=== PATIENT | male | born 1955 | race American Indian/Alaskan Native ===

== ENCOUNTER 2018-07-23 10:21 | Inpatient (IN) | payer MEDICARE, OTHER ==
[~2018-07-23 10:21] MED LIST: Sodium Bicarbonate (8.4%) 50 Meq Syringe ONE
--- NOTE | 2018-07-23 10:29 | C.PDOC ---
History Of Present Illness Patient BIBA from dialysis s/p cardiac arrest (completed 3 hrs). As per EMS, patient was eating a protein bar and then arrested (? choking episode). He was given epi x6 + CaCl in the field, and shocked once (ventricular fibrillation). Arrives to ED intubated, with CPR in progress. Time Seen by Provider: 07/23/18 10:21 Chief Complaint (Nursing): Cardiac Arrest History Per: EMS Reason For Code Blue: Full Arrest Circumstances: Brought To ED By EMS Arrest Witnessed By: Nurse Down-Time Before ACLS: Mins (60 minutes) Treatment Initiated Prior To MD Arrival: Yes: CPR, BVM Ventilations, Intubation, Defibrillation, IVF, ACLS Medication Initiation, IV Access - Initial Findings Mentation: Unresponsive Respirations: None (Assisted) Past Medical History Reviewed: Historical Data, Nursing Documentation, Vital Signs - Medical History PMH: No Chronic Diseases Family History: States: No Known Family Hx Review Of Systems Review Of Systems: ROS cannot be obtained secondary to pt's inabilty to answer questions. Physical Exam - Physical Exam Appears: Other (unresponsive ) Head: Atraumatic, Normacephalic Eye(s): bilateral: Other (fixed B/L ) Oral Mucosa: Moist Cardiovascular: Other (pulseless) Respiratory: Other (assisted ventilations, equal breath sounds B/L ) Gastrointestinal/Abdominal: Normal Exam, Bowel Sounds, Soft, No Tenderness, Other (obese) ED Course And Treatment - Laboratory Results Result Diagrams: 07/23/18 11:04 07/23/18 11:04 O2 Sat by Pulse Oximetry: 100 (ambu) Pulse Ox Interpretation: Normal Progress Note: Epi x1 given, patientregained pulse at next pulse check - atrial fibrillation on EKG. Approx ten minutes later, patient become bradycardic and then lost pulse again. Epi x1 given and patient regained pulse. IO right tibia inserted by me, (+) good flushing. Blood drawn from right brachial artery by me. Patient lost pulse again - epi x1 and CPR started. At next rhythm check (+) good pulse with organized rhythm. Spoke with plumbing and heating mechanic Dr. Carty, will come down and see patient. Patient's in ED, made aware of michael wayne's condition and multiple arrests. He wants everything done for patient. Central Line Placement - Central Line Placement Indication: Emergent IV Access Central Line Placement: Left: Femoral The Area Was Thoroughly Prepared With: Chlorhexidine Procedure: Triple Lumen, Placed Using Standard Seldinger Technique, Catheter Was Sewn Into Place, Sterile Dressing Placed Over Line, Procedure Tolerated Well Disposition - Disposition Forms: [employer] (Indonesian)
[2018-07-23 10:42] VITALS: BMI 30.4
[2018-07-23] MEDS ORDERED: DOPamine 400mg/250ml D5W 400 MG/250 ML BAG IV ONE (10:47)
[2018-07-23 11:15] LABS: BASO # 0.1 K/uL (0.0-0.2); BASO % 0.4 % (0.0-2.0); EOS # 0.4 K/uL (0.0-0.7); EOS % 1.5 % (0.0-4.0); HEMOGLOBIN 9.5 g/dL (12.0-18.0); LYMPH # 10.1 K/uL (1.0-4.3); LYMPH % 43.3 % (20.0-40.0); MEAN CELL VOLUME 93.8 fL (80.0-94.0); MEAN CORPUSCULAR HEMOGLOBIN 27.5 pg (27.0-31.0); MEAN CORPUSCULAR HGB CONC 29.4 g/dL (33.0-37.0); MEAN PLATELET VOLUME 8.3 fL (7.2-11.7); MONO # 1.1 K/uL (0.0-0.8); MONO % 4.9 % (0.0-10.0); NEUT # 11.6 K/uL (1.8-7.0); NEUT % 49.9 % (50.0-75.0); NRBC % 0.3 % (0.0-2.0); RBC 3.46 Mil/uL (4.40-5.90); RED CELL DISTRIBUTION WIDTH 16.7 % (11.5-14.5); WHITE BLOOD COUNT 23.3 K/uL (4.8-10.8)
[2018-07-23 11:22] LABS: INR 1.1; PROTHROMBIN TIME 12.5 SECONDS (9.7-12.2)
[2018-07-23 11:25] LABS: ALB/GLOB RATIO 1.6 (1.0-2.1); ALBUMIN 3.9 g/dL (3.5-5.0); CALCIUM 9.6 mg/dl (8.6-10.4)
--- NOTE | 2018-07-23 11:45 | CP.PCM.CON ---
History of Present Illness - History of Present Illness History of Present Illness: ICU Consult Note for Dr. Carty This is a 63 y o male with PMhx HIV (dx in 2005, currently on HAART tx), DM, HTN, HLD, CAD s/p 3 stents, and ESRD on HD MWF, who presented to the ED [facility] s/p cardiac arrest at dialysis (completed 3 hrs of tx). As per EMS pt was eating a protein bar and then arrested, possible choking episode. Pt was given Epi x6 and CaCl in the field, shock x1 given for V-fib. Pt arrived in the ED s/p intubation, with CPR in progress. Epi x1 additionally given in ED, pt achieved ROSC at next pulse check, A-fib was present on EKG in ED. 10 mins later, pt became bradycardic and then pulseness. Epi x1 was given again and pt regained pulse. S/p IO placement in R tibia x1. Pt then lost pulse again, epi x1 given, CPR re-initiated. At next rhythm check pt regained pulse and organized rhythm was present on loaf counter. Reason for ICU consult was for s/p cardiac arrest x3. Unable to obtain HPI and ROS from pt due to pt's current clinical status. Pt's at bedside provided most of hx leading up to presentation to ED. As per , pt presented with productive cough with white sputum since last Monday07/20/18, instructed pt to go to ED because symptoms were not improving, but pt stated at time that he did not feel that terrible and would go to his dialysis appt this am before reconsidering. Compliant with home medications and dialysis treatments as per pt's . PMhx: as noted above PSurgHx: cardiac stents x3, s/p AV fistula placement in 2017 Allergies: peanut butter (hives) Home meds: reviewed as per JUN Fam hx: unknown Soc hx: Former light cigarette smoker quit 30 y ago; denies EtOH or illicit drug use; lives at home with Primary survey statistician: Dr. Guthrie ([facility] [place] Primary ID: Dr. Saenz Past Patient History - Past Social History Smoking Status: Unknown If Ever Smoked - PSYCHIATRIC Hx Substance Use: No (UNKNOWN) - SURGICAL HISTORY Hx Surgeries: (UNKNOWN) - ANESTHESIA Hx Anesthesia: No (UNKNOWN) Meds Allergies/Adverse Reactions: Allergies Allergy/AdvReac Type Severity Reaction Status Date / Time No Known Allergies Allergy Verified 07/23/18 10:41 Results - Vital Signs Recent Vital Signs: Last Vital Signs Temp Pulse 93 H 07/23/18 11:33 Resp 16 07/23/18 11:33 BP 94/49 L 07/23/18 11:33 Pulse Ox 100 07/23/18 11:33 - Labs Result Diagrams: 07/23/18 14:44 07/23/18 14:44 Labs: Laboratory Results - last 24 hr 07/23/18 07/23/18 07/23/18 11:04 11:04 11:04 WBC 23.3 H RBC 3.46 L Hgb 9.5 L Hct 32.5 L MCV 93.8 MCH 27.5 MCHC 29.4 L RDW 16.7 H Plt Count 99 L MPV 8.3 Neut % (Auto) 49.9 L Lymph % (Auto) 43.[address] [place] [facility] % (Auto) 4.9 Eos % (Auto) 1.5 Baso % (Auto) 0.4 Neut # (Auto) 11.6 H Lymph # (Auto) 10.[address] [place] [facility] # (Auto) 1.1 H Eos # (Auto) 0.4 Baso # (Auto) 0.1 Differential Comment PT 12.5 H INR 1.1 APTT 45 H Sodium 141 Potassium 3.1 L Chloride 95 L Carbon Dioxide 16 L Anion Gap 32 H BUN 13 Creatinine 6.6 H Est GFR ( Amer) 10 Est GFR (Non-Af Amer) 9 Random Glucose 304 H Calcium 9.6 Total Bilirubin 0.4 ALT 335 H Alkaline Phosphatase 49 Total Creatine Kinase 277 H Total Protein 6.4 Albumin 3.9 Globulin 2.4 Albumin/Globulin Ratio 1.6 Assessment & Plan - Assessment and Plan (Free Text) Assessment: This is a 63 y o male with PMhx HIV (dx in 2004, currently on HAART tx), DM, HTN, HLD, CAD s/p 3 stents, and ESRD on HD MWF, who presented to the ED [facility] s/p cardiac arrest at dialysis (completed 3 hrs of tx). Reason for ICU consult was for s/p cardiac arrest x3. Plan: Neuro: -Intubated, unable to assess at this time -Cont to monitor -CT head on admission: Mild-moderate diffuse and conflient chronic periventricular white matter ischemic changes seen extending peripherally into the deep and subcortical white matter both cerebral hemispheres. Additionally, there also appears to be scattered chronic b/l basal nuclei lacunar type infarcts. Note possibility of a small hyperacute infarct cannot be excluded based on this exam. Mild to moderate generalized volume loss. Mucoperiosteal inflammatory changes seen within all the paranasal sinuses. Fusion anomaly anterior arch C1. Cardio: -S/p cardiac arrest x3 as noted above in detail -Hypothermic protocol -Tylenol, Meperidine prn for chills -Hx HTN, HLD, CAD s/p 3 stents -Trop elevated on admission, cont to trend q8h -BNP elevated on admission -Cardiology consulted, Dr. eLón, recs appreciated -Echo pending -ASA, Plavix -Lasix bid, monitor K -Zetia -Metoprolol, Procardia XL -Crestor -Pending A1c and lipid panel Pulm: -Currently on ventilator s/p intubation 2/2 cardiac arrest -Metabolic acidosis present on ABG on admission: 7.03/23/267/6.8 -Duoneb q4h -Cont to monitor -Maintain O2 sat > 92% GI: -NPO -Protonix -No acute issues at this time Renal: -Hx ESRD on HD MWF -Nephrology consulted (Dr. Queen), recs appreciated -BUN/Cr 13/6.6 -Cont to trend I's/O's ID: -Hx HIV on HAART rx, home meds restarted -ID consulted, Dr. Hamilton, recs appreciated -Leukocytosis -On hypothermic protocol s/p cardiac arrest -No anbx at this time Heme: -H/H demonstrates anemia, may be 2/2 HIV diagnosis -Pending iron studies, B12, folate, retic ct -Thrombocytopenia corrected on repeat CBC, cont to trend -L-shift present PPX: -Protonix, Heparin -Currently full code status Pt seen, examined with, and plan discussed with Dr. Carty, attending physician. Momo Hsu DO PGY-1, Benefit Director Pager #[phone]
[2018-07-23 11:49] LABS: CK-MB 5.15 ng/mL (0.0-3.38)
[2018-07-23 11:57] LABS: ARTERIAL BLOOD GAS HCO3 6.8 mmol/L (21-28); ARTERIAL BLOOD GAS O2 SAT 100.6 % (95-98); ARTERIAL BLOOD GAS PCO2 23 mm/Hg (35-45); ARTERIAL BLOOD GAS PH 7.03 (7.35-7.45); ARTERIAL BLOOD GAS PO2 267 mm/Hg (80-100); ARTERIAL BLOOD GAS TCO2 6.8 mmol/L (22-28)
[2018-07-23 12:13] LABS: TROPONIN I 0.224 ng/mL (0.00-0.120)
[2018-07-23] MEDS ORDERED: DOPamine 400mg/250ml D5W 400 MG/250 ML BAG IV STA (12:18)
--- NOTE | 2018-07-23 12:38 | RAD ---
Date of service: 07/23/2018 PROCEDURE: CHEST RADIOGRAPH, 1 VIEW HISTORY: chest pain COMPARISON: None available. FINDINGS: Endotracheal tube terminates 2.3 cm proximal to the belkis. The nasogastric tube terminates in the stomach. LUNGS: The lungs are well inflated. There is mild pulmonary venous congestion with redistribution PLEURA: No pneumothorax or pleural effusion. CARDIOVASCULAR: Severe cardiomegaly. There are aortic atherosclerotic calcifications present. OSSEOUS STRUCTURES: Within normal limits for the patient's age. VISUALIZED UPPER ABDOMEN: Normal. OTHER FINDINGS: None. IMPRESSION: Endotracheal tube terminates 2.3 cm proximal to the belkis. Nasogastric tube terminates in the stomach. Severe cardiomegaly and mild pulmonary venous congestion with redistribution.
[2018-07-23] MEDS ORDERED: Sodium Chloride 0.9% 500 ML IV ONE (14:27)
[2018-07-23] MEDS ORDERED: Sodium Bicarbonate (8.4%) 50 Meq Syringe IVP ONE (14:30)
--- NOTE | 2018-07-23 14:40 | CT ---
Date of service: 07/23/2018 PROCEDURE: CT HEAD WITHOUT CONTRAST. HISTORY: Rule out hemorrhage COMPARISON: No prior study available for comparison. TECHNIQUE: Axial computed tomography images were obtained through the head/brain without intravenous contrast. Radiation dose: Total exam DLP = 1418.95 mGy-cm. This CT exam was performed using one or more of the following dose reduction techniques: Automated exposure control, adjustment of the mA and/or kV according to patient size, and/or use of iterative reconstruction technique. FINDINGS: HEMORRHAGE: No intracranial hemorrhage. BRAIN: Mild-moderate diffuse and confluent chronic periventricular white matter ischemic changes seen extending peripherally into the deep and subcortical white matter both cerebral hemispheres. Additionally, there also appears to be scattered chronic bilateral basal nuclei lacunar type infarcts. Note possibility of a small hyperacute infarct cannot be excluded based on this exam. Mild to moderate generalized volume loss. Vascular calcifications both carotid siphons and vertebral arteries. VENTRICLES: No obstructive hydrocephalus. CALVARIUM: Calvarium intact Note made of what probably represents a fusion anomaly (incomplete fusion left parasagittal anterior arch of C1 vertebral body. PARANASAL SINUSES: Mild mucosal thickening seen within multiple ethmoid air cells with extension superiorly into the inferior aspect of the frontal sinus.. Mucosal thickening with questionable small fluid levels both maxillary antra. There is also minor mucosal thickening in the sphenoid sinus MASTOID AIR CELLS: Unremarkable as visualized. No inflammatory changes. OTHER FINDINGS: Changes of bilateral cataract surgery. IMPRESSION: Mild-moderate diffuse and confluent chronic periventricular white matter ischemic changes seen extending peripherally into the deep and subcortical white matter both cerebral hemispheres. Additionally, there also appears to be scattered chronic bilateral basal nuclei lacunar type infarcts. Note possibility of a small hyperacute infarct cannot be excluded based on this exam. Mild to moderate generalized volume loss. Mucoperiosteal inflammatory changes seen within all the paranasal sinuses. 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
[2018-07-23 14:50] LABS: BASO % 0.3 % (0.0-2.0); EOS % 0.2 % (0.0-4.0); HEMOGLOBIN 10.1 g/dL (12.0-18.0); LYMPH # 1.1 K/uL (1.0-4.3); LYMPH % 7.4 % (20.0-40.0); MEAN CORPUSCULAR HEMOGLOBIN 28.1 pg (27.0-31.0); MEAN CORPUSCULAR HGB CONC 31.5 g/dL (33.0-37.0); MEAN PLATELET VOLUME 8.8 fL (7.2-11.7); MONO # 1.2 K/uL (0.0-0.8); MONO % 7.7 % (0.0-10.0); NEUT # 12.9 K/uL (1.8-7.0); NEUT % 84.4 % (50.0-75.0); NRBC % 0.3 % (0.0-2.0); PLATELET COUNT 178 K/uL (130-400); RBC 3.59 Mil/uL (4.40-5.90); WHITE BLOOD COUNT 15.2 K/uL (4.8-10.8)
[2018-07-23 15:00] LABS: SQUAMOUS EPITHIAL < 1 /hpf (0-5); URINE BACTERIA RARE (<OCC); URINE BILIRUBIN NEGATIVE (NEGATIVE); URINE BLOOD NEGATIVE (NEGATIVE); URINE CLARITY Hazy (Clear); URINE COLOR Yellow (YELLOW); URINE GLUCOSE (UA) NORMAL (Normal); URINE LEUKOCYTE ESTERASE NEG Leu/uL (Negative); URINE PROTEIN 1+ mg/dL (NEGATIVE); URINE UROBILINOGEN NORMAL mg/dL (0.2-1.0)
[2018-07-23 15:06] LABS: MEAN CELL VOLUME 89.3 fL (80.0-94.0)
[2018-07-23 15:14] LABS: ALB/GLOB RATIO 1.5 (1.0-2.1); ALBUMIN 4.5 g/dL (3.5-5.0); CALCIUM 9.4 mg/dl (8.6-10.4)
[2018-07-23] MEDS: Albuterol-Ipratrop 3 mg / 0.5 (3 ml) UD INH SCH ×2 (15:40→19:10)
[2018-07-23 15:50] LABS: BANDS 2 % (0-2); LYMPHOCYTE 7 % (20-40); MONOCYTE 3 % (0-10); NEUTROPHIL 88 % (50-75); TOTAL CELLS COUNTED 100
[2018-07-23 15:51] LABS: ANISOCYTOSIS SLIGHT; HYPOCHROMIC SLIGHT; OVALOCYTES SLIGHT; PLATELET ESTIMATE NORMAL (NORMAL); POLYCHROMIC SLIGHT
[2018-07-23] MEDS ORDERED: Sodium Bicarbonate (8.4%) 50 mEq Vial IVP ONE (16:44)
[2018-07-23] MEDS ORDERED: Sodium Bicarbonate (8.4%) 50 mEq Vial ONE (16:48)
[2018-07-23] MEDS ORDERED: MethylPREDNISolone 40 mg Vial IVP STA (16:54)
[2018-07-23] MEDS ORDERED: Albumin Human 25% (12.5 gm/50 ml) IV ONE (16:54)
[2018-07-23] MEDS: DOPamine 400mg/250ml D5W 400 MG/250 ML BAG IV PRN ×2 (16:59→22:16)
[2018-07-23 17:49] LABS: TROPONIN I 61.5 ng/mL (0.00-0.120)
[2018-07-23 19:35] LABS: ABG ALLEN TEST POS; ARTERIAL BLOOD GAS HCO3 15.3 mmol/L (21-28); ARTERIAL BLOOD GAS O2 SAT 99.5 % (95-98); ARTERIAL BLOOD GAS PCO2 43 mm/Hg (35-45); ARTERIAL BLOOD GAS PH 7.17 (7.35-7.45); ARTERIAL BLOOD GAS PO2 285 mm/Hg (80-100)
--- NOTE | 2018-07-23 20:47 | CP.CCUPN ---
CCU Subjective - Physician Review Events Since Last Encounter (Free Text): 07/23/18 20:46 patient became bradycardic atropine given,then pulseless CPR performed,one dose epinephrine and bicarbonate given.Regained pulse 07/23/18 20:48 07/23/18 20:48 CCU Objective - Vital Signs / Intake & Output Vital Signs (Last 4 hours): Vital Signs Temp Pulse Resp BP Pulse Ox 07/23/18 20:14 84 18 87/62 L 07/23/18 20:00 48 L 20 99 07/23/18 19:34 71 20 119/82 54 L 07/23/18 19:17 67 07/23/18 19:03 69 14 100/64 100 07/23/18 19:00 91.8 F L 70 15 93/66 L 100 07/23/18 18:33 68 13 81/60 L 100 07/23/18 18:30 92.8 F L 68 24 07/23/18 18:21 94.6 F L 67 14 86/57 L 100 07/23/18 18:10 95/62 L 07/23/18 18:04 67 15 95/62 L 100 07/23/18 18:00 94.6 F L 68 24 95/62 L 07/23/18 17:34 73 15 106/70 88 L 07/23/18 17:30 94.6 F L 71 16 106/70 07/23/18 17:04 107 H 14 150/87 100 07/23/18 17:00 96.4 F L 108 H 13 150/87 07/23/18 16:59 47/32 L 07/23/18 16:56 142 H 17 107/74 95 07/23/18 16:53 69 20 52/28 L 100 Intake and Output (Last 8hrs): Intake & Output 07/23/18 07/23/18 07/23/18 06:59 14:59 22:59 Intake Total 235 1279.8 Output Total 106 Balance 235 1173.8 Weight 206 lb 11.2 oz Intake: IV 235 236 Intake, IV Amount 1043.8 Left Distal Port Femoral 50 Left Medial Port Femoral 191.3 Left Proximal Port 802.5 Femoral Output: Urine 106 Urethral (Herron) 51 Other: Voiding Method Indwelling Catheter - Physical Exam Physical Exam Limitations: Positive for: Other (orally intubated,unresponsive to pain) Head: Positive for: Atraumatic, Normocephalic Pupils: Positive for: Non-Reactive Mouth: Positive for: Moist Mucous Membranes Respiratory/Chest: Positive for: Clear to Auscultation Cardiovascular: Positive for: Regular Rate and Rhythm - Medications Active Medications: Active Medications Generic Name Dose Route Start Last Admin Trade Name Freq PRN Reason Stop Dose Admin Albuterol/Ipratropium 3 ml 07/23/18 16:00 07/23/18 19:10 Duoneb 3 Mg/0.5 Mg (3 Ml) Ud INH 3 ml RQ4 [facility] Administration Calcium Acetate 667 mg 07/24/18 10:00 Phoslo PO DAILY [facility] Clopidogrel Bisulfate 75 mg 07/24/18 10:00 Plavix PO DAILY [facility] Ezetimibe 10 mg 07/23/18 22:00 Zetia PO HS [facility] Famotidine 20 mg 07/24/18 10:00 Pepcid PO DAILY [facility] Gabapentin 100 mg 07/23/18 22:00 Neurontin PO HS [facility] Heparin Sodium (Porcine) 5,000 units 07/23/18 22:00 Heparin SC Q8 [facility] Home Med 1 tab 07/24/18 10:00 Patient's Own Medication PO DAILY [facility] Norepinephrine Bitartrate 4 mg 254 mls @ 15.24 mls/hr 07/23/18 16:42 07/23/18 20:28 / Sodium Chloride IV 20 mcg/min .[id number] PRN 76.2 mls/hr TITRATE PER MD ORDER Titration Protocol 4 MCG/MIN Dopamine HCl/Dextrose 400 mg in 250 mls @ 7.032 mls/hr 07/23/18 17:05 07/23/18 20:27 Dopamine 400mg/250ml D5w IV 20 mcg/kg/min .Q24H PRN 70.319 mls/hr TITRATE PER MD ORDER Titration Protocol 2 MCG/KG/MIN Meperidine HCl 25 mg 07/23/18 15:06 Demerol IVP Q30M PRN Rigors Potassium Chloride 20 meq 07/24/18 10:00 Potassium Chloride Oral Soln PO DAILY [facility] Raltegravir 400 mg 07/23/18 22:00 Isentress PO Q12H [facility] Protocol - Patient Studies Lab Studies: Lab Studies 03/25/19 03/25/19 03/25/19 Range/Units 19:30 16:40 14:44 WBC (4.8-10.8) K/uL RBC (4.40-5.90) Mil/uL Hgb (12.0-18.0) g/dL Hct (35.0-51.0) % MCV (80.0-94.0) fL MCH (27.0-31.0) pg MCHC (33.0-37.0) g/dL RDW (11.5-14.5) % Plt Count (130-400) K/uL MPV (7.2-11.7) fL Neut % (Auto) (50.0-75.0) % Lymph % (Auto) (20.0-40.0) % [place] % (Auto) (0.0-10.0) % Eos % (Auto) (0.0-4.0) % Baso % (Auto) (0.0-2.0) % Neut # (Auto) (1.8-7.0) K/uL Lymph # (Auto) (1.0-4.3) K/uL [place] # (Auto) (0.0-0.8) K/uL Eos # (Auto) (0.0-0.7) K/uL Baso # (Auto) (0.0-0.2) K/uL Neutrophils % (Manual) (50-75) % Band Neutrophils % (0-2) % Lymphocytes % (Manual) (20-40) % Monocytes % (Manual) (0-10) % Differential Comment Platelet Estimate (NORMAL) Polychromasia Hypochromasia (manual) Anisocytosis (manual) Ovalocytes PT (9.7-12.2) SECONDS INR APTT (21-34) SECONDS Puncture Site Rba pCO2 43 (35-45) mm/Hg pO2 285 H (80-100) mm/Hg HCO3 15.3 L (21-28) mmol/L ABG pH 7.17 L* (7.35-7.45) ABG Total CO2 17.0 L (22-28) mmol/L ABG O2 Saturation 99.5 H (95-98) % ABG Base Excess -12.4 L (-2.0-3.0) mmol/L Cruz Test Pos ABG Potassium 3.7 (3.6-5.2) mmol/L A-a O2 Difference 374.0 mm/Hg Respiratory Index 1.3 Glucose 247 H (75-110) mg/dl Lactate 15.6 H* (0.7-2.1) mmol/L Vent Mode Prvc Mechanical Rate 20 FiO2 100.0 % Tidal Volume 500 PEEP 5 Crit Value Called To Dr nuñez Crit Value Called By [facility] Crit Value Read Back Y Blood Gas Notified Time 1934 Sodium 142.0 (132-148) mmol/L Potassium (3.6-5.2) mmol/L Chloride 100.0 (98-107) mmol/L Carbon Dioxide (22-30) mmol/L Anion Gap (10-20) BUN (9-20) mg/dL Creatinine (0.8-1.5) mg/dL Est GFR ( Amer) Est GFR (Non-Af Amer) Random Glucose (75-110) mg/dL Calcium (8.6-10.4) mg/dl Phosphorus (2.5-4.5) mg/dL Magnesium (1.6-2.3) mg/dL Total Bilirubin (0.2-1.3) mg/dL AST (17-59) U/L ALT (21-72) U/L Alkaline Phosphatase (38-126) U/L Total Creatine Kinase 3962 H (55-170) U/L CK-MB (Mass) 103 H (0.0-3.38) ng/mL Troponin I 61.5000 H* (0.00-0.120) ng/mL NT-Pro-B Natriuret Pep (0-900) pg/mL Total Protein (6.3-8.3) g/dL Albumin (3.5-5.0) g/dL Globulin (2.2-3.9) gm/dL Albumin/Globulin Ratio (1.0-2.1) Arterial Blood Potassium 3.7 (3.6-5.2) mmol/L Urine Color Yellow (YELLOW) Urine Clarity Hazy (Clear) Urine pH 5.0 (5.0-8.0) Ur Specific [place] 1.023 (1.003-1.030) Urine Protein 1+ H (NEGATIVE) mg/dL Urine Glucose (UA) Normal (Normal) mg/dL Urine Ketones Negative (NEGATIVE) mg/dL Urine Blood Negative (NEGATIVE) Urine Nitrate Negative (NEGATIVE) Urine Bilirubin Negative (NEGATIVE) Urine Urobilinogen Normal (0.2-1.0) mg/dL Ur Leukocyte Esterase Neg (Negative) Michelle/uL Urine WBC (Auto) 2 (0-5) /hpf Urine RBC (Auto) 3 (0-3) /hpf Ur Squamous Epith Cells < 1 (0-5) /hpf Urine Bacteria Rare (<OCC) Blood Type Antibody Screen 07/23/18 07/23/18 07/23/18 Range/Units 14:44 14:44 11:50 WBC 15.2 H (4.8-10.8) K/uL RBC 3.59 L (4.40-5.90) Mil/uL Hgb 10.1 L (12.0-18.0) g/dL Hct 32.1 L (35.0-51.0) % MCV 89.3 D (80.0-94.0) fL MCH 28.1 (27.0-31.0) pg MCHC 31.5 L (33.0-37.0) g/dL RDW 17.0 H (11.5-14.5) % Plt Count 178 (130-400) K/uL MPV 8.8 (7.2-11.7) fL Neut % (Auto) 84.4 H (50.0-75.0) % Lymph % (Auto) 7.4 L (20.0-40.0) % [place] % (Auto) 7.7 (0.0-10.0) % Eos % (Auto) 0.2 (0.0-4.0) % Baso % (Auto) 0.3 (0.0-2.0) % Neut # (Auto) 12.9 H (1.8-7.0) K/uL Lymph # (Auto) 1.1 (1.0-4.3) K/uL [place] # (Auto) 1.2 H (0.0-0.8) K/uL Eos # (Auto) 0.0 (0.0-0.7) K/uL Baso # (Auto) 0.0 (0.0-0.2) K/uL Neutrophils % (Manual) 88 H (50-75) % Band Neutrophils % 2 (0-2) % Lymphocytes % (Manual) 7 L (20-40) % Monocytes % (Manual) 3 (0-10) % Differential Comment Platelet Estimate Normal (NORMAL) Polychromasia Slight Hypochromasia (manual) Slight Anisocytosis (manual) Slight Ovalocytes Slight PT (9.7-12.2) SECONDS INR APTT (21-34) SECONDS Puncture Site Rb pCO2 23 L (35-45) mm/Hg pO2 267 H (80-100) mm/Hg HCO3 6.8 L* (21-28) mmol/L ABG pH 7.03 L* (7.35-7.45) ABG Total CO2 6.8 L (22-28) mmol/L ABG O2 Saturation 100.6 H (95-98) % ABG Base Excess -23.3 L (-2.0-3.0) mmol/L Cruz Test Na ABG Potassium 1.2 L* (3.6-5.2) mmol/L A-a O2 Difference 417.0 mm/Hg Respiratory Index 1.6 Glucose 111 H (75-110) mg/dl Lactate 6.0 H* (0.7-2.1) mmol/L Vent Mode Prvc Mechanical Rate 16 FiO2 100.0 % Tidal Volume 500 PEEP 5 Crit Value Called To T deshawn do Crit Value Called By Lily ward treating engineer helper Crit Value Read Back Y Blood Gas Notified Time 1200 Sodium 138 158.0 H (132-148) mmol/L Potassium 3.5 L (3.6-5.2) mmol/L Chloride 92 L 131.0 H (98-107) mmol/L Carbon Dioxide 25 (22-30) mmol/L Anion Gap 24 H (10-20) BUN 18 (9-20) mg/dL Creatinine 7.9 H* (0.8-1.5) mg/dL Est GFR ( Amer) 8 Est GFR (Non-Af Amer) 7 Random Glucose 282 H (75-110) mg/dL Calcium 9.4 (8.6-10.4) mg/dl Phosphorus 4.0 (2.5-4.5) mg/dL Magnesium 2.4 H (1.6-2.3) mg/dL Total Bilirubin 0.7 (0.2-1.3) mg/dL AST 527 H D (17-59) U/L ALT 446 H D (21-72) U/L Alkaline Phosphatase 74 (38-126) U/L Total Creatine Kinase (55-170) U/L CK-MB (Mass) (0.0-3.38) ng/mL Troponin I (0.00-0.120) ng/mL NT-Pro-B Natriuret Pep (0-900) pg/mL Total Protein 7.5 (6.3-8.3) g/dL Albumin 4.5 (3.5-5.0) g/dL Globulin 3.0 (2.2-3.9) gm/dL Albumin/Globulin Ratio 1.5 (1.0-2.1) Arterial Blood Potassium 1.2 L* (3.6-5.2) mmol/L Urine Color (YELLOW) Urine Clarity (Clear) Urine pH (5.0-8.0) Ur Specific [place] (1.003-1.030) Urine Protein (NEGATIVE) mg/dL Urine Glucose (UA) (Normal) mg/dL Urine Ketones (NEGATIVE) mg/dL Urine Blood (NEGATIVE) Urine Nitrate (NEGATIVE) Urine Bilirubin (NEGATIVE) Urine Urobilinogen (0.2-1.0) mg/dL Ur Leukocyte Esterase (Negative) Michelle/uL Urine WBC (Auto) (0-5) /hpf Urine RBC (Auto) (0-3) /hpf Ur Squamous Epith Cells (0-5) /hpf Urine Bacteria (<OCC) Blood Type Antibody Screen 07/23/18 07/23/18 07/23/18 Range/Units 11:26 11:04 11:04 WBC (4.8-10.8) K/uL RBC (4.40-5.90) Mil/uL Hgb (12.0-18.0) g/dL Hct (35.0-51.0) % MCV (80.0-94.0) fL MCH (27.0-31.0) pg MCHC (33.0-37.0) g/dL RDW (11.5-14.5) % Plt Count (130-400) K/uL MPV (7.2-11.7) fL Neut % (Auto) (50.0-75.0) % Lymph % (Auto) (20.0-40.0) % [place] % (Auto) (0.0-10.0) % Eos % (Auto) (0.0-4.0) % Baso % (Auto) (0.0-2.0) % Neut # (Auto) (1.8-7.0) K/uL Lymph # (Auto) (1.0-4.3) K/uL [place] # (Auto) (0.0-0.8) K/uL Eos # (Auto) (0.0-0.7) K/uL Baso # (Auto) (0.0-0.2) K/uL Neutrophils % (Manual) (50-75) % Band Neutrophils % (0-2) % Lymphocytes % (Manual) (20-40) % Monocytes % (Manual) (0-10) % Differential Comment Platelet Estimate (NORMAL) Polychromasia Hypochromasia (manual) Anisocytosis (manual) Ovalocytes PT 12.5 H (9.7-12.2) SECONDS INR 1.1 APTT 45 H (21-34) SECONDS Puncture Site pCO2 (35-45) mm/Hg pO2 (80-100) mm/Hg HCO3 (21-28) mmol/L ABG pH (7.35-7.45) ABG Total CO2 (22-28) mmol/L ABG O2 Saturation (95-98) % ABG Base Excess (-2.0-3.0) mmol/L Cruz Test ABG Potassium (3.6-5.2) mmol/L A-a O2 Difference mm/Hg Respiratory Index Glucose (75-110) mg/dl Lactate (0.7-2.1) mmol/L Vent Mode Mechanical Rate FiO2 % Tidal Volume PEEP Crit Value Called To Crit Value Called By Crit Value Read Back Blood Gas Notified Time Sodium 141 (132-148) mmol/L Potassium 3.1 L (3.6-5.2) mmol/L Chloride 95 L (98-107) mmol/L Carbon Dioxide 16 L (22-30) mmol/L Anion Gap 32 H (10-20) BUN 13 (9-20) mg/dL Creatinine 6.6 H (0.8-1.5) mg/dL Est GFR ( Amer) 10 Est GFR (Non-Af Amer) 9 Random Glucose 304 H (75-110) mg/dL Calcium 9.6 (8.6-10.4) mg/dl Phosphorus (2.5-4.5) mg/dL Magnesium (1.6-2.3) mg/dL Total Bilirubin 0.4 (0.2-1.3) mg/dL AST 266 H (17-59) U/L ALT 335 H (21-72) U/L Alkaline Phosphatase 49 (38-126) U/L Total Creatine Kinase 277 H (55-170) U/L CK-MB (Mass) 5.15 H (0.0-3.38) ng/mL Troponin I 0.2240 H* (0.00-0.120) ng/mL NT-Pro-B Natriuret Pep 58457 H (0-900) pg/mL Total Protein 6.4 (6.3-8.3) g/dL Albumin 3.9 (3.5-5.0) g/dL Globulin 2.4 (2.2-3.9) gm/dL Albumin/Globulin Ratio 1.6 (1.0-2.1) Arterial Blood Potassium (3.6-5.2) mmol/L Urine Color (YELLOW) Urine Clarity (Clear) Urine pH (5.0-8.0) Ur Specific [place] (1.003-1.030) Urine Protein (NEGATIVE) mg/dL Urine Glucose (UA) (Normal) mg/dL Urine Ketones (NEGATIVE) mg/dL Urine Blood (NEGATIVE) Urine Nitrate (NEGATIVE) Urine Bilirubin (NEGATIVE) Urine Urobilinogen (0.2-1.0) mg/dL Ur Leukocyte Esterase (Negative) Michelle/uL Urine WBC (Auto) (0-5) /hpf Urine RBC (Auto) (0-3) /hpf Ur Squamous Epith Cells (0-5) /hpf Urine Bacteria (<OCC) Blood Type A POSITIVE Antibody Screen Negative 07/23/18 Range/Units 11:04 WBC 23.3 H (4.8-10.8) K/uL RBC 3.46 L (4.40-5.90) Mil/uL Hgb 9.5 L (12.0-18.0) g/dL Hct 32.5 L (35.0-51.0) % MCV 93.8 (80.0-94.0) fL MCH 27.5 (27.0-31.0) pg MCHC 29.4 L (33.0-37.0) g/dL RDW 16.7 H (11.5-14.5) % Plt Count 99 L (130-400) K/uL MPV 8.3 (7.2-11.7) fL Neut % (Auto) 49.9 L (50.0-75.0) % Lymph % (Auto) 43.3 H (20.0-40.0) % [place] % (Auto) 4.9 (0.0-10.0) % Eos % (Auto) 1.5 (0.0-4.0) % Baso % (Auto) 0.4 (0.0-2.0) % Neut # (Auto) 11.6 H (1.8-7.0) K/uL Lymph # (Auto) 10.1 H (1.0-4.3) K/uL [place] # (Auto) 1.1 H (0.0-0.8) K/uL Eos # (Auto) 0.4 (0.0-0.7) K/uL Baso # (Auto) 0.1 (0.0-0.2) K/uL Neutrophils % (Manual) (50-75) % Band Neutrophils % (0-2) % Lymphocytes % (Manual) (20-40) % Monocytes % (Manual) (0-10) % Differential Comment Platelet Estimate (NORMAL) Polychromasia Hypochromasia (manual) Anisocytosis (manual) Ovalocytes PT (9.7-12.2) SECONDS INR APTT (21-34) SECONDS Puncture Site pCO2 (35-45) mm/Hg pO2 (80-100) mm/Hg HCO3 (21-28) mmol/L ABG pH (7.35-7.45) ABG Total CO2 (22-28) mmol/L ABG O2 Saturation (95-98) % ABG Base Excess (-2.0-3.0) mmol/L Cruz Test ABG Potassium (3.6-5.2) mmol/L A-a O2 Difference mm/Hg Respiratory Index Glucose (75-110) mg/dl Lactate (0.7-2.1) mmol/L Vent Mode Mechanical Rate FiO2 % Tidal Volume PEEP Crit Value Called To Crit Value Called By Crit Value Read Back Blood Gas Notified Time Sodium (132-148) mmol/L Potassium (3.6-5.2) mmol/L Chloride (98-107) mmol/L Carbon Dioxide (22-30) mmol/L Anion Gap (10-20) BUN (9-20) mg/dL Creatinine (0.8-1.5) mg/dL Est GFR ( Amer) Est GFR (Non-Af Amer) Random Glucose (75-110) mg/dL Calcium (8.6-10.4) mg/dl Phosphorus (2.5-4.5) mg/dL Magnesium (1.6-2.3) mg/dL Total Bilirubin (0.2-1.3) mg/dL AST (17-59) U/L ALT (21-72) U/L Alkaline Phosphatase (38-126) U/L Total Creatine Kinase (55-170) U/L CK-MB (Mass) (0.0-3.38) ng/mL Troponin I (0.00-0.120) ng/mL NT-Pro-B Natriuret Pep (0-900) pg/mL Total Protein (6.3-8.3) g/dL Albumin (3.5-5.0) g/dL Globulin (2.2-3.9) gm/dL Albumin/Globulin Ratio (1.0-2.1) Arterial Blood Potassium (3.6-5.2) mmol/L Urine Color (YELLOW) Urine Clarity (Clear) Urine pH (5.0-8.0) Ur Specific [place] (1.003-1.030) Urine Protein (NEGATIVE) mg/dL Urine Glucose (UA) (Normal) mg/dL Urine Ketones (NEGATIVE) mg/dL Urine Blood (NEGATIVE) Urine Nitrate (NEGATIVE) Urine Bilirubin (NEGATIVE) Urine Urobilinogen (0.2-1.0) mg/dL Ur Leukocyte Esterase (Negative) Michelle/uL Urine WBC (Auto) (0-5) /hpf Urine RBC (Auto) (0-3) /hpf Ur Squamous Epith Cells (0-5) /hpf Urine Bacteria (<OCC) Blood Type Antibody Screen Laboratory Results - last 24 hr 07/23/18 07/23/18 07/23/18 11:04 11:04 11:04 WBC 23.3 H RBC 3.46 L Hgb 9.5 L Hct 32.5 L MCV 93.8 MCH 27.5 MCHC 29.4 L RDW 16.7 H Plt Count 99 L MPV 8.3 Neut % (Auto) 49.9 L Lymph % (Auto) 43.3 H [place] % (Auto) 4.9 Eos % (Auto) 1.5 Baso % (Auto) 0.4 Neut # (Auto) 11.6 H Lymph # (Auto) 10.1 H [place] # (Auto) 1.1 H Eos # (Auto) 0.4 Baso # (Auto) 0.1 Neutrophils % (Manual) Band Neutrophils % Lymphocytes % (Manual) Monocytes % (Manual) Differential Comment Platelet Estimate Polychromasia Hypochromasia (manual) Anisocytosis (manual) Ovalocytes PT 12.5 H INR 1.1 APTT 45 H Puncture Site pCO2 pO2 HCO3 ABG pH ABG Total CO2 ABG O2 Saturation ABG Base Excess Cruz Test ABG Potassium A-a O2 Difference Respiratory Index Glucose Lactate Vent Mode Mechanical Rate FiO2 Tidal Volume PEEP Crit Value Called To Crit Value Called By Crit Value Read Back Blood Gas Notified Time Sodium 141 Potassium 3.1 L Chloride 95 L Carbon Dioxide 16 L Anion Gap 32 H BUN 13 Creatinine 6.6 H Est GFR ( Amer) 10 Est GFR (Non-Af Amer) 9 Random Glucose 304 H Calcium 9.6 Phosphorus Magnesium Total Bilirubin 0.4 AST 266 H ALT 335 H Alkaline Phosphatase 49 Total Creatine Kinase 277 H CK-MB (Mass) 5.15 H Troponin I 0.2240 H* NT-Pro-B Natriuret Pep 61623 H Total Protein 6.4 Albumin 3.9 Globulin 2.4 Albumin/Globulin Ratio 1.6 Arterial Blood Potassium Urine Color Urine Clarity Urine pH Ur Specific [place] Urine Protein Urine Glucose (UA) Urine Ketones Urine Blood Urine Nitrate Urine Bilirubin Urine Urobilinogen Ur Leukocyte Esterase Urine WBC (Auto) Urine RBC (Auto) Ur Squamous Epith Cells Urine Bacteria Blood Type Antibody Screen 07/23/18 07/23/18 07/23/18 11:26 11:50 14:44 WBC 15.2 H RBC 3.59 L Hgb 10.1 L Hct 32.1 L MCV 89.3 D MCH 28.1 MCHC 31.5 L RDW 17.0 H Plt Count 178 MPV 8.8 Neut % (Auto) 84.4 H Lymph % (Auto) 7.4 L [place] % (Auto) 7.7 Eos % (Auto) 0.2 Baso % (Auto) 0.3 Neut # (Auto) 12.9 H Lymph # (Auto) 1.1 [place] # (Auto) 1.2 H Eos # (Auto) 0.0 Baso # (Auto) 0.0 Neutrophils % (Manual) 88 H Band Neutrophils % 2 Lymphocytes % (Manual) 7 L Monocytes % (Manual) 3 Differential Comment Platelet Estimate Normal Polychromasia Slight Hypochromasia (manual) Slight Anisocytosis (manual) Slight Ovalocytes Slight PT INR APTT Puncture Site Rb pCO2 23 L pO2 267 H HCO3 6.8 L* ABG pH 7.03 L* ABG Total CO2 6.8 L ABG O2 Saturation 100.6 H ABG Base Excess -23.3 L Cruz Test Na ABG Potassium 1.2 L* A-a O2 Difference 417.0 Respiratory Index 1.6 Glucose 111 H Lactate 6.0 H* Vent Mode Prvc Mechanical Rate 16 FiO2 100.0 Tidal Volume 500 PEEP 5 Crit Value Called To Yaima hess do Crit Value Called By Lily ward treating engineer helper Crit Value Read Back Y Blood Gas Notified Time 1200 Sodium 158.0 H Potassium Chloride 131.0 H Carbon Dioxide Anion Gap BUN Creatinine Est GFR ( Amer) Est GFR (Non-Af Amer) Random Glucose Calcium Phosphorus Magnesium Total Bilirubin AST ALT Alkaline Phosphatase Total Creatine Kinase CK-MB (Mass) Troponin I NT-Pro-B Natriuret Pep Total Protein Albumin Globulin Albumin/Globulin Ratio Arterial Blood Potassium 1.2 L* Urine Color Urine Clarity Urine pH Ur Specific [place] Urine Protein Urine Glucose (UA) Urine Ketones Urine Blood Urine Nitrate Urine Bilirubin Urine Urobilinogen Ur Leukocyte Esterase Urine WBC (Auto) Urine RBC (Auto) Ur Squamous Epith Cells Urine Bacteria Blood Type A POSITIVE Antibody Screen Negative 07/23/18 07/23/18 07/23/18 14:44 14:44 16:40 WBC RBC Hgb Hct MCV MCH MCHC RDW Plt Count MPV Neut % (Auto) Lymph % (Auto) [place] % (Auto) Eos % (Auto) Baso % (Auto) Neut # (Auto) Lymph # (Auto) [place] # (Auto) Eos # (Auto) Baso # (Auto) Neutrophils % (Manual) Band Neutrophils % Lymphocytes % (Manual) Monocytes % (Manual) Differential Comment Platelet Estimate Polychromasia Hypochromasia (manual) Anisocytosis (manual) Ovalocytes PT INR APTT Puncture Site pCO2 pO2 HCO3 ABG pH ABG Total CO2 ABG O2 Saturation ABG Base Excess Cruz Test ABG Potassium A-a O2 Difference Respiratory Index Glucose Lactate Vent Mode Mechanical Rate FiO2 Tidal Volume PEEP Crit Value Called To Crit Value Called By Crit Value Read Back Blood Gas Notified Time Sodium 138 Potassium 3.5 L Chloride 92 L Carbon Dioxide 25 Anion Gap 24 H BUN 18 Creatinine 7.9 H* Est GFR ( Amer) 8 Est GFR (Non-Af Amer) 7 Random Glucose 282 H Calcium 9.4 Phosphorus 4.0 Magnesium 2.4 H Total Bilirubin 0.7 AST 527 H D ALT 446 H D Alkaline Phosphatase 74 Total Creatine Kinase 3962 H CK-MB (Mass) 103 H Troponin I 61.5000 H* NT-Pro-B Natriuret Pep Total Protein 7.5 Albumin 4.5 Globulin 3.0 Albumin/Globulin Ratio 1.5 Arterial Blood Potassium Urine Color Yellow Urine Clarity Hazy Urine pH 5.0 Ur Specific [place] 1.023 Urine Protein 1+ H Urine Glucose (UA) Normal Urine Ketones Negative Urine Blood Negative Urine Nitrate Negative Urine Bilirubin Negative Urine Urobilinogen Normal Ur Leukocyte Esterase Neg Urine WBC (Auto) 2 Urine RBC (Auto) 3 Ur Squamous Epith Cells < 1 Urine Bacteria Rare Blood Type Antibody Screen 07/23/18 19:30 WBC RBC Hgb Hct MCV MCH MCHC RDW Plt Count MPV Neut % (Auto) Lymph % (Auto) [place] % (Auto) Eos % (Auto) Baso % (Auto) Neut # (Auto) Lymph # (Auto) [place] # (Auto) Eos # (Auto) Baso # (Auto) Neutrophils % (Manual) Band Neutrophils % Lymphocytes % (Manual) Monocytes % (Manual) Differential Comment Platelet Estimate Polychromasia Hypochromasia (manual) Anisocytosis (manual) Ovalocytes PT INR APTT Puncture Site Rba pCO2 43 pO2 285 H HCO3 15.3 L ABG pH 7.17 L* ABG Total CO2 17.0 L ABG O2 Saturation 99.5 H ABG Base Excess -12.4 L Cruz Test Pos ABG Potassium 3.7 A-a O2 Difference 374.0 Respiratory Index 1.3 Glucose 247 H Lactate 15.6 H* Vent Mode Prvc Mechanical Rate 20 FiO2 100.0 Tidal Volume 500 PEEP 5 Crit Value Called To Dr nuñez Crit Value Called By Martínez [facility] Crit Value Read Back Y Blood Gas Notified Time 1934 Sodium 142.0 Potassium Chloride 100.0 Carbon Dioxide Anion Gap BUN Creatinine Est GFR ( Amer) Est GFR (Non-Af Amer) Random Glucose Calcium Phosphorus Magnesium Total Bilirubin AST ALT Alkaline Phosphatase Total Creatine Kinase CK-MB (Mass) Troponin I NT-Pro-B Natriuret Pep Total Protein Albumin Globulin Albumin/Globulin Ratio Arterial Blood Potassium 3.7 Urine Color Urine Clarity Urine pH Ur Specific [place] Urine Protein Urine Glucose (UA) Urine Ketones Urine Blood Urine Nitrate Urine Bilirubin Urine Urobilinogen Ur Leukocyte Esterase Urine WBC (Auto) Urine RBC (Auto) Ur Squamous Epith Cells Urine Bacteria Blood Type Antibody Screen Radiology Impressions: Radiology Impressions Chest X-Ray 07/23/18 10:32 IMPRESSION: Endotracheal tube terminates 2.3 cm proximal to the belkis. Nasogastric tube terminates in the stomach. Severe cardiomegaly and mild pulmonary venous congestion with redistribution. Head CT 07/23/18 12:22 IMPRESSION: Mild-moderate diffuse and confluent chronic periventricular white matter ischemic changes seen extending peripherally into the deep and subcortical white matter both cerebral hemispheres. Additionally, there also appears to be scattered chronic bilateral basal nuclei lacunar type infarcts. Note possibility of a small hyperacute infarct cannot be excluded based on this exam. Mild to moderate generalized volume loss. Mucoperiosteal inflammatory changes seen within all the paranasal sinuses. 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 EKG/Cardiology Studies: Cardiology / EKG Studies 07/23/18 10:32 ELECTROCARDIOGRAM Stat Comment: Mode Of Transportation: BED Reason For Exam: chest pain Fingerstick Blood Sugar Results: 271 Critical Care Progress Note - Nutrition Nutrition: Nutrition Category Date Time Status NPO Diet [DIET] Diets 07/23/18 Dinner Active Assessment/Plan - Assessment and Plan (Free Text) Assessment: s/p CPR received 1 epi and bicarbonate regained pulse and BP continue code freeze family informed
--- NOTE | 2018-07-23 21:27 | CP.PCM.PN ---
Subjective - Date & Time of Evaluation Date of Evaluation: 07/23/18 Time of Evaluation: 20:10 - Subjective Subjective: House doctor Code Blue note Objective - Vital Signs/Intake and Output Vital Signs (last 24 hours): Temp Pulse Resp BP Pulse Ox 92 F L 85 14 134/88 100 07/23/18 21:00 07/23/18 21:04 07/23/18 21:04 07/23/18 21:22 07/23/18 21:04 Intake and Output: 07/23/18 07/24/18 18:59 06:59 Intake Total 1177.8 644 Output Total 106 Balance 1071.8 644 - Medications Medications: Current Medications Albuterol/Ipratropium (Duoneb 3 Mg/0.5 Mg (3 Ml) Ud) 3 ml INH RQ4 SANDI Last Admin: 07/23/18 19:10 Dose: 3 ml Calcium Acetate (Phoslo) 667 mg PO DAILY [facility] Clopidogrel Bisulfate (Plavix) 75 mg PO DAILY [facility] Ezetimibe (Zetia) 10 mg PO HS [facility] Famotidine (Pepcid) 20 mg PO DAILY [facility] Gabapentin (Neurontin) 100 mg PO HS [facility] Heparin Sodium (Porcine) (Heparin) 5,000 units SC Q8 [facility] Home Med (Patient's Own Medication) 1 tab PO DAILY [facility] Norepinephrine Bitartrate 4 mg (/ Sodium Chloride) 254 mls @ 15.24 mls/hr IV .[id number] PRN; Protocol PRN Reason: TITRATE PER MD ORDER Last Admin: 07/23/18 21:22 Dose: 15 mcg/min, 57.15 mls/hr Dopamine HCl/Dextrose (Dopamine 400mg/250ml D5w) 400 mg in 250 mls @ 7.032 mls/hr IV .Q24H PRN; Protocol PRN Reason: TITRATE PER MD ORDER Last Titration: 07/23/18 21:12 Dose: 15 mcg/kg/min, 52.739 mls/hr Meperidine HCl (Demerol) 25 mg IVP Q30M PRN PRN Reason: Rigors Potassium Chloride (Potassium Chloride Oral Soln) 20 meq PO DAILY [facility] Raltegravir (Isentress) 400 mg PO Q12H [facility]; Protocol - Labs Labs: 07/23/18 14:44 07/23/18 14:44 PT 12.5 SECONDS (9.7-12.2) H 07/23/18 11:04 INR 1.1 07/23/18 11:04 APTT 45 SECONDS (21-34) H 07/23/18 11:04
[2018-07-23] MEDS ORDERED: (Novolin R) Insulin Human Regular 100 units/ml vial SC SCH (22:15)
[2018-07-23] MEDS: (Novolin R) Insulin Human Regular 100 units/ml vial SC SCH ×2 (22:25→23:23)
[2018-07-23 22:35] LABS: BASO % 0.1 % (0.0-2.0); EOS % 0.1 % (0.0-4.0); HEMOGLOBIN 9.5 g/dL (12.0-18.0); LYMPH # 0.8 K/uL (1.0-4.3); LYMPH % 3.8 % (20.0-40.0); MEAN CELL VOLUME 92.4 fL (80.0-94.0); MEAN CORPUSCULAR HEMOGLOBIN 28.2 pg (27.0-31.0); MEAN CORPUSCULAR HGB CONC 30.6 g/dL (33.0-37.0); MEAN PLATELET VOLUME 9.2 fL (7.2-11.7); MONO % 4.8 % (0.0-10.0); NEUT # 18.9 K/uL (1.8-7.0); NEUT % 91.2 % (50.0-75.0); NRBC % 0.3 % (0.0-2.0); PLATELET COUNT 181 K/uL (130-400); RBC 3.36 Mil/uL (4.40-5.90); WHITE BLOOD COUNT 20.8 K/uL (4.8-10.8)
[2018-07-23 22:47] LABS: CALCIUM 9.1 mg/dl (8.6-10.4)
[2018-07-23 23:24] LABS: INR 1.3; PROTHROMBIN TIME 13.7 SECONDS (9.7-12.2)
[2018-07-24] MEDS: (Novolin R) Insulin Human Regular 100 units/ml vial SC SCH ×11 (00:09→12:14)
[2018-07-24] MEDS: Albuterol-Ipratrop 3 mg / 0.5 (3 ml) UD INH SCH ×4 (00:57→12:53)
[2018-07-24 01:42] LABS: BANDS 5 % (0-2); LYMPHOCYTE 2 % (20-40); MONOCYTE 5 % (0-10); NEUTROPHIL 88 % (50-75); PLATELET ESTIMATE NORMAL (NORMAL); TOTAL CELLS COUNTED 100
[2018-07-24] MEDS ORDERED: Acetaminophen IV 1,000 MG in Premixed IV 1 EA IV ONE (02:08)
[2018-07-24] MEDS: DOPamine 400mg/250ml D5W 400 MG/250 ML BAG IV PRN ×4 (03:53→16:42)
[2018-07-24 06:00] LABS: BASO % 0.1 % (0.0-2.0); HEMOGLOBIN 9.6 g/dL (12.0-18.0); LYMPH # 1.4 K/uL (1.0-4.3); LYMPH % 7.2 % (20.0-40.0); MEAN CELL VOLUME 89.9 fL (80.0-94.0); MEAN CORPUSCULAR HEMOGLOBIN 28.1 pg (27.0-31.0); MEAN CORPUSCULAR HGB CONC 31.2 g/dL (33.0-37.0); NEUT # 17.2 K/uL (1.8-7.0); NEUT % 87.7 % (50.0-75.0); NRBC % 0.3 % (0.0-2.0); PLATELET COUNT 183 K/uL (130-400); RBC 3.42 Mil/uL (4.40-5.90); WHITE BLOOD COUNT 19.6 K/uL (4.8-10.8)
[2018-07-24 06:18] LABS: ARTERIAL BLOOD GAS HCO3 14.8 mmol/L (21-28); ARTERIAL BLOOD GAS O2 SAT 99.7 % (95-98); ARTERIAL BLOOD GAS PCO2 36 mm/Hg (35-45); ARTERIAL BLOOD GAS PO2 290 mm/Hg (80-100); ARTERIAL BLOOD GAS TCO2 15.2 mmol/L (22-28)
[2018-07-24 06:26] LABS: IRON 46 ug/dL (49-181)
[2018-07-24 06:36] LABS: % IRON SATURATION 22 (20-55); ALB/GLOB RATIO 1.5 (1.0-2.1); ALBUMIN 4.4 g/dL (3.5-5.0); CALCIUM 8.8 mg/dl (8.6-10.4); TOTAL IRON BINDING CAPACITY 210 ug/dL (250-450)
[2018-07-24] MEDS ORDERED: Vasopressin 40 UNITS in Dextrose 5% In Water 40 ML IV SCH (07:00)
[2018-07-24] MEDS ORDERED: Sodium Bicarbonate (8.4%) 50 mEq Vial IVP ONE ×3 (07:05→10:30)
[2018-07-24] MEDS ORDERED: Sodium Bicarbonate 8.4% 150 MEQ in Dextrose 5% In Water 1,000 ML IV SCH (07:15)
[2018-07-24 07:34] LABS: FOLATE 6.3 ng/mL
[2018-07-24] MEDS: White Petrolatum/Mineral Oil Ophth Oint(3.5 gm) OU SCH ×2 (08:00→12:13)
--- NOTE | 2018-07-24 08:04 | CP.CCUPN ---
CCU Subjective - Physician Review Subjective (Free Text): ICU Progress Note for Dr. Pisano Pt seen and examined at bedside this am. Currently intubated, unable to obtain HPI or ROS due to current pt status. On pressor therapy, hypotensive and bradycardic overnight. S/p cardiac arrest with ROSC achieved overnight. Repeat cardiac arrest this am with ROSC achieved, please see later progress note for detailed hx. CCU Objective - Vital Signs / Intake & Output Vital Signs (Last 4 hours): Vital Signs Temp Pulse Resp BP Pulse Ox 07/24/18 07:09 86 16 178/97 H 100 07/24/18 07:00 94 F L 68 24 58/34 L 07/24/18 06:59 58 L 25 H 58/34 L 07/24/18 06:52 55 L 24 48/28 L 07/24/18 06:18 69 15 129/95 H 07/24/18 06:00 93.5 F L 75 17 129/95 H 07/24/18 05:04 77 16 132/81 100 07/24/18 05:00 93.2 F L 77 15 132/81 100 07/24/18 04:35 79 15 132/85 100 Intake and Output (Last 8hrs): Intake & Output 07/23/18 07/24/18 07/24/18 22:59 06:59 14:59 Intake Total 1880.6 1348.3 1289.4 Output Total 106 400 0 Balance 1774.6 948.3 1289.4 Weight 206 lb 12.8 oz Intake: IV 581 615 106 Intake, IV Amount 1299.6 733.3 1183.4 Left Distal Port Femoral 50 100 1000 Left Medial Port Femoral 314.1 355.7 70.4 Left Proximal Port 935.5 277.6 113 Femoral Output: Gastric Amount 400 Stomach 400 Urine 106 0 0 Urethral (Herron) 51 0 0 Other: # Bowel Movements 0 - Physical Exam Head: Positive for: Atraumatic, Normocephalic Pupils: Positive for: Non-Reactive Mouth: Positive for: Moist Mucous Membranes Respiratory/Chest: Positive for: Clear to Auscultation Cardiovascular: Positive for: Regular Rate and Rhythm. Negative for: Murmurs, Rub, Gallop Abdomen: Positive for: Normal Bowel Sounds. Negative for: Tenderness, Dis tention, Mass/Organomegaly Upper Extremity: Positive for: Normal Inspection, Normal ROM, NORMAL PULSES, Neurovascularly Intact, Capillary Refill < 2s Lower Extremity: Positive for: Normal Inspection, NORMAL PULSES, Neurovascularly Intact, Capillary Refill < 2 s Neurological: Positive for: Other (intubated) Skin: Positive for: Warm, Dry Psychiatric: Positive for: Other (intubated) - Medications Active Medications: Active Medications Generic Name Dose Route Start Last Admin Trade Name Freq PRN Reason Stop Dose Admin Albuterol/Ipratropium 3 ml 07/23/18 16:00 07/24/18 07:44 Duoneb 3 Mg/0.5 Mg (3 Ml) Ud INH 3 ml RQ4 SANDI Administration Artificial Tears 1 gm 07/24/18 07:30 Lacri-Lube OU Q4H SANDI Calcium Acetate 667 mg 07/24/18 10:00 Phoslo PO DAILY SANDI Ezetimibe 10 mg 07/23/18 22:00 07/23/18 21:44 Zetia PO Not Given HS SANDI Famotidine 20 mg 07/24/18 10:00 Pepcid PO DAILY SANDI Gabapentin 100 mg 07/23/18 22:00 07/23/18 21:44 Neurontin PO Not Given HS SANDI Heparin Sodium (Porcine) 5,000 units 07/23/18 22:00 07/24/18 05:48 Heparin SC 5,000 units Q8 SANDI Administration Home Med 1 tab 07/24/18 10:00 Patient's Own Medication PO DAILY SANDI Norepinephrine Bitartrate 4 mg 254 mls @ 15.24 mls/hr 07/23/18 16:42 07/24/18 07:30 / Sodium Chloride IV 20 mcg/min .[id number] PRN 76.2 mls/hr TITRATE PER MD ORDER Titration Protocol 4 MCG/MIN Dopamine HCl/Dextrose 400 mg in 250 mls @ 7.032 mls/hr 07/23/18 17:05 07/24/18 07:00 Dopamine 400mg/250ml D5w IV 20 mcg/kg/min .Q24H PRN 70.319 mls/hr TITRATE PER MD ORDER Titration Protocol 2 MCG/KG/MIN Vasopressin 40 units/ Dextrose 42 mls @ 0.63 mls/hr 07/24/18 07:00 IV .Q24H SANDI Protocol 0.01 UNITS/MIN Sodium Bicarbonate 150 meq/ 1,150 mls @ 60 mls/hr 07/24/18 07:15 Dextrose IV .[id number] [facility] Potassium Chloride 20 meq in 100 mls @ 50 mls/hr 07/24/18 08:03 Potassium Chloride 20 Meq/100 Ml IVPB 07/24/18 10:02 ONCE ONE Insulin Human Regular 0 unit 07/23/18 22:12 07/24/18 07:15 Novolin R SC Not Given Q1H [facility] Protocol Meperidine HCl 25 mg 07/23/18 15:06 Demerol IVP Q30M PRN Rigors Potassium Chloride 20 meq 07/24/18 10:00 Potassium Chloride Oral Soln PO DAILY [facility] Raltegravir 400 mg 07/23/18 22:00 Isentress PO Q12H [facility] Protocol - Patient Studies Lab Studies: Lab Studies 07/24/18 07/24/18 07/24/18 Range/Units 05:51 05:51 05:51 WBC 19.6 H (4.8-10.8) K/uL RBC 3.42 L (4.40-5.90) Mil/uL Hgb 9.6 L (12.0-18.0) g/dL Hct 30.7 L (35.0-51.0) % MCV 89.9 D (80.0-94.0) fL MCH 28.1 (27.0-31.0) pg MCHC 31.2 L (33.0-37.0) g/dL RDW 17.0 H (11.5-14.5) % Plt Count 183 (130-400) K/uL MPV 9.0 (7.2-11.7) fL Neut % (Auto) 87.7 H (50.0-75.0) % Lymph % (Auto) 7.2 L (20.0-40.0) % [place] % (Auto) 5.0 (0.0-10.0) % Eos % (Auto) 0.0 (0.0-4.0) % Baso % (Auto) 0.1 (0.0-2.0) % Neut # (Auto) 17.2 H (1.8-7.0) K/uL Lymph # (Auto) 1.4 (1.0-4.3) K/uL [place] # (Auto) 1.0 H (0.0-0.8) K/uL Eos # (Auto) 0.0 (0.0-0.7) K/uL Baso # (Auto) 0.0 (0.0-0.2) K/uL Neutrophils % (Manual) (50-75) % Band Neutrophils % (0-2) % Lymphocytes % (Manual) (20-40) % Monocytes % (Manual) (0-10) % Differential Comment Platelet Estimate (NORMAL) Polychromasia Hypochromasia (manual) Anisocytosis (manual) Ovalocytes Retic Count 1.8 H (0.5-1.5) % PT (9.7-12.2) SECONDS INR APTT 41 H (21-34) SECONDS Puncture Site pCO2 (35-45) mm/Hg pO2 (80-100) mm/Hg HCO3 (21-28) mmol/L ABG pH (7.35-7.45) ABG Total CO2 (22-28) mmol/L ABG O2 Saturation (95-98) % ABG Base Excess (-2.0-3.0) mmol/L Cruz Test ABG Potassium (3.6-5.2) mmol/L A-a O2 Difference mm/Hg Respiratory Index Glucose (75-110) mg/dl Lactate (0.7-2.1) mmol/L Vent Mode Mechanical Rate FiO2 % Tidal Volume PEEP Crit Value Called To Crit Value Called By Crit Value Read Back Blood Gas Notified Time Sodium (132-148) mmol/L Potassium (3.6-5.2) mmol/L Chloride (98-107) mmol/L Carbon Dioxide (22-30) mmol/L Anion Gap (10-20) BUN (9-20) mg/dL Creatinine (0.8-1.5) mg/dL Est GFR ( Amer) Est GFR (Non-Af Amer) POC Glucose (mg/dL) (65-110) mg/dL Random Glucose (75-110) mg/dL Calcium (8.6-10.4) mg/dl Phosphorus (2.5-4.5) mg/dL Magnesium (1.6-2.3) mg/dL Iron (49-181) ug/dL TIBC (250-450) ug/dL % Saturation (20-55) Transferrin (206-381) mg/dL Total Bilirubin (0.2-1.3) mg/dL AST (17-59) U/L ALT (21-72) U/L Alkaline Phosphatase (38-126) U/L Total Creatine Kinase (55-170) U/L CK-MB (Mass) (0.0-3.38) ng/mL Troponin I (0.00-0.120) ng/mL NT-Pro-B Natriuret Pep (0-900) pg/mL Total Protein (6.3-8.3) g/dL Albumin (3.5-5.0) g/dL Globulin (2.2-3.9) gm/dL Albumin/Globulin Ratio (1.0-2.1) Triglycerides (0-149) mg/dL Cholesterol (0-199) mg/dL LDL Cholesterol Direct (0-129) mg/dL HDL Cholesterol (30-70) mg/dL Vitamin B12 (239-931) pg/mL Folate ng/mL Arterial Blood Potassium (3.6-5.2) mmol/L Urine Color (YELLOW) Urine Clarity (Clear) Urine pH (5.0-8.0) Ur Specific [place] (1.003-1.030) Urine Protein (NEGATIVE) mg/dL Urine Glucose (UA) (Normal) mg/dL Urine Ketones (NEGATIVE) mg/dL Urine Blood (NEGATIVE) Urine Nitrate (NEGATIVE) Urine Bilirubin (NEGATIVE) Urine Urobilinogen (0.2-1.0) mg/dL Ur Leukocyte Esterase (Negative) Michelle/uL Urine WBC (Auto) (0-5) /hpf Urine RBC (Auto) (0-3) /hpf Ur Squamous Epith Cells (0-5) /hpf Urine Bacteria (<OCC) Blood Type Antibody Screen 07/24/18 07/24/18 07/24/18 Range/Units 05:50 05:50 05:50 WBC (4.8-10.8) K/uL RBC (4.40-5.90) Mil/uL Hgb (12.0-18.0) g/dL Hct (35.0-51.0) % MCV (80.0-94.0) fL MCH (27.0-31.0) pg MCHC (33.0-37.0) g/dL RDW (11.5-14.5) % Plt Count (130-400) K/uL MPV (7.2-11.7) fL Neut % (Auto) (50.0-75.0) % Lymph % (Auto) (20.0-40.0) % [place] % (Auto) (0.0-10.0) % Eos % (Auto) (0.0-4.0) % Baso % (Auto) (0.0-2.0) % Neut # (Auto) (1.8-7.0) K/uL Lymph # (Auto) (1.0-4.3) K/uL [place] # (Auto) (0.0-0.8) K/uL Eos # (Auto) (0.0-0.7) K/uL Baso # (Auto) (0.0-0.2) K/uL Neutrophils % (Manual) (50-75) % Band Neutrophils % (0-2) % Lymphocytes % (Manual) (20-40) % Monocytes % (Manual) (0-10) % Differential Comment Platelet Estimate (NORMAL) Polychromasia Hypochromasia (manual) Anisocytosis (manual) Ovalocytes Retic Count (0.5-1.5) % PT (9.7-12.2) SECONDS INR APTT (21-34) SECONDS Puncture Site pCO2 (35-45) mm/Hg pO2 (80-100) mm/Hg HCO3 (21-28) mmol/L ABG pH (7.35-7.45) ABG Total CO2 (22-28) mmol/L ABG O2 Saturation (95-98) % ABG Base Excess (-2.0-3.0) mmol/L Cruz Test ABG Potassium (3.6-5.2) mmol/L A-a O2 Difference mm/Hg Respiratory Index Glucose (75-110) mg/dl Lactate (0.7-2.1) mmol/L Vent Mode Mechanical Rate FiO2 % Tidal Volume PEEP Crit Value Called To Crit Value Called By Crit Value Read Back Blood Gas Notified Time Sodium 140 (132-148) mmol/L Potassium 3.5 L (3.6-5.2) mmol/L Chloride 91 L (98-107) mmol/L Carbon Dioxide 27 (22-30) mmol/L Anion Gap 25 H (10-20) BUN 26 H (9-20) mg/dL Creatinine 8.9 H* (0.8-1.5) mg/dL Est GFR ( Amer) 7 Est GFR (Non-Af Amer) 6 POC Glucose (mg/dL) (65-110) mg/dL Random Glucose 134 H D (75-110) mg/dL Calcium 8.8 (8.6-10.4) mg/dl Phosphorus 5.7 H (2.5-4.5) mg/dL Magnesium 2.4 H (1.6-2.3) mg/dL Iron 46 L (49-181) ug/dL TIBC 210 L (250-450) ug/dL % Saturation 22 (20-55) Transferrin 150.39 L (206-381) mg/dL Total Bilirubin 0.5 (0.2-1.3) mg/dL AST 590 H (17-59) U/L ALT 377 H (21-72) U/L Alkaline Phosphatase 64 (38-126) U/L Total Creatine Kinase (55-170) U/L CK-MB (Mass) (0.0-3.38) ng/mL Troponin I (0.00-0.120) ng/mL NT-Pro-B Natriuret Pep (0-900) pg/mL Total Protein 7.3 (6.3-8.3) g/dL Albumin 4.4 (3.5-5.0) g/dL Globulin 2.9 (2.2-3.9) gm/dL Albumin/Globulin Ratio 1.5 (1.0-2.1) Triglycerides 274 H (0-149) mg/dL Cholesterol 142 (0-199) mg/dL LDL Cholesterol Direct 63 (0-129) mg/dL HDL Cholesterol 23 L (30-70) mg/dL Vitamin B12 781 (239-931) pg/mL Folate 6.3 ng/mL Arterial Blood Potassium (3.6-5.2) mmol/L Urine Color (YELLOW) Urine Clarity (Clear) Urine pH (5.0-8.0) Ur Specific [place] (1.003-1.030) Urine Protein (NEGATIVE) mg/dL Urine Glucose (UA) (Normal) mg/dL Urine Ketones (NEGATIVE) mg/dL Urine Blood (NEGATIVE) Urine Nitrate (NEGATIVE) Urine Bilirubin (NEGATIVE) Urine Urobilinogen (0.2-1.0) mg/dL Ur Leukocyte Esterase (Negative) Michelle/uL Urine WBC (Auto) (0-5) /hpf Urine RBC (Auto) (0-3) /hpf Ur Squamous Epith Cells (0-5) /hpf Urine Bacteria (<OCC) Blood Type Antibody Screen 07/24/18 07/24/18 07/24/18 Range/Units 05:13 04:40 03:47 WBC (4.8-10.8) K/uL RBC (4.40-5.90) Mil/uL Hgb (12.0-18.0) g/dL Hct (35.0-51.0) % MCV (80.0-94.0) fL MCH (27.0-31.0) pg MCHC (33.0-37.0) g/dL RDW (11.5-14.5) % Plt Count (130-400) K/uL MPV (7.2-11.7) fL Neut % (Auto) (50.0-75.0) % Lymph % (Auto) (20.0-40.0) % [place] % (Auto) (0.0-10.0) % Eos % (Auto) (0.0-4.0) % Baso % (Auto) (0.0-2.0) % Neut # (Auto) (1.8-7.0) K/uL Lymph # (Auto) (1.0-4.3) K/uL [place] # (Auto) (0.0-0.8) K/uL Eos # (Auto) (0.0-0.7) K/uL Baso # (Auto) (0.0-0.2) K/uL Neutrophils % (Manual) (50-75) % Band Neutrophils % (0-2) % Lymphocytes % (Manual) (20-40) % Monocytes % (Manual) (0-10) % Differential Comment Platelet Estimate (NORMAL) Polychromasia Hypochromasia (manual) Anisocytosis (manual) Ovalocytes Retic Count (0.5-1.5) % PT (9.7-12.2) SECONDS INR APTT (21-34) SECONDS Puncture Site R brac pCO2 36 (35-45) mm/Hg pO2 290 H (80-100) mm/Hg HCO3 14.8 L (21-28) mmol/L ABG pH 7.20 L (7.35-7.45) ABG Total CO2 15.2 L (22-28) mmol/L ABG O2 Saturation 99.7 H (95-98) % ABG Base Excess -13.1 L (-2.0-3.0) mmol/L Cruz Test Na ABG Potassium 4.1 (3.6-5.2) mmol/L A-a O2 Difference 164.0 mm/Hg Respiratory Index 0.6 Glucose 131 H (75-110) mg/dl Lactate 17.6 H* (0.7-2.1) mmol/L Vent Mode Prvc Mechanical Rate 24 FiO2 70.0 % Tidal Volume 500 PEEP 5 Crit Value Called To Polly registered nurse cardiovascular icu Crit Value Called By Grazyna hernandez rt Crit Value Read Back Y Blood Gas Notified Time 615 Sodium 141.0 (132-148) mmol/L Potassium (3.6-5.2) mmol/L Chloride 99.0 (98-107) mmol/L Carbon Dioxide (22-30) mmol/L Anion Gap (10-20) BUN (9-20) mg/dL Creatinine (0.8-1.5) mg/dL Est GFR ( Amer) Est GFR (Non-Af Amer) POC Glucose (mg/dL) 151 H 199 H (65-110) mg/dL Random Glucose (75-110) mg/dL Calcium (8.6-10.4) mg/dl Phosphorus (2.5-4.5) mg/dL Magnesium (1.6-2.3) mg/dL Iron (49-181) ug/dL TIBC (250-450) ug/dL % Saturation (20-55) Transferrin (206-381) mg/dL Total Bilirubin (0.2-1.3) mg/dL AST (17-59) U/L ALT (21-72) U/L Alkaline Phosphatase (38-126) U/L Total Creatine Kinase (55-170) U/L CK-MB (Mass) (0.0-3.38) ng/mL Troponin I (0.00-0.120) ng/mL NT-Pro-B Natriuret Pep (0-900) pg/mL Total Protein (6.3-8.3) g/dL Albumin (3.5-5.0) g/dL Globulin (2.2-3.9) gm/dL Albumin/Globulin Ratio (1.0-2.1) Triglycerides (0-149) mg/dL Cholesterol (0-199) mg/dL LDL Cholesterol Direct (0-129) mg/dL HDL Cholesterol (30-70) mg/dL Vitamin B12 (239-931) pg/mL Folate ng/mL Arterial Blood Potassium 4.1 (3.6-5.2) mmol/L Urine Color (YELLOW) Urine Clarity (Clear) Urine pH (5.0-8.0) Ur Specific [place] (1.003-1.030) Urine Protein (NEGATIVE) mg/dL Urine Glucose (UA) (Normal) mg/dL Urine Ketones (NEGATIVE) mg/dL Urine Blood (NEGATIVE) Urine Nitrate (NEGATIVE) Urine Bilirubin (NEGATIVE) Urine Urobilinogen (0.2-1.0) mg/dL Ur Leukocyte Esterase (Negative) Michelle/uL Urine WBC (Auto) (0-5) /hpf Urine RBC (Auto) (0-3) /hpf Ur Squamous Epith Cells (0-5) /hpf Urine Bacteria (<OCC) Blood Type Antibody Screen 07/24/18 07/24/18 07/24/18 Range/Units 02:20 01:13 00:04 WBC (4.8-10.8) K/uL RBC (4.40-5.90) Mil/uL Hgb (12.0-18.0) g/dL Hct (35.0-51.0) % MCV (80.0-94.0) fL MCH (27.0-31.0) pg MCHC (33.0-37.0) g/dL RDW (11.5-14.5) % Plt Count (130-400) K/uL MPV (7.2-11.7) fL Neut % (Auto) (50.0-75.0) % Lymph % (Auto) (20.0-40.0) % [place] % (Auto) (0.0-10.0) % Eos % (Auto) (0.0-4.0) % Baso % (Auto) (0.0-2.0) % Neut # (Auto) (1.8-7.0) K/uL Lymph # (Auto) (1.0-4.3) K/uL [place] # (Auto) (0.0-0.8) K/uL Eos # (Auto) (0.0-0.7) K/uL Baso # (Auto) (0.0-0.2) K/uL Neutrophils % (Manual) (50-75) % Band Neutrophils % (0-2) % Lymphocytes % (Manual) (20-40) % Monocytes % (Manual) (0-10) % Differential Comment Platelet Estimate (NORMAL) Polychromasia Hypochromasia (manual) Anisocytosis (manual) Ovalocytes Retic Count (0.5-1.5) % PT (9.7-12.2) SECONDS INR APTT (21-34) SECONDS Puncture Site pCO2 (35-45) mm/Hg pO2 (80-100) mm/Hg HCO3 (21-28) mmol/L ABG pH (7.35-7.45) ABG Total CO2 (22-28) mmol/L ABG O2 Saturation (95-98) % ABG Base Excess (-2.0-3.0) mmol/L Cruz Test ABG Potassium (3.6-5.2) mmol/L A-a O2 Difference mm/Hg Respiratory Index Glucose (75-110) mg/dl Lactate (0.7-2.1) mmol/L Vent Mode Mechanical Rate FiO2 % Tidal Volume PEEP Crit Value Called To Crit Value Called By Crit Value Read Back Blood Gas Notified Time Sodium (132-148) mmol/L Potassium (3.6-5.2) mmol/L Chloride (98-107) mmol/L Carbon Dioxide (22-30) mmol/L Anion Gap (10-20) BUN (9-20) mg/dL Creatinine (0.8-1.5) mg/dL Est GFR ( Amer) Est GFR (Non-Af Amer) POC Glucose (mg/dL) 231 H 253 H 260 H (65-110) mg/dL Random Glucose (75-110) mg/dL Calcium (8.6-10.4) mg/dl Phosphorus (2.5-4.5) mg/dL Magnesium (1.6-2.3) mg/dL Iron (49-181) ug/dL TIBC (250-450) ug/dL % Saturation (20-55) Transferrin (206-381) mg/dL Total Bilirubin (0.2-1.3) mg/dL AST (17-59) U/L ALT (21-72) U/L Alkaline Phosphatase (38-126) U/L Total Creatine Kinase (55-170) U/L CK-MB (Mass) (0.0-3.38) ng/mL Troponin I (0.00-0.120) ng/mL NT-Pro-B Natriuret Pep (0-900) pg/mL Total Protein (6.3-8.3) g/dL Albumin (3.5-5.0) g/dL Globulin (2.2-3.9) gm/dL Albumin/Globulin Ratio (1.0-2.1) Triglycerides (0-149) mg/dL Cholesterol (0-199) mg/dL LDL Cholesterol Direct (0-129) mg/dL HDL Cholesterol (30-70) mg/dL Vitamin B12 (239-931) pg/mL Folate ng/mL Arterial Blood Potassium (3.6-5.2) mmol/L Urine Color (YELLOW) Urine Clarity (Clear) Urine pH (5.0-8.0) Ur Specific [place] (1.003-1.030) Urine Protein (NEGATIVE) mg/dL Urine Glucose (UA) (Normal) mg/dL Urine Ketones (NEGATIVE) mg/dL Urine Blood (NEGATIVE) Urine Nitrate (NEGATIVE) Urine Bilirubin (NEGATIVE) Urine Urobilinogen (0.2-1.0) mg/dL Ur Leukocyte Esterase (Negative) Michelle/uL Urine WBC (Auto) (0-5) /hpf Urine RBC (Auto) (0-3) /hpf Ur Squamous Epith Cells (0-5) /hpf Urine Bacteria (<OCC) Blood Type Antibody Screen 07/23/18 07/23/18 07/23/18 Range/Units 22:15 22:15 22:15 WBC (4.8-10.8) K/uL RBC (4.40-5.90) Mil/uL Hgb (12.0-18.0) g/dL Hct (35.0-51.0) % MCV (80.0-94.0) fL MCH (27.0-31.0) pg MCHC (33.0-37.0) g/dL RDW (11.5-14.5) % Plt Count (130-400) K/uL MPV (7.2-11.7) fL Neut % (Auto) (50.0-75.0) % Lymph % (Auto) (20.0-40.0) % [place] % (Auto) (0.0-10.0) % Eos % (Auto) (0.0-4.0) % Baso % (Auto) (0.0-2.0) % Neut # (Auto) (1.8-7.0) K/uL Lymph # (Auto) (1.0-4.3) K/uL [place] # (Auto) (0.0-0.8) K/uL Eos # (Auto) (0.0-0.7) K/uL Baso # (Auto) (0.0-0.2) K/uL Neutrophils % (Manual) (50-75) % Band Neutrophils % (0-2) % Lymphocytes % (Manual) (20-40) % Monocytes % (Manual) (0-10) % Differential Comment Platelet Estimate (NORMAL) Polychromasia Hypochromasia (manual) Anisocytosis (manual) Ovalocytes Retic Count (0.5-1.5) % PT 13.7 H (9.7-12.2) SECONDS INR 1.3 APTT 40 H D (21-34) SECONDS Puncture Site pCO2 (35-45) mm/Hg pO2 (80-100) mm/Hg HCO3 (21-28) mmol/L ABG pH (7.35-7.45) ABG Total CO2 (22-28) mmol/L ABG O2 Saturation (95-98) % ABG Base Excess (-2.0-3.0) mmol/L Cruz Test ABG Potassium (3.6-5.2) mmol/L A-a O2 Difference mm/Hg Respiratory Index Glucose (75-110) mg/dl Lactate (0.7-2.1) mmol/L Vent Mode Mechanical Rate FiO2 % Tidal Volume PEEP Crit Value Called To Crit Value Called By Crit Value Read Back Blood Gas Notified Time Sodium 140 (132-148) mmol/L Potassium 3.4 L (3.6-5.2) mmol/L Chloride 93 L (98-107) mmol/L Carbon Dioxide 19 L (22-30) mmol/L Anion Gap 30 H (10-20) BUN 21 H (9-20) mg/dL Creatinine 8.7 H* (0.8-1.5) mg/dL Est GFR ( Amer) 8 Est GFR (Non-Af Amer) 6 POC Glucose (mg/dL) (65-110) mg/dL Random Glucose 240 H (75-110) mg/dL Calcium 9.1 (8.6-10.4) mg/dl Phosphorus 6.9 H (2.5-4.5) mg/dL Magnesium 2.6 H (1.6-2.3) mg/dL Iron (49-181) ug/dL TIBC (250-450) ug/dL % Saturation (20-55) Transferrin (206-381) mg/dL Total Bilirubin (0.2-1.3) mg/dL AST (17-59) U/L ALT (21-72) U/L Alkaline Phosphatase (38-126) U/L Total Creatine Kinase 5933 H (55-170) U/L CK-MB (Mass) 168 H (0.0-3.38) ng/mL Troponin I 107.0000 H* (0.00-0.120) ng/mL NT-Pro-B Natriuret Pep (0-900) pg/mL Total Protein (6.3-8.3) g/dL Albumin (3.5-5.0) g/dL Globulin (2.2-3.9) gm/dL Albumin/Globulin Ratio (1.0-2.1) Triglycerides (0-149) mg/dL Cholesterol (0-199) mg/dL LDL Cholesterol Direct (0-129) mg/dL HDL Cholesterol (30-70) mg/dL Vitamin B12 (239-931) pg/mL Folate ng/mL Arterial Blood Potassium (3.6-5.2) mmol/L Urine Color (YELLOW) Urine Clarity (Clear) Urine pH (5.0-8.0) Ur Specific [place] (1.003-1.030) Urine Protein (NEGATIVE) mg/dL Urine Glucose (UA) (Normal) mg/dL Urine Ketones (NEGATIVE) mg/dL Urine Blood (NEGATIVE) Urine Nitrate (NEGATIVE) Urine Bilirubin (NEGATIVE) Urine Urobilinogen (0.2-1.0) mg/dL Ur Leukocyte Esterase (Negative) Michelle/uL Urine WBC (Auto) (0-5) /hpf Urine RBC (Auto) (0-3) /hpf Ur Squamous Epith Cells (0-5) /hpf Urine Bacteria (<OCC) Blood Type Antibody Screen 07/23/18 07/23/18 07/23/18 Range/Units 22:15 19:30 16:40 WBC 20.8 H (4.8-10.8) K/uL RBC 3.36 L (4.40-5.90) Mil/uL Hgb 9.5 L (12.0-18.0) g/dL Hct 31.0 L (35.0-51.0) % MCV 92.4 D (80.0-94.0) fL MCH 28.2 (27.0-31.0) pg MCHC 30.6 L (33.0-37.0) g/dL RDW 17.0 H (11.5-14.5) % Plt Count 181 (130-400) K/uL MPV 9.2 (7.2-11.7) fL Neut % (Auto) 91.2 H (50.0-75.0) % Lymph % (Auto) 3.8 L (20.0-40.0) % [place] % (Auto) 4.8 (0.0-10.0) % Eos % (Auto) 0.1 (0.0-4.0) % Baso % (Auto) 0.1 (0.0-2.0) % Neut # (Auto) 18.9 H (1.8-7.0) K/uL Lymph # (Auto) 0.8 L (1.0-4.3) K/uL [place] # (Auto) 1.0 H (0.0-0.8) K/uL Eos # (Auto) 0.0 (0.0-0.7) K/uL Baso # (Auto) 0.0 (0.0-0.2) K/uL Neutrophils % (Manual) 88 H (50-75) % Band Neutrophils % 5 H (0-2) % Lymphocytes % (Manual) 2 L (20-40) % Monocytes % (Manual) 5 (0-10) % Differential Comment Platelet Estimate Normal (NORMAL) Polychromasia Hypochromasia (manual) Anisocytosis (manual) Ovalocytes Retic Count (0.5-1.5) % PT (9.7-12.2) SECONDS INR APTT (21-34) SECONDS Puncture Site Rba pCO2 43 (35-45) mm/Hg pO2 285 H (80-100) mm/Hg HCO3 15.3 L (21-28) mmol/L ABG pH 7.17 L* (7.35-7.45) ABG Total CO2 17.0 L (22-28) mmol/L ABG O2 Saturation 99.5 H (95-98) % ABG Base Excess -12.4 L (-2.0-3.0) mmol/L Cruz Test Pos ABG Potassium 3.7 (3.6-5.2) mmol/L A-a O2 Difference 374.0 mm/Hg Respiratory Index 1.3 Glucose 247 H (75-110) mg/dl Lactate 15.6 H* (0.7-2.1) mmol/L Vent Mode Prvc Mechanical Rate 20 FiO2 100.0 % Tidal Volume 500 PEEP 5 Crit Value Called To Dr nuñez Crit Value Called By [facility] Crit Value Read Back Y Blood Gas Notified Time 1934 Sodium 142.0 (132-148) mmol/L Potassium (3.6-5.2) mmol/L Chloride 100.0 (98-107) mmol/L Carbon Dioxide (22-30) mmol/L Anion Gap (10-20) BUN (9-20) mg/dL Creatinine (0.8-1.5) mg/dL Est GFR ( Amer) Est GFR (Non-Af Amer) POC Glucose (mg/dL) (65-110) mg/dL Random Glucose (75-110) mg/dL Calcium (8.6-10.4) mg/dl Phosphorus (2.5-4.5) mg/dL Magnesium (1.6-2.3) mg/dL Iron (49-181) ug/dL TIBC (250-450) ug/dL % Saturation (20-55) Transferrin (206-381) mg/dL Total Bilirubin (0.2-1.3) mg/dL AST (17-59) U/L ALT (21-72) U/L Alkaline Phosphatase (38-126) U/L Total Creatine Kinase 3962 H (55-170) U/L CK-MB (Mass) 103 H (0.0-3.38) ng/mL Troponin I 61.5000 H* (0.00-0.120) ng/mL NT-Pro-B Natriuret Pep (0-900) pg/mL Total Protein (6.3-8.3) g/dL Albumin (3.5-5.0) g/dL Globulin (2.2-3.9) gm/dL Albumin/Globulin Ratio (1.0-2.1) Triglycerides (0-149) mg/dL Cholesterol (0-199) mg/dL LDL Cholesterol Direct (0-129) mg/dL HDL Cholesterol (30-70) mg/dL Vitamin B12 (239-931) pg/mL Folate ng/mL Arterial Blood Potassium 3.7 (3.6-5.2) mmol/L Urine Color (YELLOW) Urine Clarity (Clear) Urine pH (5.0-8.0) Ur Specific [place] (1.003-1.030) Urine Protein (NEGATIVE) mg/dL Urine Glucose (UA) (Normal) mg/dL Urine Ketones (NEGATIVE) mg/dL Urine Blood (NEGATIVE) Urine Nitrate (NEGATIVE) Urine Bilirubin (NEGATIVE) Urine Urobilinogen (0.2-1.0) mg/dL Ur Leukocyte Esterase (Negative) Michelle/uL Urine WBC (Auto) (0-5) /hpf Urine RBC (Auto) (0-3) /hpf Ur Squamous Epith Cells (0-5) /hpf Urine Bacteria (<OCC) Blood Type Antibody Screen 07/23/18 07/23/18 07/23/18 Range/Units 14:44 14:44 14:44 WBC 15.2 H (4.8-10.8) K/uL RBC 3.59 L (4.40-5.90) Mil/uL Hgb 10.1 L (12.0-18.0) g/dL Hct 32.1 L (35.0-51.0) % MCV 89.3 D (80.0-94.0) fL MCH 28.1 (27.0-31.0) pg MCHC 31.5 L (33.0-37.0) g/dL RDW 17.0 H (11.5-14.5) % Plt Count 178 (130-400) K/uL MPV 8.8 (7.2-11.7) fL Neut % (Auto) 84.4 H (50.0-75.0) % Lymph % (Auto) 7.4 L (20.0-40.0) % [place] % (Auto) 7.7 (0.0-10.0) % Eos % (Auto) 0.2 (0.0-4.0) % Baso % (Auto) 0.3 (0.0-2.0) % Neut # (Auto) 12.9 H (1.8-7.0) K/uL Lymph # (Auto) 1.1 (1.0-4.3) K/uL [place] # (Auto) 1.2 H (0.0-0.8) K/uL Eos # (Auto) 0.0 (0.0-0.7) K/uL Baso # (Auto) 0.0 (0.0-0.2) K/uL Neutrophils % (Manual) 88 H (50-75) % Band Neutrophils % 2 (0-2) % Lymphocytes % (Manual) 7 L (20-40) % Monocytes % (Manual) 3 (0-10) % Differential Comment Platelet Estimate Normal (NORMAL) Polychromasia Slight Hypochromasia (manual) Slight Anisocytosis (manual) Slight Ovalocytes Slight Retic Count (0.5-1.5) % PT (9.7-12.2) SECONDS INR APTT (21-34) SECONDS Puncture Site pCO2 (35-45) mm/Hg pO2 (80-100) mm/Hg HCO3 (21-28) mmol/L ABG pH (7.35-7.45) ABG Total CO2 (22-28) mmol/L ABG O2 Saturation (95-98) % ABG Base Excess (-2.0-3.0) mmol/L Cruz Test ABG Potassium (3.6-5.2) mmol/L A-a O2 Difference mm/Hg Respiratory Index Glucose (75-110) mg/dl Lactate (0.7-2.1) mmol/L Vent Mode Mechanical Rate FiO2 % Tidal Volume PEEP Crit Value Called To Crit Value Called By Crit Value Read Back Blood Gas Notified Time Sodium 138 (132-148) mmol/L Potassium 3.5 L (3.6-5.2) mmol/L Chloride 92 L (98-107) mmol/L Carbon Dioxide 25 (22-30) mmol/L Anion Gap 24 H (10-20) BUN 18 (9-20) mg/dL Creatinine 7.9 H* (0.8-1.5) mg/dL Est GFR ( Amer) 8 Est GFR (Non-Af Amer) 7 POC Glucose (mg/dL) (65-110) mg/dL Random Glucose 282 H (75-110) mg/dL Calcium 9.4 (8.6-10.4) mg/dl Phosphorus 4.0 (2.5-4.5) mg/dL Magnesium 2.4 H (1.6-2.3) mg/dL Iron (49-181) ug/dL TIBC (250-450) ug/dL % Saturation (20-55) Transferrin (206-381) mg/dL Total Bilirubin 0.7 (0.2-1.3) mg/dL AST 527 H D (17-59) U/L ALT 446 H D (21-72) U/L Alkaline Phosphatase 74 (38-126) U/L Total Creatine Kinase (55-170) U/L CK-MB (Mass) (0.0-3.38) ng/mL Troponin I (0.00-0.120) ng/mL NT-Pro-B Natriuret Pep (0-900) pg/mL Total Protein 7.5 (6.3-8.3) g/dL Albumin 4.5 (3.5-5.0) g/dL Globulin 3.0 (2.2-3.9) gm/dL Albumin/Globulin Ratio 1.5 (1.0-2.1) Triglycerides (0-149) mg/dL Cholesterol (0-199) mg/dL LDL Cholesterol Direct (0-129) mg/dL HDL Cholesterol (30-70) mg/dL Vitamin B12 (239-931) pg/mL Folate ng/mL Arterial Blood Potassium (3.6-5.2) mmol/L Urine Color Yellow (YELLOW) Urine Clarity Hazy (Clear) Urine pH 5.0 (5.0-8.0) Ur Specific [place] 1.023 (1.003-1.030) Urine Protein 1+ H (NEGATIVE) mg/dL Urine Glucose (UA) Normal (Normal) mg/dL Urine Ketones Negative (NEGATIVE) mg/dL Urine Blood Negative (NEGATIVE) Urine Nitrate Negative (NEGATIVE) Urine Bilirubin Negative (NEGATIVE) Urine Urobilinogen Normal (0.2-1.0) mg/dL Ur Leukocyte Esterase Neg (Negative) Michelle/uL Urine WBC (Auto) 2 (0-5) /hpf Urine RBC (Auto) 3 (0-3) /hpf Ur Squamous Epith Cells < 1 (0-5) /hpf Urine Bacteria Rare (<OCC) Blood Type Antibody Screen 07/23/18 07/23/18 07/23/18 Range/Units 11:50 11:26 11:04 WBC (4.8-10.8) K/uL RBC (4.40-5.90) Mil/uL Hgb (12.0-18.0) g/dL Hct (35.0-51.0) % MCV (80.0-94.0) fL MCH (27.0-31.0) pg MCHC (33.0-37.0) g/dL RDW (11.5-14.5) % Plt Count (130-400) K/uL MPV (7.2-11.7) fL Neut % (Auto) (50.0-75.0) % Lymph % (Auto) (20.0-40.0) % [place] % (Auto) (0.0-10.0) % Eos % (Auto) (0.0-4.0) % Baso % (Auto) (0.0-2.0) % Neut # (Auto) (1.8-7.0) K/uL Lymph # (Auto) (1.0-4.3) K/uL [place] # (Auto) (0.0-0.8) K/uL Eos # (Auto) (0.0-0.7) K/uL Baso # (Auto) (0.0-0.2) K/uL Neutrophils % (Manual) (50-75) % Band Neutrophils % (0-2) % Lymphocytes % (Manual) (20-40) % Monocytes % (Manual) (0-10) % Differential Comment Platelet Estimate (NORMAL) Polychromasia Hypochromasia (manual) Anisocytosis (manual) Ovalocytes Retic Count (0.5-1.5) % PT (9.7-12.2) SECONDS INR APTT (21-34) SECONDS Puncture Site Rb pCO2 23 L (35-45) mm/Hg pO2 267 H (80-100) mm/Hg HCO3 6.8 L* (21-28) mmol/L ABG pH 7.03 L* (7.35-7.45) ABG Total CO2 6.8 L (22-28) mmol/L ABG O2 Saturation 100.6 H (95-98) % ABG Base Excess -23.3 L (-2.0-3.0) mmol/L Cruz Test Na ABG Potassium 1.2 L* (3.6-5.2) mmol/L A-a O2 Difference 417.0 mm/Hg Respiratory Index 1.6 Glucose 111 H (75-110) mg/dl Lactate 6.0 H* (0.7-2.1) mmol/L Vent Mode Prvc Mechanical Rate 16 FiO2 100.0 % Tidal Volume 500 PEEP 5 Crit Value Called To Yaima hess do Crit Value Called By Lily ward consultant intern Crit Value Read Back Y Blood Gas Notified Time 1200 Sodium 158.0 H 141 (132-148) mmol/L Potassium 3.1 L (3.6-5.2) mmol/L Chloride 131.0 H 95 L (98-107) mmol/L Carbon Dioxide 16 L (22-30) mmol/L Anion Gap 32 H (10-20) BUN 13 (9-20) mg/dL Creatinine 6.6 H (0.8-1.5) mg/dL Est GFR ( Amer) 10 Est GFR (Non-Af Amer) 9 POC Glucose (mg/dL) (65-110) mg/dL Random Glucose 304 H (75-110) mg/dL Calcium 9.6 (8.6-10.4) mg/dl Phosphorus (2.5-4.5) mg/dL Magnesium (1.6-2.3) mg/dL Iron (49-181) ug/dL TIBC (250-450) ug/dL % Saturation (20-55) Transferrin (206-381) mg/dL Total Bilirubin 0.4 (0.2-1.3) mg/dL AST 266 H (17-59) U/L ALT 335 H (21-72) U/L Alkaline Phosphatase 49 (38-126) U/L Total Creatine Kinase 277 H (55-170) U/L CK-MB (Mass) 5.15 H (0.0-3.38) ng/mL Troponin I 0.2240 H* (0.00-0.120) ng/mL NT-Pro-B Natriuret Pep 92811 H (0-900) pg/mL Total Protein 6.4 (6.3-8.3) g/dL Albumin 3.9 (3.5-5.0) g/dL Globulin 2.4 (2.2-3.9) gm/dL Albumin/Globulin Ratio 1.6 (1.0-2.1) Triglycerides (0-149) mg/dL Cholesterol (0-199) mg/dL LDL Cholesterol Direct (0-129) mg/dL HDL Cholesterol (30-70) mg/dL Vitamin B12 (239-931) pg/mL Folate ng/mL Arterial Blood Potassium 1.2 L* (3.6-5.2) mmol/L Urine Color (YELLOW) Urine Clarity (Clear) Urine pH (5.0-8.0) Ur Specific [place] (1.003-1.030) Urine Protein (NEGATIVE) mg/dL Urine Glucose (UA) (Normal) mg/dL Urine Ketones (NEGATIVE) mg/dL Urine Blood (NEGATIVE) Urine Nitrate (NEGATIVE) Urine Bilirubin (NEGATIVE) Urine Urobilinogen (0.2-1.0) mg/dL Ur Leukocyte Esterase (Negative) Michelle/uL Urine WBC (Auto) (0-5) /hpf Urine RBC (Auto) (0-3) /hpf Ur Squamous Epith Cells (0-5) /hpf Urine Bacteria (<OCC) Blood Type A POSITIVE Antibody Screen Negative 07/23/18 07/23/18 Range/Units 11:04 11:04 WBC 23.3 H (4.8-10.8) K/uL RBC 3.46 L (4.40-5.90) Mil/uL Hgb 9.5 L (12.0-18.0) g/dL Hct 32.5 L (35.0-51.0) % MCV 93.8 (80.0-94.0) fL MCH 27.5 (27.0-31.0) pg MCHC 29.4 L (33.0-37.0) g/dL RDW 16.7 H (11.5-14.5) % Plt Count 99 L (130-400) K/uL MPV 8.3 (7.2-11.7) fL Neut % (Auto) 49.9 L (50.0-75.0) % Lymph % (Auto) 43.3 H (20.0-40.0) % [place] % (Auto) 4.9 (0.0-10.0) % Eos % (Auto) 1.5 (0.0-4.0) % Baso % (Auto) 0.4 (0.0-2.0) % Neut # (Auto) 11.6 H (1.8-7.0) K/uL Lymph # (Auto) 10.1 H (1.0-4.3) K/uL [place] # (Auto) 1.1 H (0.0-0.8) K/uL Eos # (Auto) 0.4 (0.0-0.7) K/uL Baso # (Auto) 0.1 (0.0-0.2) K/uL Neutrophils % (Manual) (50-75) % Band Neutrophils % (0-2) % Lymphocytes % (Manual) (20-40) % Monocytes % (Manual) (0-10) % Differential Comment Platelet Estimate (NORMAL) Polychromasia Hypochromasia (manual) Anisocytosis (manual) Ovalocytes Retic Count (0.5-1.5) % PT 12.5 H (9.7-12.2) SECONDS INR 1.1 APTT 45 H (21-34) SECONDS Puncture Site pCO2 (35-45) mm/Hg pO2 (80-100) mm/Hg HCO3 (21-28) mmol/L ABG pH (7.35-7.45) ABG Total CO2 (22-28) mmol/L ABG O2 Saturation (95-98) % ABG Base Excess (-2.0-3.0) mmol/L Cruz Test ABG Potassium (3.6-5.2) mmol/L A-a O2 Difference mm/Hg Respiratory Index Glucose (75-110) mg/dl Lactate (0.7-2.1) mmol/L Vent Mode Mechanical Rate FiO2 % Tidal Volume PEEP Crit Value Called To Crit Value Called By Crit Value Read Back Blood Gas Notified Time Sodium (132-148) mmol/L Potassium (3.6-5.2) mmol/L Chloride (98-107) mmol/L Carbon Dioxide (22-30) mmol/L Anion Gap (10-20) BUN (9-20) mg/dL Creatinine (0.8-1.5) mg/dL Est GFR ( Amer) Est GFR (Non-Af Amer) POC Glucose (mg/dL) (65-110) mg/dL Random Glucose (75-110) mg/dL Calcium (8.6-10.4) mg/dl Phosphorus (2.5-4.5) mg/dL Magnesium (1.6-2.3) mg/dL Iron (49-181) ug/dL TIBC (250-450) ug/dL % Saturation (20-55) Transferrin (206-381) mg/dL Total Bilirubin (0.2-1.3) mg/dL AST (17-59) U/L ALT (21-72) U/L Alkaline Phosphatase (38-126) U/L Total Creatine Kinase (55-170) U/L CK-MB (Mass) (0.0-3.38) ng/mL Troponin I (0.00-0.120) ng/mL NT-Pro-B Natriuret Pep (0-900) pg/mL Total Protein (6.3-8.3) g/dL Albumin (3.5-5.0) g/dL Globulin (2.2-3.9) gm/dL Albumin/Globulin Ratio (1.0-2.1) Triglycerides (0-149) mg/dL Cholesterol (0-199) mg/dL LDL Cholesterol Direct (0-129) mg/dL HDL Cholesterol (30-70) mg/dL Vitamin B12 (239-931) pg/mL Folate ng/mL Arterial Blood Potassium (3.6-5.2) mmol/L Urine Color (YELLOW) Urine Clarity (Clear) Urine pH (5.0-8.0) Ur Specific [place] (1.003-1.030) Urine Protein (NEGATIVE) mg/dL Urine Glucose (UA) (Normal) mg/dL Urine Ketones (NEGATIVE) mg/dL Urine Blood (NEGATIVE) Urine Nitrate (NEGATIVE) Urine Bilirubin (NEGATIVE) Urine Urobilinogen (0.2-1.0) mg/dL Ur Leukocyte Esterase (Negative) Michelle/uL Urine WBC (Auto) (0-5) /hpf Urine RBC (Auto) (0-3) /hpf Ur Squamous Epith Cells (0-5) /hpf Urine Bacteria (<OCC) Blood Type Antibody Screen Laboratory Results - last 24 hr 07/23/18 07/23/18 07/23/18 11:04 11:04 11:04 WBC 23.3 H RBC 3.46 L Hgb 9.5 L Hct 32.5 L MCV 93.8 MCH 27.5 MCHC 29.4 L RDW 16.7 H Plt Count 99 L MPV 8.3 Neut % (Auto) 49.9 L Lymph % (Auto) 43.3 H [place] % (Auto) 4.9 Eos % (Auto) 1.5 Baso % (Auto) 0.4 Neut # (Auto) 11.6 H Lymph # (Auto) 10.1 H [place] # (Auto) 1.1 H Eos # (Auto) 0.4 Baso # (Auto) 0.1 Neutrophils % (Manual) Band Neutrophils % Lymphocytes % (Manual) Monocytes % (Manual) Differential Comment Platelet Estimate Polychromasia Hypochromasia (manual) Anisocytosis (manual) Ovalocytes Retic Count PT 12.5 H INR 1.1 APTT 45 H Puncture Site pCO2 pO2 HCO3 ABG pH ABG Total CO2 ABG O2 Saturation ABG Base Excess Cruz Test ABG Potassium A-a O2 Difference Respiratory Index Glucose Lactate Vent Mode Mechanical Rate FiO2 Tidal Volume PEEP Crit Value Called To Crit Value Called By Crit Value Read Back Blood Gas Notified Time Sodium 141 Potassium 3.1 L Chloride 95 L Carbon Dioxide 16 L Anion Gap 32 H BUN 13 Creatinine 6.6 H Est GFR ( Amer) 10 Est GFR (Non-Af Amer) 9 POC Glucose (mg/dL) Random Glucose 304 H Calcium 9.6 Phosphorus Magnesium Iron TIBC % Saturation Transferrin Total Bilirubin 0.4 AST 266 H ALT 335 H Alkaline Phosphatase 49 Total Creatine Kinase 277 H CK-MB (Mass) 5.15 H Troponin I 0.2240 H* NT-Pro-B Natriuret Pep 56587 H Total Protein 6.4 Albumin 3.9 Globulin 2.4 Albumin/Globulin Ratio 1.6 Triglycerides Cholesterol LDL Cholesterol Direct HDL Cholesterol Vitamin B12 Folate Arterial Blood Potassium Urine Color Urine Clarity Urine pH Ur Specific [place] Urine Protein Urine Glucose (UA) Urine Ketones Urine Blood Urine Nitrate Urine Bilirubin Urine Urobilinogen Ur Leukocyte Esterase Urine WBC (Auto) Urine RBC (Auto) Ur Squamous Epith Cells Urine Bacteria Blood Type Antibody Screen 07/23/18 07/23/18 07/23/18 11:26 11:50 14:44 WBC 15.2 H RBC 3.59 L Hgb 10.1 L Hct 32.1 L MCV 89.3 D MCH 28.1 MCHC 31.5 L RDW 17.0 H Plt Count 178 MPV 8.8 Neut % (Auto) 84.4 H Lymph % (Auto) 7.4 L [place] % (Auto) 7.7 Eos % (Auto) 0.2 Baso % (Auto) 0.3 Neut # (Auto) 12.9 H Lymph # (Auto) 1.1 [place] # (Auto) 1.2 H Eos # (Auto) 0.0 Baso # (Auto) 0.0 Neutrophils % (Manual) 88 H Band Neutrophils % 2 Lymphocytes % (Manual) 7 L Monocytes % (Manual) 3 Differential Comment Platelet Estimate Normal Polychromasia Slight Hypochromasia (manual) Slight Anisocytosis (manual) Slight Ovalocytes Slight Retic Count PT INR APTT Puncture Site Rb pCO2 23 L pO2 267 H HCO3 6.8 L* ABG pH 7.03 L* ABG Total CO2 6.8 L ABG O2 Saturation 100.6 H ABG Base Excess -23.3 L Cruz Test Na ABG Potassium 1.2 L* A-a O2 Difference 417.0 Respiratory Index 1.6 Glucose 111 H Lactate 6.0 H* Vent Mode Prvc Mechanical Rate 16 FiO2 100.0 Tidal Volume 500 PEEP 5 Crit Value Called To T deshawn do Crit Value Called By Lily ward consultant intern Crit Value Read Back Y Blood Gas Notified Time 1200 Sodium 158.0 H Potassium Chloride 131.0 H Carbon Dioxide Anion Gap BUN Creatinine Est GFR ( Amer) Est GFR (Non-Af Amer) POC Glucose (mg/dL) Random Glucose Calcium Phosphorus Magnesium Iron TIBC % Saturation Transferrin Total Bilirubin AST ALT Alkaline Phosphatase Total Creatine Kinase CK-MB (Mass) Troponin I NT-Pro-B Natriuret Pep Total Protein Albumin Globulin Albumin/Globulin Ratio Triglycerides Cholesterol LDL Cholesterol Direct HDL Cholesterol Vitamin B12 Folate Arterial Blood Potassium 1.2 L* Urine Color Urine Clarity Urine pH Ur Specific [place] Urine Protein Urine Glucose (UA) Urine Ketones Urine Blood Urine Nitrate Urine Bilirubin Urine Urobilinogen Ur Leukocyte Esterase Urine WBC (Auto) Urine RBC (Auto) Ur Squamous Epith Cells Urine Bacteria Blood Type A POSITIVE Antibody Screen Negative 07/23/18 07/23/18 07/23/18 14:44 14:44 16:40 WBC RBC Hgb Hct MCV MCH MCHC RDW Plt Count MPV Neut % (Auto) Lymph % (Auto) [place] % (Auto) Eos % (Auto) Baso % (Auto) Neut # (Auto) Lymph # (Auto) [place] # (Auto) Eos # (Auto) Baso # (Auto) Neutrophils % (Manual) Band Neutrophils % Lymphocytes % (Manual) Monocytes % (Manual) Differential Comment Platelet Estimate Polychromasia Hypochromasia (manual) Anisocytosis (manual) Ovalocytes Retic Count PT INR APTT Puncture Site pCO2 pO2 HCO3 ABG pH ABG Total CO2 ABG O2 Saturation ABG Base Excess Cruz Test ABG Potassium A-a O2 Difference Respiratory Index Glucose Lactate Vent Mode Mechanical Rate FiO2 Tidal Volume PEEP Crit Value Called To Crit Value Called By Crit Value Read Back Blood Gas Notified Time Sodium 138 Potassium 3.5 L Chloride 92 L Carbon Dioxide 25 Anion Gap 24 H BUN 18 Creatinine 7.9 H* Est GFR ( Amer) 8 Est GFR (Non-Af Amer) 7 POC Glucose (mg/dL) Random Glucose 282 H Calcium 9.4 Phosphorus 4.0 Magnesium 2.4 H Iron TIBC % Saturation Transferrin Total Bilirubin 0.7 AST 527 H D ALT 446 H D Alkaline Phosphatase 74 Total Creatine Kinase 3962 H CK-MB (Mass) 103 H Troponin I 61.5000 H* NT-Pro-B Natriuret Pep Total Protein 7.5 Albumin 4.5 Globulin 3.0 Albumin/Globulin Ratio 1.5 Triglycerides Cholesterol LDL Cholesterol Direct HDL Cholesterol Vitamin B12 Folate Arterial Blood Potassium Urine Color Yellow Urine Clarity Hazy Urine pH 5.0 Ur Specific [place] 1.023 Urine Protein 1+ H Urine Glucose (UA) Normal Urine Ketones Negative Urine Blood Negative Urine Nitrate Negative Urine Bilirubin Negative Urine Urobilinogen Normal Ur Leukocyte Esterase Neg Urine WBC (Auto) 2 Urine RBC (Auto) 3 Ur Squamous Epith Cells < 1 Urine Bacteria Rare Blood Type Antibody Screen 07/23/18 07/23/18 07/23/18 19:30 22:15 22:15 WBC 20.8 H RBC 3.36 L Hgb 9.5 L Hct 31.0 L MCV 92.4 D MCH 28.2 MCHC 30.6 L RDW 17.0 H Plt Count 181 MPV 9.2 Neut % (Auto) 91.2 H Lymph % (Auto) 3.8 L [place] % (Auto) 4.8 Eos % (Auto) 0.1 Baso % (Auto) 0.1 Neut # (Auto) 18.9 H Lymph # (Auto) 0.8 L [place] # (Auto) 1.0 H Eos # (Auto) 0.0 Baso # (Auto) 0.0 Neutrophils % (Manual) 88 H Band Neutrophils % 5 H Lymphocytes % (Manual) 2 L Monocytes % (Manual) 5 Differential Comment Platelet Estimate Normal Polychromasia Hypochromasia (manual) Anisocytosis (manual) Ovalocytes Retic Count PT 13.7 H INR 1.3 APTT 40 H D Puncture Site Rba pCO2 43 pO2 285 H HCO3 15.3 L ABG pH 7.17 L* ABG Total CO2 17.0 L ABG O2 Saturation 99.5 H ABG Base Excess -12.4 L Cruz Test Pos ABG Potassium 3.7 A-a O2 Difference 374.0 Respiratory Index 1.3 Glucose 247 H Lactate 15.6 H* Vent Mode Prvc Mechanical Rate 20 FiO2 100.0 Tidal Volume 500 PEEP 5 Crit Value Called To Dr nuñez Crit Value Called By [facility] Crit Value Read Back Y Blood Gas Notified Time 1934 Sodium 142.0 Potassium Chloride 100.0 Carbon Dioxide Anion Gap BUN Creatinine Est GFR ( Amer) Est GFR (Non-Af Amer) POC Glucose (mg/dL) Random Glucose Calcium Phosphorus Magnesium Iron TIBC % Saturation Transferrin Total Bilirubin AST ALT Alkaline Phosphatase Total Creatine Kinase CK-MB (Mass) Troponin I NT-Pro-B Natriuret Pep Total Protein Albumin Globulin Albumin/Globulin Ratio Triglycerides Cholesterol LDL Cholesterol Direct HDL Cholesterol Vitamin B12 Folate Arterial Blood Potassium 3.7 Urine Color Urine Clarity Urine pH Ur Specific [place] Urine Protein Urine Glucose (UA) Urine Ketones Urine Blood Urine Nitrate Urine Bilirubin Urine Urobilinogen Ur Leukocyte Esterase Urine WBC (Auto) Urine RBC (Auto) Ur Squamous Epith Cells Urine Bacteria Blood Type Antibody Screen 07/23/18 07/23/18 07/24/18 22:15 22:15 00:04 WBC RBC Hgb Hct MCV MCH MCHC RDW Plt Count MPV Neut % (Auto) Lymph % (Auto) [place] % (Auto) Eos % (Auto) Baso % (Auto) Neut # (Auto) Lymph # (Auto) [place] # (Auto) Eos # (Auto) Baso # (Auto) Neutrophils % (Manual) Band Neutrophils % Lymphocytes % (Manual) Monocytes % (Manual) Differential Comment Platelet Estimate Polychromasia Hypochromasia (manual) Anisocytosis (manual) Ovalocytes Retic Count PT INR APTT Puncture Site pCO2 pO2 HCO3 ABG pH ABG Total CO2 ABG O2 Saturation ABG Base Excess Cruz Test ABG Potassium A-a O2 Difference Respiratory Index Glucose Lactate Vent Mode Mechanical Rate FiO2 Tidal Volume PEEP Crit Value Called To Crit Value Called By Crit Value Read Back Blood Gas Notified Time Sodium 140 Potassium 3.4 L Chloride 93 L Carbon Dioxide 19 L Anion Gap 30 H BUN 21 H Creatinine 8.7 H* Est GFR ( Amer) 8 Est GFR (Non-Af Amer) 6 POC Glucose (mg/dL) 260 H Random Glucose 240 H Calcium 9.1 Phosphorus 6.9 H Magnesium 2.6 H Iron TIBC % Saturation Transferrin Total Bilirubin AST ALT Alkaline Phosphatase Total Creatine Kinase 5933 H CK-MB (Mass) 168 H Troponin I 107.0000 H* NT-Pro-B Natriuret Pep Total Protein Albumin Globulin Albumin/Globulin Ratio Triglycerides Cholesterol LDL Cholesterol Direct HDL Cholesterol Vitamin B12 Folate Arterial Blood Potassium Urine Color Urine Clarity Urine pH Ur Specific [place] Urine Protein Urine Glucose (UA) Urine Ketones Urine Blood Urine Nitrate Urine Bilirubin Urine Urobilinogen Ur Leukocyte Esterase Urine WBC (Auto) Urine RBC (Auto) Ur Squamous Epith Cells Urine Bacteria Blood Type Antibody Screen 07/24/18 07/24/18 07/24/18 01:13 02:20 03:47 WBC RBC Hgb Hct MCV MCH MCHC RDW Plt Count MPV Neut % (Auto) Lymph % (Auto) [place] % (Auto) Eos % (Auto) Baso % (Auto) Neut # (Auto) Lymph # (Auto) [place] # (Auto) Eos # (Auto) Baso # (Auto) Neutrophils % (Manual) Band Neutrophils % Lymphocytes % (Manual) Monocytes % (Manual) Differential Comment Platelet Estimate Polychromasia Hypochromasia (manual) Anisocytosis (manual) Ovalocytes Retic Count PT INR APTT Puncture Site pCO2 pO2 HCO3 ABG pH ABG Total CO2 ABG O2 Saturation ABG Base Excess Cruz Test ABG Potassium A-a O2 Difference Respiratory Index Glucose Lactate Vent Mode Mechanical Rate FiO2 Tidal Volume PEEP Crit Value Called To Crit Value Called By Crit Value Read Back Blood Gas Notified Time Sodium Potassium Chloride Carbon Dioxide Anion Gap BUN Creatinine Est GFR ( Amer) Est GFR (Non-Af Amer) POC Glucose (mg/dL) 253 H 231 H 199 H Random Glucose Calcium Phosphorus Magnesium Iron TIBC % Saturation Transferrin Total Bilirubin AST ALT Alkaline Phosphatase Total Creatine Kinase CK-MB (Mass) Troponin I NT-Pro-B Natriuret Pep Total Protein Albumin Globulin Albumin/Globulin Ratio Triglycerides Cholesterol LDL Cholesterol Direct HDL Cholesterol Vitamin B12 Folate Arterial Blood Potassium Urine Color Urine Clarity Urine pH Ur Specific [place] Urine Protein Urine Glucose (UA) Urine Ketones Urine Blood Urine Nitrate Urine Bilirubin Urine Urobilinogen Ur Leukocyte Esterase Urine WBC (Auto) Urine RBC (Auto) Ur Squamous Epith Cells Urine Bacteria Blood Type Antibody Screen 07/24/18 07/24/18 07/24/18 04:40 05:13 05:50 WBC RBC Hgb Hct MCV MCH MCHC RDW Plt Count MPV Neut % (Auto) Lymph % (Auto) [place] % (Auto) Eos % (Auto) Baso % (Auto) Neut # (Auto) Lymph # (Auto) [place] # (Auto) Eos # (Auto) Baso # (Auto) Neutrophils % (Manual) Band Neutrophils % Lymphocytes % (Manual) Monocytes % (Manual) Differential Comment Platelet Estimate Polychromasia Hypochromasia (manual) Anisocytosis (manual) Ovalocytes Retic Count PT INR APTT Puncture Site R brac pCO2 36 pO2 290 H HCO3 14.8 L ABG pH 7.20 L ABG Total CO2 15.2 L ABG O2 Saturation 99.7 H ABG Base Excess -13.1 L Cruz Test Na ABG Potassium 4.1 A-a O2 Difference 164.0 Respiratory Index 0.6 Glucose 131 H Lactate 17.6 H* Vent Mode Prvc Mechanical Rate 24 FiO2 70.0 Tidal Volume 500 PEEP 5 Crit Value Called To Polly registered nurse cardiovascular icu Crit Value Called By Grazyna hernandez rt Crit Value Read Back Y Blood Gas Notified Time 615 Sodium 141.0 140 Potassium 3.5 L Chloride 99.0 91 L Carbon Dioxide 27 Anion Gap 25 H BUN 26 H Creatinine 8.9 H* Est GFR ( Amer) 7 Est GFR (Non-Af Amer) 6 POC Glucose (mg/dL) 151 H Random Glucose 134 H D Calcium 8.8 Phosphorus 5.7 H Magnesium 2.4 H Iron TIBC % Saturation Transferrin Total Bilirubin 0.5 AST 590 H ALT 377 H Alkaline Phosphatase 64 Total Creatine Kinase CK-MB (Mass) Troponin I NT-Pro-B Natriuret Pep Total Protein 7.3 Albumin 4.4 Globulin 2.9 Albumin/Globulin Ratio 1.5 Triglycerides 274 H Cholesterol 142 LDL Cholesterol Direct 63 HDL Cholesterol 23 L Vitamin B12 781 Folate 6.3 Arterial Blood Potassium 4.1 Urine Color Urine Clarity Urine pH Ur Specific [place] Urine Protein Urine Glucose (UA) Urine Ketones Urine Blood Urine Nitrate Urine Bilirubin Urine Urobilinogen Ur Leukocyte Esterase Urine WBC (Auto) Urine RBC (Auto) Ur Squamous Epith Cells Urine Bacteria Blood Type Antibody Screen 07/24/18 07/24/18 07/24/18 05:50 05:50 05:51 WBC 19.6 H RBC 3.42 L Hgb 9.6 L Hct 30.7 L MCV 89.9 D MCH 28.1 MCHC 31.2 L RDW 17.0 H Plt Count 183 MPV 9.0 Neut % (Auto) 87.7 H Lymph % (Auto) 7.2 L [place] % (Auto) 5.0 Eos % (Auto) 0.0 Baso % (Auto) 0.1 Neut # (Auto) 17.2 H Lymph # (Auto) 1.4 [place] # (Auto) 1.0 H Eos # (Auto) 0.0 Baso # (Auto) 0.0 Neutrophils % (Manual) Band Neutrophils % Lymphocytes % (Manual) Monocytes % (Manual) Differential Comment Platelet Estimate Polychromasia Hypochromasia (manual) Anisocytosis (manual) Ovalocytes Retic Count PT INR APTT Puncture Site pCO2 pO2 HCO3 ABG pH ABG Total CO2 ABG O2 Saturation ABG Base Excess Cruz Test ABG Potassium A-a O2 Difference Respiratory Index Glucose Lactate Vent Mode Mechanical Rate FiO2 Tidal Volume PEEP Crit Value Called To Crit Value Called By Crit Value Read Back Blood Gas Notified Time Sodium Potassium Chloride Carbon Dioxide Anion Gap BUN Creatinine Est GFR ( Amer) Est GFR (Non-Af Amer) POC Glucose (mg/dL) Random Glucose Calcium Phosphorus Magnesium Iron 46 L TIBC 210 L % Saturation 22 Transferrin 150.39 L Total Bilirubin AST ALT Alkaline Phosphatase Total Creatine Kinase CK-MB (Mass) Troponin I NT-Pro-B Natriuret Pep Total Protein Albumin Globulin Albumin/Globulin Ratio Triglycerides Cholesterol LDL Cholesterol Direct HDL Cholesterol Vitamin B12 Folate Arterial Blood Potassium Urine Color Urine Clarity Urine pH Ur Specific [place] Urine Protein Urine Glucose (UA) Urine Ketones Urine Blood Urine Nitrate Urine Bilirubin Urine Urobilinogen Ur Leukocyte Esterase Urine WBC (Auto) Urine RBC (Auto) Ur Squamous Epith Cells Urine Bacteria Blood Type Antibody Screen 07/24/18 07/24/18 05:51 05:51 WBC RBC Hgb Hct MCV MCH MCHC RDW Plt Count MPV Neut % (Auto) Lymph % (Auto) [place] % (Auto) Eos % (Auto) Baso % (Auto) Neut # (Auto) Lymph # (Auto) [place] # (Auto) Eos # (Auto) Baso # (Auto) Neutrophils % (Manual) Band Neutrophils % Lymphocytes % (Manual) Monocytes % (Manual) Differential Comment Platelet Estimate Polychromasia Hypochromasia (manual) Anisocytosis (manual) Ovalocytes Retic Count 1.8 H PT INR APTT 41 H Puncture Site pCO2 pO2 HCO3 ABG pH ABG Total CO2 ABG O2 Saturation ABG Base Excess Cruz Test ABG Potassium A-a O2 Difference Respiratory Index Glucose Lactate Vent Mode Mechanical Rate FiO2 Tidal Volume PEEP Crit Value Called To Crit Value Called By Crit Value Read Back Blood Gas Notified Time Sodium Potassium Chloride Carbon Dioxide Anion Gap BUN Creatinine Est GFR ( Amer) Est GFR (Non-Af Amer) POC Glucose (mg/dL) Random Glucose Calcium Phosphorus Magnesium Iron TIBC % Saturation Transferrin Total Bilirubin AST ALT Alkaline Phosphatase Total Creatine Kinase CK-MB (Mass) Troponin I NT-Pro-B Natriuret Pep Total Protein Albumin Globulin Albumin/Globulin Ratio Triglycerides Cholesterol LDL Cholesterol Direct HDL Cholesterol Vitamin B12 Folate Arterial Blood Potassium Urine Color Urine Clarity Urine pH Ur Specific [place] Urine Protein Urine Glucose (UA) Urine Ketones Urine Blood Urine Nitrate Urine Bilirubin Urine Urobilinogen Ur Leukocyte Esterase Urine WBC (Auto) Urine RBC (Auto) Ur Squamous Epith Cells Urine Bacteria Blood Type Antibody Screen Radiology Impressions: Radiology Impressions Chest X-Ray 07/23/18 10:32 IMPRESSION: Endotracheal tube terminates 2.3 cm proximal to the belkis. Nasogastric tube terminates in the stomach. Severe cardiomegaly and mild pulmonary venous congestion with redistribution. Head CT 07/23/18 12:22 IMPRESSION: Mild-moderate diffuse and confluent chronic periventricular white matter ischemic changes seen extending peripherally into the deep and subcortical white matter both cerebral hemispheres. Additionally, there also appears to be scattered chronic bilateral basal nuclei lacunar type infarcts. Note possibility of a small hyperacute infarct cannot be excluded based on this exam. Mild to moderate generalized volume loss. Mucoperiosteal inflammatory changes seen within all the paranasal sinuses. 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 EKG/Cardiology Studies: Cardiology / EKG Studies 07/23/18 10:32 ELECTROCARDIOGRAM Stat Comment: Mode Of Transportation: BED Reason For Exam: chest pain Fingerstick Blood Sugar Results: 139 Review of Systems - Review of Systems Systems not reviewed;Unavailable: Intubated Critical Care Progress Note - Nutrition Nutrition: Nutrition Category Date Time Status NPO Diet [DIET] Diets 07/23/18 Dinner Active Assessment/Plan - Assessment and Plan (Free Text) Assessment: 63 y o male with PMhx HIV (dx in 2004, currently on HAART tx), DM, HTN, HLD, CAD s/p 3 stents, and ESRD on HD MWF, who presented to the ED [facility] s/p cardiac arrest at dialysis (completed 3 hrs of tx). Reason for ICU consult was for s/p cardiac arrest x3. Currently intubated in ICU, s/p cardiac arrest this am in unit with ROSC achieved. Palliative care consulted. Pt's at bedside consented to DNR status at this time. Plan: Neuro: -Intubated, unable to assess at this time -Cont to monitor -CT head on admission: Mild-moderate diffuse and conflient chronic periventricular white matter ischemic changes seen extending peripherally into the deep and subcortical white matter both cerebral hemispheres. Additionally, there also appears to be scattered chronic b/l basal nuclei lacunar type infarcts. Note possibility of a small hyperacute infarct cannot be excluded based on this exam. Mild to moderate generalized volume loss. Mucoperiosteal inflammatory changes seen within all the paranasal sinuses. Fusion anomaly anterior arch C1. Cardio: -S/p cardiac arrest x3 as noted above in detail -Hypothermic protocol, rewarming this am -Tylenol, Meperidine prn for chills -Hx HTN, HLD, CAD s/p 3 stents -Troponins elevated and trending up -BNP elevated on admission -Cardiology consulted, Dr. León, recs appreciated -Echo pending -ASA, Plavix -Lasix bid, monitor K -Zetia -Metoprolol, Procardia XL -Hold home bp meds for hypotension -Crestor -A1c 6.2, lipid panel demonstrates elevated TGs and low HDL Pulm: -Currently on ventilator s/p intubation 2/2 cardiac arrest -Metabolic acidosis present on ABG on admission: 7.03/23/267/6.8 -Repeat ABG this am s/p cardiac arrest: 7.01/39/260/8.8 -Duonebs q4h -Cont to monitor -Maintain O2 sat > 92% GI: -NPO -Protonix -No acute issues at this time Renal: -Hx ESRD on HD MWF -Nephrology consulted (Dr. Queen), recs appreciated -BUN/Cr 26/8.9 -Cont to trend I's/O's -Pt unstable for HD at this time, will cont to monitor and reassess ID: -Hx HIV on HAART rx, home meds restarted -ID consulted, Dr. Hamilton, recs appreciated -Leukocytosis -On hypothermic protocol s/p cardiac arrest, rewarming initiated this am -No anbx at this time Heme: -H/H demonstrates anemia, may be 2/2 HIV diagnosis -Low iron studies, B12 and folate wnl, retic ct elevated -Thrombocytopenia resolved, cont to trend -L-shift present PPX: -Protonix, Heparin -Currently DNR status -Palliative care consulted, recs appreciated Pt seen, examined with, and plan discussed with Dr. Pisano, attending physician. Momo Hsu, DO PGY-1, Community Health Planning Director Pager #[phone]
[2018-07-24 08:12] LABS: ANISOCYTOSIS SLIGHT; BANDS 11 % (0-2); HYPOCHROMIC SLIGHT; LYMPHOCYTE 8 % (20-40); MONOCYTE 7 % (0-10); NEUTROPHIL 74 % (50-75); NUCLEATED RED BLOOD CELL 1 % (0-0); OVALOCYTES MODERATE; PLATELET ESTIMATE NORMAL (NORMAL); POIKILOCYTOSIS SLIGHT; TOTAL CELLS COUNTED 100
[2018-07-24 08:13] LABS: GIANT PLATELETS PRESENT; LARGE PLATELETS PRESENT; SCHISTOCYTES SLIGHT
[2018-07-24 08:14] VITALS: TEMP 91.6
--- NOTE | 2018-07-24 09:01 | CP.PCM.CON ---
History of Present Illness - History of Present Illness History of Present Illness: patient seen and examined consult dictated esrd post cardiac arrest metabolic and resp acidosis requiring pressors fo bp support intubated and comatose access clotted Called family member left message on voice mail needs dialysis today case discussed with service member Past Patient History - Past Medical History & Family History Past Medical History?: Yes - Past Social History Smoking Status: Unknown If Ever Smoked - CARDIAC Hx Hypercholesterolemia: Yes Hx Hypertension: Yes Other/Comment: Hx of CAD, coronary stents x 3 - placed in 2018 - PULMONARY Hx Respiratory Disorders: No - NEUROLOGICAL Hx Neurological Disorder: No - HEENT Hx Blind: Yes (Both eyes) - RENAL Hx Chronic Kidney Disease: Yes Hx Dialysis: Yes (Started in June 2017) Type of Dialysis Access: Left arm fistula Date of Last Dialysis Treatment: 07/23/18 - ENDOCRINE/METABOLIC Hx Diabetes Mellitus Type 2: Yes - HEMATOLOGICAL/ONCOLOGICAL Hx Human Immunodeficiency Virus (HIV): Yes - INTEGUMENTARY Hx Dermatological Problems: No - MUSCULOSKELETAL/RHEUMATOLOGICAL Hx Musculoskeletal Disorders: No Hx Falls: No - GASTROINTESTINAL Hx Gastrointestinal Disorders: No - GENITOURINARY/GYNECOLOGICAL Hx Genitourinary Disorders: No - PSYCHIATRIC Hx Substance Use: No (UNKNOWN) - SURGICAL HISTORY Hx Surgeries: (UNKNOWN) - ANESTHESIA Hx Anesthesia: No (UNKNOWN) Meds Allergies/Adverse Reactions: Allergies Allergy/AdvReac Type Severity Reaction Status Date / Time Peanut butter Allergy RASH Uncoded 07/23/18 19:34 - Medications Medications: Current Medications Albuterol/Ipratropium (Duoneb 3 Mg/0.5 Mg (3 Ml) Ud) 3 ml INH RQ4 SANDI Last Admin: 07/24/18 07:44 Dose: 3 ml Artificial Tears (Lacri-Lube) 1 gm OU Q4H SANDI Calcium Acetate (Phoslo) 667 mg PO DAILY SANDI Ezetimibe (Zetia) 10 mg PO HS SANDI Last Admin: 07/23/18 21:44 Dose: Not Given Famotidine (Pepcid) 20 mg PO DAILY SANDI Gabapentin (Neurontin) 100 mg PO HS SANDI Last Admin: 07/23/18 21:44 Dose: Not Given Heparin Sodium (Porcine) (Heparin) 5,000 units SC Q8 SANDI Last Admin: 07/24/18 05:48 Dose: 5,000 units Home Med (Patient's Own Medication) 1 tab PO DAILY SANDI Norepinephrine Bitartrate 4 mg (/ Sodium Chloride) 254 mls @ 15.24 mls/hr IV .[id number] PRN; Protocol PRN Reason: TITRATE PER MD ORDER Last Titration: 07/24/18 08:00 Dose: 10 mcg/min, 38.1 mls/hr Dopamine HCl/Dextrose (Dopamine 400mg/250ml D5w) 400 mg in 250 mls @ 7.032 mls/hr IV .Q24H PRN; Protocol PRN Reason: TITRATE PER MD ORDER Last Admin: 07/24/18 08:50 Dose: 20 mcg/kg/min, 70.319 mls/hr Vasopressin 40 units/ Dextrose 42 mls @ 0.63 mls/hr IV .Q24H SANDI; Protocol Sodium Bicarbonate 150 meq/ (Dextrose) 1,150 mls @ 60 mls/hr IV .[id number] SANDI Last Admin: 07/24/18 08:15 Dose: 60 mls/hr Potassium Chloride (Potassium Chloride 20 Meq/100 Ml) 20 meq in 100 mls @ 50 mls/hr IVPB ONCE ONE Stop: 07/24/18 10:02 Insulin Human Regular (Novolin R) 0 unit SC Q1H SANDI; Protocol Last Admin: 07/24/18 08:16 Dose: Not Given Meperidine HCl (Demerol) 25 mg IVP Q30M PRN PRN Reason: Rigors Potassium Chloride (Potassium Chloride Oral Soln) 20 meq PO DAILY SANDI Raltegravir (Isentress) 400 mg PO Q12H SANDI; Protocol Results - Vital Signs Recent Vital Signs: Last Vital Signs Temp 91.6 F L 07/24/18 08:00 Pulse 76 07/24/18 08:19 Resp 24 07/24/18 08:19 BP 125/81 07/24/18 08:50 Pulse Ox 99 07/24/18 08:19 - Labs Result Diagrams: 07/24/18 05:51 07/24/18 05:50 Labs: Laboratory Results - last 24 hr 07/23/18 07/23/18 07/23/18 11:04 11:04 11:04 WBC 23.3 H RBC 3.46 L Hgb 9.5 L Hct 32.5 L MCV 93.8 MCH 27.5 MCHC 29.4 L RDW 16.7 H Plt Count 99 L MPV 8.3 Neut % (Auto) 49.9 L Lymph % (Auto) 43.3 H [place] % (Auto) 4.9 Eos % (Auto) 1.5 Baso % (Auto) 0.4 Neut # (Auto) 11.6 H Lymph # (Auto) 10.1 H [place] # (Auto) 1.1 H Eos # (Auto) 0.4 Baso # (Auto) 0.1 Neutrophils % (Manual) Band Neutrophils % Lymphocytes % (Manual) Monocytes % (Manual) Nucleated RBC % Differential Comment Platelet Estimate Large Platelets Giant Platelets Polychromasia Hypochromasia (manual) Poikilocytosis (manual Anisocytosis (manual) Ovalocytes Schistocytes Retic Count PT 12.5 H INR 1.1 APTT 45 H Puncture Site pCO2 pO2 HCO3 ABG pH ABG Total CO2 ABG O2 Saturation ABG Base Excess Cruz Test ABG Potassium A-a O2 Difference Respiratory Index Glucose Lactate Vent Mode Mechanical Rate FiO2 Tidal Volume PEEP Crit Value Called To Crit Value Called By Crit Value Read Back Blood Gas Notified Time Sodium 141 Potassium 3.1 L Chloride 95 L Carbon Dioxide 16 L Anion Gap 32 H BUN 13 Creatinine 6.6 H Est GFR ( Amer) 10 Est GFR (Non-Af Amer) 9 POC Glucose (mg/dL) Random Glucose 304 H Hemoglobin A1c Calcium 9.6 Phosphorus Magnesium Iron TIBC % Saturation Transferrin Total Bilirubin 0.4 AST 266 H ALT 335 H Alkaline Phosphatase 49 Total Creatine Kinase 277 H CK-MB (Mass) 5.15 H Troponin I 0.2240 H* NT-Pro-B Natriuret Pep 69818 H Total Protein 6.4 Albumin 3.9 Globulin 2.4 Albumin/Globulin Ratio 1.6 Triglycerides Cholesterol LDL Cholesterol Direct HDL Cholesterol Vitamin B12 Folate Arterial Blood Potassium Urine Color Urine Clarity Urine pH Ur Specific [place] Urine Protein Urine Glucose (UA) Urine Ketones Urine Blood Urine Nitrate Urine Bilirubin Urine Urobilinogen Ur Leukocyte Esterase Urine WBC (Auto) Urine RBC (Auto) Ur Squamous Epith Cells Urine Bacteria Blood Type Antibody Screen 07/23/18 07/23/18 07/23/18 11:26 11:50 14:44 WBC 15.2 H RBC 3.59 L Hgb 10.1 L Hct 32.1 L MCV 89.3 D MCH 28.1 MCHC 31.5 L RDW 17.0 H Plt Count 178 MPV 8.8 Neut % (Auto) 84.4 H Lymph % (Auto) 7.4 L [place] % (Auto) 7.7 Eos % (Auto) 0.2 Baso % (Auto) 0.3 Neut # (Auto) 12.9 H Lymph # (Auto) 1.1 [place] # (Auto) 1.2 H Eos # (Auto) 0.0 Baso # (Auto) 0.0 Neutrophils % (Manual) 88 H Band Neutrophils % 2 Lymphocytes % (Manual) 7 L Monocytes % (Manual) 3 Nucleated RBC % Differential Comment Platelet Estimate Normal Large Platelets Giant Platelets Polychromasia Slight Hypochromasia (manual) Slight Poikilocytosis (manual Anisocytosis (manual) Slight Ovalocytes Slight Schistocytes Retic Count PT INR APTT Puncture Site Rb pCO2 23 L pO2 267 H HCO3 6.8 L* ABG pH 7.03 L* ABG Total CO2 6.8 L ABG O2 Saturation 100.6 H ABG Base Excess -23.3 L Cruz Test Na ABG Potassium 1.2 L* A-a O2 Difference 417.0 Respiratory Index 1.6 Glucose 111 H Lactate 6.0 H* Vent Mode Prvc Mechanical Rate 16 FiO2 100.0 Tidal Volume 500 PEEP 5 Crit Value Called To T deshawn do Crit Value Called By Lily ward pharmacy technologist Crit Value Read Back Y Blood Gas Notified Time 1200 Sodium 158.0 H Potassium Chloride 131.0 H Carbon Dioxide Anion Gap BUN Creatinine Est GFR ( Amer) Est GFR (Non-Af Amer) POC Glucose (mg/dL) Random Glucose Hemoglobin A1c Calcium Phosphorus Magnesium Iron TIBC % Saturation Transferrin Total Bilirubin AST ALT Alkaline Phosphatase Total Creatine Kinase CK-MB (Mass) Troponin I NT-Pro-B Natriuret Pep Total Protein Albumin Globulin Albumin/Globulin Ratio Triglycerides Cholesterol LDL Cholesterol Direct HDL Cholesterol Vitamin B12 Folate Arterial Blood Potassium 1.2 L* Urine Color Urine Clarity Urine pH Ur Specific [place] Urine Protein Urine Glucose (UA) Urine Ketones Urine Blood Urine Nitrate Urine Bilirubin Urine Urobilinogen Ur Leukocyte Esterase Urine WBC (Auto) Urine RBC (Auto) Ur Squamous Epith Cells Urine Bacteria Blood Type A POSITIVE Antibody Screen Negative 07/23/18 07/23/18 07/23/18 14:44 14:44 16:40 WBC RBC Hgb Hct MCV MCH MCHC RDW Plt Count MPV Neut % (Auto) Lymph % (Auto) [place] % (Auto) Eos % (Auto) Baso % (Auto) Neut # (Auto) Lymph # (Auto) [place] # (Auto) Eos # (Auto) Baso # (Auto) Neutrophils % (Manual) Band Neutrophils % Lymphocytes % (Manual) Monocytes % (Manual) Nucleated RBC % Differential Comment Platelet Estimate Large Platelets Giant Platelets Polychromasia Hypochromasia (manual) Poikilocytosis (manual Anisocytosis (manual) Ovalocytes Schistocytes Retic Count PT INR APTT Puncture Site pCO2 pO2 HCO3 ABG pH ABG Total CO2 ABG O2 Saturation ABG Base Excess Cruz Test ABG Potassium A-a O2 Difference Respiratory Index Glucose Lactate Vent Mode Mechanical Rate FiO2 Tidal Volume PEEP Crit Value Called To Crit Value Called By Crit Value Read Back Blood Gas Notified Time Sodium 138 Potassium 3.5 L Chloride 92 L Carbon Dioxide 25 Anion Gap 24 H BUN 18 Creatinine 7.9 H* Est GFR ( Amer) 8 Est GFR (Non-Af Amer) 7 POC Glucose (mg/dL) Random Glucose 282 H Hemoglobin A1c Calcium 9.4 Phosphorus 4.0 Magnesium 2.4 H Iron TIBC % Saturation Transferrin Total Bilirubin 0.7 AST 527 H D ALT 446 H D Alkaline Phosphatase 74 Total Creatine Kinase 3962 H CK-MB (Mass) 103 H Troponin I 61.5000 H* NT-Pro-B Natriuret Pep Total Protein 7.5 Albumin 4.5 Globulin 3.0 Albumin/Globulin Ratio 1.5 Triglycerides Cholesterol LDL Cholesterol Direct HDL Cholesterol Vitamin B12 Folate Arterial Blood Potassium Urine Color Yellow Urine Clarity Hazy Urine pH 5.0 Ur Specific [place] 1.023 Urine Protein 1+ H Urine Glucose (UA) Normal Urine Ketones Negative Urine Blood Negative Urine Nitrate Negative Urine Bilirubin Negative Urine Urobilinogen Normal Ur Leukocyte Esterase Neg Urine WBC (Auto) 2 Urine RBC (Auto) 3 Ur Squamous Epith Cells < 1 Urine Bacteria Rare Blood Type Antibody Screen 07/23/18 07/23/18 07/23/18 19:30 22:15 22:15 WBC 20.8 H RBC 3.36 L Hgb 9.5 L Hct 31.0 L MCV 92.4 D MCH 28.2 MCHC 30.6 L RDW 17.0 H Plt Count 181 MPV 9.2 Neut % (Auto) 91.2 H Lymph % (Auto) 3.8 L [place] % (Auto) 4.8 Eos % (Auto) 0.1 Baso % (Auto) 0.1 Neut # (Auto) 18.9 H Lymph # (Auto) 0.8 L [place] # (Auto) 1.0 H Eos # (Auto) 0.0 Baso # (Auto) 0.0 Neutrophils % (Manual) 88 H Band Neutrophils % 5 H Lymphocytes % (Manual) 2 L Monocytes % (Manual) 5 Nucleated RBC % Differential Comment Platelet Estimate Normal Large Platelets Giant Platelets Polychromasia Hypochromasia (manual) Poikilocytosis (manual Anisocytosis (manual) Ovalocytes Schistocytes Retic Count PT 13.7 H INR 1.3 APTT 40 H D Puncture Site Rba pCO2 43 pO2 285 H HCO3 15.3 L ABG pH 7.17 L* ABG Total CO2 17.0 L ABG O2 Saturation 99.5 H ABG Base Excess -12.4 L Cruz Test Pos ABG Potassium 3.7 A-a O2 Difference 374.0 Respiratory Index 1.3 Glucose 247 H Lactate 15.6 H* Vent Mode Prvc Mechanical Rate 20 FiO2 100.0 Tidal Volume 500 PEEP 5 Crit Value Called To Dr nuñez Crit Value Called By [facility] Crit Value Read Back Y Blood Gas Notified Time 1934 Sodium 142.0 Potassium Chloride 100.0 Carbon Dioxide Anion Gap BUN Creatinine Est GFR ( Amer) Est GFR (Non-Af Amer) POC Glucose (mg/dL) Random Glucose Hemoglobin A1c Calcium Phosphorus Magnesium Iron TIBC % Saturation Transferrin Total Bilirubin AST ALT Alkaline Phosphatase Total Creatine Kinase CK-MB (Mass) Troponin I NT-Pro-B Natriuret Pep Total Protein Albumin Globulin Albumin/Globulin Ratio Triglycerides Cholesterol LDL Cholesterol Direct HDL Cholesterol Vitamin B12 Folate Arterial Blood Potassium 3.7 Urine Color Urine Clarity Urine pH Ur Specific [place] Urine Protein Urine Glucose (UA) Urine Ketones Urine Blood Urine Nitrate Urine Bilirubin Urine Urobilinogen Ur Leukocyte Esterase Urine WBC (Auto) Urine RBC (Auto) Ur Squamous Epith Cells Urine Bacteria Blood Type Antibody Screen 07/23/18 07/23/18 07/24/18 22:15 22:15 00:04 WBC RBC Hgb Hct MCV MCH MCHC RDW Plt Count MPV Neut % (Auto) Lymph % (Auto) [place] % (Auto) Eos % (Auto) Baso % (Auto) Neut # (Auto) Lymph # (Auto) [place] # (Auto) Eos # (Auto) Baso # (Auto) Neutrophils % (Manual) Band Neutrophils % Lymphocytes % (Manual) Monocytes % (Manual) Nucleated RBC % Differential Comment Platelet Estimate Large Platelets Giant Platelets Polychromasia Hypochromasia (manual) Poikilocytosis (manual Anisocytosis (manual) Ovalocytes Schistocytes Retic Count PT INR APTT Puncture Site pCO2 pO2 HCO3 ABG pH ABG Total CO2 ABG O2 Saturation ABG Base Excess Cruz Test ABG Potassium A-a O2 Difference Respiratory Index Glucose Lactate Vent Mode Mechanical Rate FiO2 Tidal Volume PEEP Crit Value Called To Crit Value Called By Crit Value Read Back Blood Gas Notified Time Sodium 140 Potassium 3.4 L Chloride 93 L Carbon Dioxide 19 L Anion Gap 30 H BUN 21 H Creatinine 8.7 H* Est GFR ( Amer) 8 Est GFR (Non-Af Amer) 6 POC Glucose (mg/dL) 260 H Random Glucose 240 H Hemoglobin A1c Calcium 9.1 Phosphorus 6.9 H Magnesium 2.6 H Iron TIBC % Saturation Transferrin Total Bilirubin AST ALT Alkaline Phosphatase Total Creatine Kinase 5933 H CK-MB (Mass) 168 H Troponin I 107.0000 H* NT-Pro-B Natriuret Pep Total Protein Albumin Globulin Albumin/Globulin Ratio Triglycerides Cholesterol LDL Cholesterol Direct HDL Cholesterol Vitamin B12 Folate Arterial Blood Potassium Urine Color Urine Clarity Urine pH Ur Specific [place] Urine Protein Urine Glucose (UA) Urine Ketones Urine Blood Urine Nitrate Urine Bilirubin Urine Urobilinogen Ur Leukocyte Esterase Urine WBC (Auto) Urine RBC (Auto) Ur Squamous Epith Cells Urine Bacteria Blood Type Antibody Screen 07/24/18 07/24/18 07/24/18 01:13 02:20 03:47 WBC RBC Hgb Hct MCV MCH MCHC RDW Plt Count MPV Neut % (Auto) Lymph % (Auto) [place] % (Auto) Eos % (Auto) Baso % (Auto) Neut # (Auto) Lymph # (Auto) [place] # (Auto) Eos # (Auto) Baso # (Auto) Neutrophils % (Manual) Band Neutrophils % Lymphocytes % (Manual) Monocytes % (Manual) Nucleated RBC % Differential Comment Platelet Estimate Large Platelets Giant Platelets Polychromasia Hypochromasia (manual) Poikilocytosis (manual Anisocytosis (manual) Ovalocytes Schistocytes Retic Count PT INR APTT Puncture Site pCO2 pO2 HCO3 ABG pH ABG Total CO2 ABG O2 Saturation ABG Base Excess Cruz Test ABG Potassium A-a O2 Difference Respiratory Index Glucose Lactate Vent Mode Mechanical Rate FiO2 Tidal Volume PEEP Crit Value Called To Crit Value Called By Crit Value Read Back Blood Gas Notified Time Sodium Potassium Chloride Carbon Dioxide Anion Gap BUN Creatinine Est GFR ( Amer) Est GFR (Non-Af Amer) POC Glucose (mg/dL) 253 H 231 H 199 H Random Glucose Hemoglobin A1c Calcium Phosphorus Magnesium Iron TIBC % Saturation Transferrin Total Bilirubin AST ALT Alkaline Phosphatase Total Creatine Kinase CK-MB (Mass) Troponin I NT-Pro-B Natriuret Pep Total Protein Albumin Globulin Albumin/Globulin Ratio Triglycerides Cholesterol LDL Cholesterol Direct HDL Cholesterol Vitamin B12 Folate Arterial Blood Potassium Urine Color Urine Clarity Urine pH Ur Specific [place] Urine Protein Urine Glucose (UA) Urine Ketones Urine Blood Urine Nitrate Urine Bilirubin Urine Urobilinogen Ur Leukocyte Esterase Urine WBC (Auto) Urine RBC (Auto) Ur Squamous Epith Cells Urine Bacteria Blood Type Antibody Screen 07/24/18 07/24/18 07/24/18 04:40 05:13 05:50 WBC RBC Hgb Hct MCV MCH MCHC RDW Plt Count MPV Neut % (Auto) Lymph % (Auto) [place] % (Auto) Eos % (Auto) Baso % (Auto) Neut # (Auto) Lymph # (Auto) [place] # (Auto) Eos # (Auto) Baso # (Auto) Neutrophils % (Manual) Band Neutrophils % Lymphocytes % (Manual) Monocytes % (Manual) Nucleated RBC % Differential Comment Platelet Estimate Large Platelets Giant Platelets Polychromasia Hypochromasia (manual) Poikilocytosis (manual Anisocytosis (manual) Ovalocytes Schistocytes Retic Count PT INR APTT Puncture Site R brac pCO2 36 pO2 290 H HCO3 14.8 L ABG pH 7.20 L ABG Total CO2 15.2 L ABG O2 Saturation 99.7 H ABG Base Excess -13.1 L Cruz Test Na ABG Potassium 4.1 A-a O2 Difference 164.0 Respiratory Index 0.6 Glucose 131 H Lactate 17.6 H* Vent Mode Prvc Mechanical Rate 24 FiO2 70.0 Tidal Volume 500 PEEP 5 Crit Value Called To Polly curriculum developer Crit Value Called By Grazyna hernandez rt Crit Value Read Back Y Blood Gas Notified Time 615 Sodium 141.0 140 Potassium 3.5 L Chloride 99.0 91 L Carbon Dioxide 27 Anion Gap 25 H BUN 26 H Creatinine 8.9 H* Est GFR ( Amer) 7 Est GFR (Non-Af Amer) 6 POC Glucose (mg/dL) 151 H Random Glucose 134 H D Hemoglobin A1c Calcium 8.8 Phosphorus 5.7 H Magnesium 2.4 H Iron TIBC % Saturation Transferrin Total Bilirubin 0.5 AST 590 H ALT 377 H Alkaline Phosphatase 64 Total Creatine Kinase CK-MB (Mass) Troponin I NT-Pro-B Natriuret Pep Total Protein 7.3 Albumin 4.4 Globulin 2.9 Albumin/Globulin Ratio 1.5 Triglycerides 274 H Cholesterol 142 LDL Cholesterol Direct 63 HDL Cholesterol 23 L Vitamin B12 781 Folate 6.3 Arterial Blood Potassium 4.1 Urine Color Urine Clarity Urine pH Ur Specific [place] Urine Protein Urine Glucose (UA) Urine Ketones Urine Blood Urine Nitrate Urine Bilirubin Urine Urobilinogen Ur Leukocyte Esterase Urine WBC (Auto) Urine RBC (Auto) Ur Squamous Epith Cells Urine Bacteria Blood Type Antibody Screen 07/24/18 07/24/18 07/24/18 05:50 05:50 05:51 WBC 19.6 H RBC 3.42 L Hgb 9.6 L Hct 30.7 L MCV 89.9 D MCH 28.1 MCHC 31.2 L RDW 17.0 H Plt Count 183 MPV 9.0 Neut % (Auto) 87.7 H Lymph % (Auto) 7.2 L [place] % (Auto) 5.0 Eos % (Auto) 0.0 Baso % (Auto) 0.1 Neut # (Auto) 17.2 H Lymph # (Auto) 1.4 [place] # (Auto) 1.0 H Eos # (Auto) 0.0 Baso # (Auto) 0.0 Neutrophils % (Manual) 74 Band Neutrophils % 11 H* Lymphocytes % (Manual) 8 L Monocytes % (Manual) 7 Nucleated RBC % 1 H Differential Comment Platelet Estimate Normal Large Platelets Present Giant Platelets Present Polychromasia Hypochromasia (manual) Slight Poikilocytosis (manual Slight Anisocytosis (manual) Slight Ovalocytes Moderate Schistocytes Slight Retic Count PT INR APTT Puncture Site pCO2 pO2 HCO3 ABG pH ABG Total CO2 ABG O2 Saturation ABG Base Excess Cruz Test ABG Potassium A-a O2 Difference Respiratory Index Glucose Lactate Vent Mode Mechanical Rate FiO2 Tidal Volume PEEP Crit Value Called To Crit Value Called By Crit Value Read Back Blood Gas Notified Time Sodium Potassium Chloride Carbon Dioxide Anion Gap BUN Creatinine Est GFR ( Amer) Est GFR (Non-Af Amer) POC Glucose (mg/dL) Random Glucose Hemoglobin A1c Calcium Phosphorus Magnesium Iron 46 L TIBC 210 L % Saturation 22 Transferrin 150.39 L Total Bilirubin AST ALT Alkaline Phosphatase Total Creatine Kinase CK-MB (Mass) Troponin I NT-Pro-B Natriuret Pep Total Protein Albumin Globulin Albumin/Globulin Ratio Triglycerides Cholesterol LDL Cholesterol Direct HDL Cholesterol Vitamin B12 Folate Arterial Blood Potassium Urine Color Urine Clarity Urine pH Ur Specific [place] Urine Protein Urine Glucose (UA) Urine Ketones Urine Blood Urine Nitrate Urine Bilirubin Urine Urobilinogen Ur Leukocyte Esterase Urine WBC (Auto) Urine RBC (Auto) Ur Squamous Epith Cells Urine Bacteria Blood Type Antibody Screen 07/24/18 07/24/18 07/24/18 05:51 05:51 05:51 WBC RBC Hgb Hct MCV MCH MCHC RDW Plt Count MPV Neut % (Auto) Lymph % (Auto) [place] % (Auto) Eos % (Auto) Baso % (Auto) Neut # (Auto) Lymph # (Auto) [place] # (Auto) Eos # (Auto) Baso # (Auto) Neutrophils % (Manual) Band Neutrophils % Lymphocytes % (Manual) Monocytes % (Manual) Nucleated RBC % Differential Comment Platelet Estimate Large Platelets Giant Platelets Polychromasia Hypochromasia (manual) Poikilocytosis (manual Anisocytosis (manual) Ovalocytes Schistocytes Retic Count 1.8 H PT INR APTT 41 H Puncture Site pCO2 pO2 HCO3 ABG pH ABG Total CO2 ABG O2 Saturation ABG Base Excess Cruz Test ABG Potassium A-a O2 Difference Respiratory Index Glucose Lactate Vent Mode Mechanical Rate FiO2 Tidal Volume PEEP Crit Value Called To Crit Value Called By Crit Value Read Back Blood Gas Notified Time Sodium Potassium Chloride Carbon Dioxide Anion Gap BUN Creatinine Est GFR ( Amer) Est GFR (Non-Af Amer) POC Glucose (mg/dL) Random Glucose Hemoglobin A1c 6.2 Calcium Phosphorus Magnesium Iron TIBC % Saturation Transferrin Total Bilirubin AST ALT Alkaline Phosphatase Total Creatine Kinase CK-MB (Mass) Troponin I NT-Pro-B Natriuret Pep Total Protein Albumin Globulin Albumin/Globulin Ratio Triglycerides Cholesterol LDL Cholesterol Direct HDL Cholesterol Vitamin B12 Folate Arterial Blood Potassium Urine Color Urine Clarity Urine pH Ur Specific [place] Urine Protein Urine Glucose (UA) Urine Ketones Urine Blood Urine Nitrate Urine Bilirubin Urine Urobilinogen Ur Leukocyte Esterase Urine WBC (Auto) Urine RBC (Auto) Ur Squamous Epith Cells Urine Bacteria Blood Type Antibody Screen Assessment & Plan (1) Hypertension associated with diabetes Status: Acute
[2018-07-24] MEDS ORDERED: NIFEdipine 60 mg ER Tab PO SCH (10:00)
[2018-07-24] MEDS ORDERED: Potassium Chloride 20 mEq/15 ml LIQ UD PO SCH (10:00)
[2018-07-24] MEDS ORDERED: Multivitamin Vitamin B Complex (Nephro-Vite) Tab PO SCH (10:00)
[2018-07-24] MEDS ORDERED: PREZCOBIX PO SCH (10:00)
[2018-07-24] MEDS ORDERED: EPINEPHrine- 1 MG in Sodium Chloride 0.9% 250 ML IV PRN (10:02)
--- NOTE | 2018-07-24 10:07 | CP.PCM.CON ---
History of Present Illness - History of Present Illness History of Present Illness: 63 y o male with PMhx HIV (dx in 2005, currently on HAART tx), DM, HTN, HLD, CAD s/p 3 stents, and ESRD on HD MWF, who presented to the ED [facility] s/p cardiac arrest at dialysis (completed 3 hrs of tx). As per EMS pt was eating a protein bar and then arrested, possible choking episode. Pt was given Epi x6 and CaCl in the field, shock x1 given for V-fib. Pt arrived in the ED s/p intubation, with CPR in progress. Epi x1 additionally given in ED, pt achieved ROSC at next pulse check, A-fib was present on EKG in ED. 10 mins later, pt became bradycardic and then pulseness. Epi x1 was given again and pt regained pulse. S/p IO placement in R tibia x1. Pt then lost pulse again, epi x1 given, CPR re-initiated. At next rhythm check pt regained pulse and organized rhythm was present on sample color maker. Reason for ICU consult was for s/p cardiac arrest x3. Unable to obtain HPI and ROS from pt due to pt's current clinical status. Pt's at bedside provided most of hx leading up to presentation to ED. As per , pt presented with productive cough with white sputum since last Monday07/20/18, instructed pt to go to ED because symptoms were not improving, but pt stated at time that he did not feel that terrible and would go to his dialysis appt this am before reconsidering. Compliant with home medications and dialysis treatments as per pt's . PMhx: as noted above PSurgHx: cardiac stents x3, s/p AV fistula placement in 2017 Allergies: peanut butter (hives) Home meds: reviewed as per [facility] Fam hx: unknown Soc hx: Former light cigarette smoker quit 30 y ago; denies EtOH or illicit drug use; lives at home with Review of Systems - Review of Systems Systems not reviewed;Unavailable: Altered Mental Status All systems: reviewed and no additional remarkable complaints except Past Patient History - Past Medical History & Family History Past Medical History?: Yes - Past Social History Smoking Status: Unknown If Ever Smoked - CARDIAC Hx Hypercholesterolemia: Yes Hx Hypertension: Yes Other/Comment: Hx of CAD, coronary stents x 3 - placed in 2018 - PULMONARY Hx Respiratory Disorders: No - NEUROLOGICAL Hx Neurological Disorder: No - HEENT Hx Blind: Yes (Both eyes) - RENAL Hx Chronic Kidney Disease: Yes Hx Dialysis: Yes (Started in June 2017) Type of Dialysis Access: Left arm fistula Date of Last Dialysis Treatment: 07/23/18 - ENDOCRINE/METABOLIC Hx Diabetes Mellitus Type 2: Yes - HEMATOLOGICAL/ONCOLOGICAL Hx Human Immunodeficiency Virus (HIV): Yes - INTEGUMENTARY Hx Dermatological Problems: No - MUSCULOSKELETAL/RHEUMATOLOGICAL Hx Musculoskeletal Disorders: No Hx Falls: No - GASTROINTESTINAL Hx Gastrointestinal Disorders: No - GENITOURINARY/GYNECOLOGICAL Hx Genitourinary Disorders: No - PSYCHIATRIC Hx Substance Use: No (UNKNOWN) - SURGICAL HISTORY Hx Surgeries: (UNKNOWN) - ANESTHESIA Hx Anesthesia: No (UNKNOWN) Meds Allergies/Adverse Reactions: Allergies Allergy/AdvReac Type Severity Reaction Status Date / Time Peanut butter Allergy RASH Uncoded 07/23/18 19:34 - Medications Medications: Current Medications Albuterol/Ipratropium (Duoneb 3 Mg/0.5 Mg (3 Ml) Ud) 3 ml INH RQ4 [facility] Last Admin: 07/24/18 07:44 Dose: 3 ml Artificial Tears (Lacri-Lube) 1 gm OU Q4H [facility] Calcium Acetate (Phoslo) 667 mg PO DAILY [facility] Last Admin: 07/24/18 09:13 Dose: Not Given Ezetimibe (Zetia) 10 mg PO HS [facility] Last Admin: 07/23/18 21:44 Dose: Not Given Famotidine (Pepcid) 20 mg PO DAILY [facility] Last Admin: 07/24/18 09:13 Dose: Not Given Gabapentin (Neurontin) 100 mg PO HS [facility] Last Admin: 07/23/18 21:44 Dose: Not Given Heparin Sodium (Porcine) (Heparin) 5,000 units SC Q8 [facility] Last Admin: 07/24/18 05:48 Dose: 5,000 units Home Med (Patient's Own Medication) 1 tab PO DAILY [facility] Norepinephrine Bitartrate 4 mg (/ Sodium Chloride) 254 mls @ 15.24 mls/hr IV .[id number] PRN; Protocol PRN Reason: TITRATE PER MD ORDER Last Admin: 07/24/18 09:12 Dose: 10 mcg/min, 38.1 mls/hr Dopamine HCl/Dextrose (Dopamine 400mg/250ml D5w) 400 mg in 250 mls @ 7.032 mls/hr IV .Q24H PRN; Protocol PRN Reason: TITRATE PER MD ORDER Last Admin: 07/24/18 08:50 Dose: 20 mcg/kg/min, 70.319 mls/hr Vasopressin 40 units/ Dextrose 42 mls @ 0.63 mls/hr IV .Q24H [facility]; Protocol Last Admin: 07/24/18 09:48 Dose: 0.01 units/min, 0.63 mls/hr Sodium Bicarbonate 150 meq/ (Dextrose) 1,150 mls @ 60 mls/hr IV .[id number] [facility] Last Admin: 07/24/18 08:15 Dose: 60 mls/hr Epinephrine HCl 1 mg/ Sodium (Chloride) 251 mls @ 15.06 mls/hr IV .[id number] PRN; Protocol PRN Reason: TITRATE PER MD ORDER Insulin Human Regular (Novolin R) 0 unit SC Q1H [facility]; Protocol Last Admin: 07/24/18 08:16 Dose: Not Given Meperidine HCl (Demerol) 25 mg IVP Q30M PRN PRN Reason: Rigors Potassium Chloride (Potassium Chloride Oral Soln) 20 meq PO DAILY [facility] Last Admin: 07/24/18 09:14 Dose: Not Given Raltegravir (Isentress) 400 mg PO Q12H [facility]; Protocol Physical Exam - Constitutional Appears: Chronically Ill - Head Exam Head Exam: NORMOCEPHALIC - Eye Exam Eye Exam: absent: Scleral icterus - ENT Exam ENT Exam: Mucous Membranes Dry - Neck Exam Neck exam: Negative for: Lymphadenopathy - Respiratory Exam Respiratory Exam: Decreased Breath Sounds - Cardiovascular Exam Cardiovascular Exam: REGULAR RHYTHM - GI/Abdominal Exam GI & Abdominal Exam: Diminished Bowel Sounds - Rectal Exam Rectal Exam: Deferred - Exam Exam: NORMAL INSPECTION - Extremities Exam Extremities exam: Positive for: pedal edema - Back Exam Back exam: absent: CVA tenderness (L), CVA tenderness (R) - Neurological Exam Neurological exam: Altered - Psychiatric Exam Psychiatric exam: Depressed - Skin Skin Exam: Dry Results - Vital Signs Recent Vital Signs: Last Vital Signs Temp 91.6 F L 07/24/18 08:00 Pulse 79 07/24/18 09:00 Resp 14 07/24/18 09:00 BP 99/28 L 07/24/18 09:48 Pulse Ox 90 L 07/24/18 08:29 - Labs Result Diagrams: 07/24/18 05:51 07/24/18 05:50 Labs: Laboratory Results - last 24 hr 07/23/18 07/23/18 07/23/18 11:04 11:04 11:04 WBC 23.3 H RBC 3.46 L Hgb 9.5 L Hct 32.5 L MCV 93.8 MCH 27.5 MCHC 29.4 L RDW 16.7 H Plt Count 99 L MPV 8.3 Neut % (Auto) 49.9 L Lymph % (Auto) 43.3 H Eddy % (Auto) 4.9 Eos % (Auto) 1.5 Baso % (Auto) 0.4 Neut # (Auto) 11.6 H Lymph # (Auto) 10.1 H Eddy # (Auto) 1.1 H Eos # (Auto) 0.4 Baso # (Auto) 0.1 Neutrophils % (Manual) Band Neutrophils % Lymphocytes % (Manual) Monocytes % (Manual) Nucleated RBC % Differential Comment Platelet Estimate Large Platelets Giant Platelets Polychromasia Hypochromasia (manual) Poikilocytosis (manual Anisocytosis (manual) Ovalocytes Schistocytes Retic Count PT 12.5 H INR 1.1 APTT 45 H Puncture Site pCO2 pO2 HCO3 ABG pH ABG Total CO2 ABG O2 Saturation ABG Base Excess Cruz Test ABG Potassium A-a O2 Difference Respiratory Index Glucose Lactate Vent Mode Mechanical Rate FiO2 Tidal Volume PEEP Crit Value Called To Crit Value Called By Crit Value Read Back Blood Gas Notified Time Sodium 141 Potassium 3.1 L Chloride 95 L Carbon Dioxide 16 L Anion Gap 32 H BUN 13 Creatinine 6.6 H Est GFR ( Amer) 10 Est GFR (Non-Af Amer) 9 POC Glucose (mg/dL) Random Glucose 304 H Hemoglobin A1c Calcium 9.6 Phosphorus Magnesium Iron TIBC % Saturation Transferrin Ferritin Total Bilirubin 0.4 AST 266 H ALT 335 H Alkaline Phosphatase 49 Total Creatine Kinase 277 H CK-MB (Mass) 5.15 H Troponin I 0.2240 H* NT-Pro-B Natriuret Pep 20740 H Total Protein 6.4 Albumin 3.9 Globulin 2.4 Albumin/Globulin Ratio 1.6 Triglycerides Cholesterol LDL Cholesterol Direct HDL Cholesterol Vitamin B12 Folate Arterial Blood Potassium Urine Color Urine Clarity Urine pH Ur Specific Meeker Urine Protein Urine Glucose (UA) Urine Ketones Urine Blood Urine Nitrate Urine Bilirubin Urine Urobilinogen Ur Leukocyte Esterase Urine WBC (Auto) Urine RBC (Auto) Ur Squamous Epith Cells Urine Bacteria Blood Type Antibody Screen 07/23/18 07/23/18 07/23/18 11:26 11:50 14:44 WBC 15.2 H RBC 3.59 L Hgb 10.1 L Hct 32.1 L MCV 89.3 D MCH 28.1 MCHC 31.5 L RDW 17.0 H Plt Count 178 MPV 8.8 Neut % (Auto) 84.4 H Lymph % (Auto) 7.4 L Eddy % (Auto) 7.7 Eos % (Auto) 0.2 Baso % (Auto) 0.3 Neut # (Auto) 12.9 H Lymph # (Auto) 1.1 Eddy # (Auto) 1.2 H Eos # (Auto) 0.0 Baso # (Auto) 0.0 Neutrophils % (Manual) 88 H Band Neutrophils % 2 Lymphocytes % (Manual) 7 L Monocytes % (Manual) 3 Nucleated RBC % Differential Comment Platelet Estimate Normal Large Platelets Giant Platelets Polychromasia Slight Hypochromasia (manual) Slight Poikilocytosis (manual Anisocytosis (manual) Slight Ovalocytes Slight Schistocytes Retic Count PT INR APTT Puncture Site Rb pCO2 23 L pO2 267 H HCO3 6.8 L* ABG pH 7.03 L* ABG Total CO2 6.8 L ABG O2 Saturation 100.6 H ABG Base Excess -23.3 L Cruz Test Na ABG Potassium 1.2 L* A-a O2 Difference 417.0 Respiratory Index 1.6 Glucose 111 H Lactate 6.0 H* Vent Mode Prvc Mechanical Rate 16 FiO2 100.0 Tidal Volume 500 PEEP 5 Crit Value Called To T deshawn do Crit Value Called By [facility] case coordinator Crit Value Read Back Y Blood Gas Notified Time 1200 Sodium 158.0 H Potassium Chloride 131.0 H Carbon Dioxide Anion Gap BUN Creatinine Est GFR ( Amer) Est GFR (Non-Af Amer) POC Glucose (mg/dL) Random Glucose Hemoglobin A1c Calcium Phosphorus Magnesium Iron TIBC % Saturation Transferrin Ferritin Total Bilirubin AST ALT Alkaline Phosphatase Total Creatine Kinase CK-MB (Mass) Troponin I NT-Pro-B Natriuret Pep Total Protein Albumin Globulin Albumin/Globulin Ratio Triglycerides Cholesterol LDL Cholesterol Direct HDL Cholesterol Vitamin B12 Folate Arterial Blood Potassium 1.2 L* Urine Color Urine Clarity Urine pH Ur Specific Meeker Urine Protein Urine Glucose (UA) Urine Ketones Urine Blood Urine Nitrate Urine Bilirubin Urine Urobilinogen Ur Leukocyte Esterase Urine WBC (Auto) Urine RBC (Auto) Ur Squamous Epith Cells Urine Bacteria Blood Type A POSITIVE Antibody Screen Negative 07/23/18 07/23/18 07/23/18 14:44 14:44 16:40 WBC RBC Hgb Hct MCV MCH MCHC RDW Plt Count MPV Neut % (Auto) Lymph % (Auto) Eddy % (Auto) Eos % (Auto) Baso % (Auto) Neut # (Auto) Lymph # (Auto) Eddy # (Auto) Eos # (Auto) Baso # (Auto) Neutrophils % (Manual) Band Neutrophils % Lymphocytes % (Manual) Monocytes % (Manual) Nucleated RBC % Differential Comment Platelet Estimate Large Platelets Giant Platelets Polychromasia Hypochromasia (manual) Poikilocytosis (manual Anisocytosis (manual) Ovalocytes Schistocytes Retic Count PT INR APTT Puncture Site pCO2 pO2 HCO3 ABG pH ABG Total CO2 ABG O2 Saturation ABG Base Excess Cruz Test ABG Potassium A-a O2 Difference Respiratory Index Glucose Lactate Vent Mode Mechanical Rate FiO2 Tidal Volume PEEP Crit Value Called To Crit Value Called By Crit Value Read Back Blood Gas Notified Time Sodium 138 Potassium 3.5 L Chloride 92 L Carbon Dioxide 25 Anion Gap 24 H BUN 18 Creatinine 7.9 H* Est GFR ( Amer) 8 Est GFR (Non-Af Amer) 7 POC Glucose (mg/dL) Random Glucose 282 H Hemoglobin A1c Calcium 9.4 Phosphorus 4.0 Magnesium 2.4 H Iron TIBC % Saturation Transferrin Ferritin Total Bilirubin 0.7 AST 527 H D ALT 446 H D Alkaline Phosphatase 74 Total Creatine Kinase 3962 H CK-MB (Mass) 103 H Troponin I 61.5000 H* NT-Pro-B Natriuret Pep Total Protein 7.5 Albumin 4.5 Globulin 3.0 Albumin/Globulin Ratio 1.5 Triglycerides Cholesterol LDL Cholesterol Direct HDL Cholesterol Vitamin B12 Folate Arterial Blood Potassium Urine Color Yellow Urine Clarity Hazy Urine pH 5.0 Ur Specific Meeker 1.023 Urine Protein 1+ H Urine Glucose (UA) Normal Urine Ketones Negative Urine Blood Negative Urine Nitrate Negative Urine Bilirubin Negative Urine Urobilinogen Normal Ur Leukocyte Esterase Neg Urine WBC (Auto) 2 Urine RBC (Auto) 3 Ur Squamous Epith Cells < 1 Urine Bacteria Rare Blood Type Antibody Screen 07/23/18 07/23/18 07/23/18 19:30 22:15 22:15 WBC 20.8 H RBC 3.36 L Hgb 9.5 L Hct 31.0 L MCV 92.4 D MCH 28.2 MCHC 30.6 L RDW 17.0 H Plt Count 181 MPV 9.2 Neut % (Auto) 91.2 H Lymph % (Auto) 3.8 L Eddy % (Auto) 4.8 Eos % (Auto) 0.1 Baso % (Auto) 0.1 Neut # (Auto) 18.9 H Lymph # (Auto) 0.8 L Eddy # (Auto) 1.0 H Eos # (Auto) 0.0 Baso # (Auto) 0.0 Neutrophils % (Manual) 88 H Band Neutrophils % 5 H Lymphocytes % (Manual) 2 L Monocytes % (Manual) 5 Nucleated RBC % Differential Comment Platelet Estimate Normal Large Platelets Giant Platelets Polychromasia Hypochromasia (manual) Poikilocytosis (manual Anisocytosis (manual) Ovalocytes Schistocytes Retic Count PT 13.7 H INR 1.3 APTT 40 H D Puncture Site Rba pCO2 43 pO2 285 H HCO3 15.3 L ABG pH 7.17 L* ABG Total CO2 17.0 L ABG O2 Saturation 99.5 H ABG Base Excess -12.4 L Cruz Test Pos ABG Potassium 3.7 A-a O2 Difference 374.0 Respiratory Index 1.3 Glucose 247 H Lactate 15.6 H* Vent Mode Prvc Mechanical Rate 20 FiO2 100.0 Tidal Volume 500 PEEP 5 Crit Value Called To Dr nuñez Crit Value Called By [facility] Crit Value Read Back Y Blood Gas Notified Time 1934 Sodium 142.0 Potassium Chloride 100.0 Carbon Dioxide Anion Gap BUN Creatinine Est GFR ( Amer) Est GFR (Non-Af Amer) POC Glucose (mg/dL) Random Glucose Hemoglobin A1c Calcium Phosphorus Magnesium Iron TIBC % Saturation Transferrin Ferritin Total Bilirubin AST ALT Alkaline Phosphatase Total Creatine Kinase CK-MB (Mass) Troponin I NT-Pro-B Natriuret Pep Total Protein Albumin Globulin Albumin/Globulin Ratio Triglycerides Cholesterol LDL Cholesterol Direct HDL Cholesterol Vitamin B12 Folate Arterial Blood Potassium 3.7 Urine Color Urine Clarity Urine pH Ur Specific Meeker Urine Protein Urine Glucose (UA) Urine Ketones Urine Blood Urine Nitrate Urine Bilirubin Urine Urobilinogen Ur Leukocyte Esterase Urine WBC (Auto) Urine RBC (Auto) Ur Squamous Epith Cells Urine Bacteria Blood Type Antibody Screen 07/23/18 07/23/18 07/24/18 22:15 22:15 00:04 WBC RBC Hgb Hct MCV MCH MCHC RDW Plt Count MPV Neut % (Auto) Lymph % (Auto) Eddy % (Auto) Eos % (Auto) Baso % (Auto) Neut # (Auto) Lymph # (Auto) Eddy # (Auto) Eos # (Auto) Baso # (Auto) Neutrophils % (Manual) Band Neutrophils % Lymphocytes % (Manual) Monocytes % (Manual) Nucleated RBC % Differential Comment Platelet Estimate Large Platelets Giant Platelets Polychromasia Hypochromasia (manual) Poikilocytosis (manual Anisocytosis (manual) Ovalocytes Schistocytes Retic Count PT INR APTT Puncture Site pCO2 pO2 HCO3 ABG pH ABG Total CO2 ABG O2 Saturation ABG Base Excess Cruz Test ABG Potassium A-a O2 Difference Respiratory Index Glucose Lactate Vent Mode Mechanical Rate FiO2 Tidal Volume PEEP Crit Value Called To Crit Value Called By Crit Value Read Back Blood Gas Notified Time Sodium 140 Potassium 3.4 L Chloride 93 L Carbon Dioxide 19 L Anion Gap 30 H BUN 21 H Creatinine 8.7 H* Est GFR ( Amer) 8 Est GFR (Non-Af Amer) 6 POC Glucose (mg/dL) 260 H Random Glucose 240 H Hemoglobin A1c Calcium 9.1 Phosphorus 6.9 H Magnesium 2.6 H Iron TIBC % Saturation Transferrin Ferritin Total Bilirubin AST ALT Alkaline Phosphatase Total Creatine Kinase 5933 H CK-MB (Mass) 168 H Troponin I 107.0000 H* NT-Pro-B Natriuret Pep Total Protein Albumin Globulin Albumin/Globulin Ratio Triglycerides Cholesterol LDL Cholesterol Direct HDL Cholesterol Vitamin B12 Folate Arterial Blood Potassium Urine Color Urine Clarity Urine pH Ur Specific Meeker Urine Protein Urine Glucose (UA) Urine Ketones Urine Blood Urine Nitrate Urine Bilirubin Urine Urobilinogen Ur Leukocyte Esterase Urine WBC (Auto) Urine RBC (Auto) Ur Squamous Epith Cells Urine Bacteria Blood Type Antibody Screen 07/24/18 07/24/18 07/24/18 01:13 02:20 03:47 WBC RBC Hgb Hct MCV MCH MCHC RDW Plt Count MPV Neut % (Auto) Lymph % (Auto) Eddy % (Auto) Eos % (Auto) Baso % (Auto) Neut # (Auto) Lymph # (Auto) Eddy # (Auto) Eos # (Auto) Baso # (Auto) Neutrophils % (Manual) Band Neutrophils % Lymphocytes % (Manual) Monocytes % (Manual) Nucleated RBC % Differential Comment Platelet Estimate Large Platelets Giant Platelets Polychromasia Hypochromasia (manual) Poikilocytosis (manual Anisocytosis (manual) Ovalocytes Schistocytes Retic Count PT INR APTT Puncture Site pCO2 pO2 HCO3 ABG pH ABG Total CO2 ABG O2 Saturation ABG Base Excess Cruz Test ABG Potassium A-a O2 Difference Respiratory Index Glucose Lactate Vent Mode Mechanical Rate FiO2 Tidal Volume PEEP Crit Value Called To Crit Value Called By Crit Value Read Back Blood Gas Notified Time Sodium Potassium Chloride Carbon Dioxide Anion Gap BUN Creatinine Est GFR ( Amer) Est GFR (Non-Af Amer) POC Glucose (mg/dL) 253 H 231 H 199 H Random Glucose Hemoglobin A1c Calcium Phosphorus Magnesium Iron TIBC % Saturation Transferrin Ferritin Total Bilirubin AST ALT Alkaline Phosphatase Total Creatine Kinase CK-MB (Mass) Troponin I NT-Pro-B Natriuret Pep Total Protein Albumin Globulin Albumin/Globulin Ratio Triglycerides Cholesterol LDL Cholesterol Direct HDL Cholesterol Vitamin B12 Folate Arterial Blood Potassium Urine Color Urine Clarity Urine pH Ur Specific Meeker Urine Protein Urine Glucose (UA) Urine Ketones Urine Blood Urine Nitrate Urine Bilirubin Urine Urobilinogen Ur Leukocyte Esterase Urine WBC (Auto) Urine RBC (Auto) Ur Squamous Epith Cells Urine Bacteria Blood Type Antibody Screen 07/24/18 07/24/18 07/24/18 04:40 05:13 05:50 WBC RBC Hgb Hct MCV MCH MCHC RDW Plt Count MPV Neut % (Auto) Lymph % (Auto) Eddy % (Auto) Eos % (Auto) Baso % (Auto) Neut # (Auto) Lymph # (Auto) Eddy # (Auto) Eos # (Auto) Baso # (Auto) Neutrophils % (Manual) Band Neutrophils % Lymphocytes % (Manual) Monocytes % (Manual) Nucleated RBC % Differential Comment Platelet Estimate Large Platelets Giant Platelets Polychromasia Hypochromasia (manual) Poikilocytosis (manual Anisocytosis (manual) Ovalocytes Schistocytes Retic Count PT INR APTT Puncture Site R brac pCO2 36 pO2 290 H HCO3 14.8 L ABG pH 7.20 L ABG Total CO2 15.2 L ABG O2 Saturation 99.7 H ABG Base Excess -13.1 L Cruz Test Na ABG Potassium 4.1 A-a O2 Difference 164.0 Respiratory Index 0.6 Glucose 131 H Lactate 17.6 H* Vent Mode Prvc Mechanical Rate 24 FiO2 70.0 Tidal Volume 500 PEEP 5 Crit Value Called To Polly simpson rn Crit Value Called By Grazyna hernandez rt Crit Value Read Back Y Blood Gas Notified Time 615 Sodium 141.0 140 Potassium 3.5 L Chloride 99.0 91 L Carbon Dioxide 27 Anion Gap 25 H BUN 26 H Creatinine 8.9 H* Est GFR ( Amer) 7 Est GFR (Non-Af Amer) 6 POC Glucose (mg/dL) 151 H Random Glucose 134 H D Hemoglobin A1c Calcium 8.8 Phosphorus 5.7 H Magnesium 2.4 H Iron TIBC % Saturation Transferrin Ferritin 8070.0 Total Bilirubin 0.5 AST 590 H ALT 377 H Alkaline Phosphatase 64 Total Creatine Kinase CK-MB (Mass) Troponin I NT-Pro-B Natriuret Pep Total Protein 7.3 Albumin 4.4 Globulin 2.9 Albumin/Globulin Ratio 1.5 Triglycerides 274 H Cholesterol 142 LDL Cholesterol Direct 63 HDL Cholesterol 23 L Vitamin B12 781 Folate 6.3 Arterial Blood Potassium 4.1 Urine Color Urine Clarity Urine pH Ur Specific Meeker Urine Protein Urine Glucose (UA) Urine Ketones Urine Blood Urine Nitrate Urine Bilirubin Urine Urobilinogen Ur Leukocyte Esterase Urine WBC (Auto) Urine RBC (Auto) Ur Squamous Epith Cells Urine Bacteria Blood Type Antibody Screen 07/24/18 07/24/18 07/24/18 05:50 05:50 05:51 WBC 19.6 H RBC 3.42 L Hgb 9.6 L Hct 30.7 L MCV 89.9 D MCH 28.1 MCHC 31.2 L RDW 17.0 H Plt Count 183 MPV 9.0 Neut % (Auto) 87.7 H Lymph % (Auto) 7.2 L Eddy % (Auto) 5.0 Eos % (Auto) 0.0 Baso % (Auto) 0.1 Neut # (Auto) 17.2 H Lymph # (Auto) 1.4 Eddy # (Auto) 1.0 H Eos # (Auto) 0.0 Baso # (Auto) 0.0 Neutrophils % (Manual) 74 Band Neutrophils % 11 H* Lymphocytes % (Manual) 8 L Monocytes % (Manual) 7 Nucleated RBC % 1 H Differential Comment Platelet Estimate Normal Large Platelets Present Giant Platelets Present Polychromasia Hypochromasia (manual) Slight Poikilocytosis (manual Slight Anisocytosis (manual) Slight Ovalocytes Moderate Schistocytes Slight Retic Count PT INR APTT Puncture Site pCO2 pO2 HCO3 ABG pH ABG Total CO2 ABG O2 Saturation ABG Base Excess Cruz Test ABG Potassium A-a O2 Difference Respiratory Index Glucose Lactate Vent Mode Mechanical Rate FiO2 Tidal Volume PEEP Crit Value Called To Crit Value Called By Crit Value Read Back Blood Gas Notified Time Sodium Potassium Chloride Carbon Dioxide Anion Gap BUN Creatinine Est GFR ( Amer) Est GFR (Non-Af Amer) POC Glucose (mg/dL) Random Glucose Hemoglobin A1c Calcium Phosphorus Magnesium Iron 46 L TIBC 210 L % Saturation 22 Transferrin 150.39 L Ferritin Total Bilirubin AST ALT Alkaline Phosphatase Total Creatine Kinase CK-MB (Mass) Troponin I NT-Pro-B Natriuret Pep Total Protein Albumin Globulin Albumin/Globulin Ratio Triglycerides Cholesterol LDL Cholesterol Direct HDL Cholesterol Vitamin B12 Folate Arterial Blood Potassium Urine Color Urine Clarity Urine pH Ur Specific Me[place] Urine Protein Urine Glucose (UA) Urine Ketones Urine Blood Urine Nitrate Urine Bilirubin Urine Urobilinogen Ur Leukocyte Esterase Urine WBC (Auto) Urine RBC (Auto) Ur Squamous Epith Cells Urine Bacteria Blood Type Antibody Screen 07/24/18 07/24/18 07/24/18 05:51 05:51 05:51 WBC RBC Hgb Hct MCV MCH MCHC RDW Plt Count MPV Neut % (Auto) Lymph % (Auto) Eddy % (Auto) Eos % (Auto) Baso % (Auto) Neut # (Auto) Lymph # (Auto) Eddy # (Auto) Eos # (Auto) Baso # (Auto) Neutrophils % (Manual) Band Neutrophils % Lymphocytes % (Manual) Monocytes % (Manual) Nucleated RBC % Differential Comment Platelet Estimate Large Platelets Giant Platelets Polychromasia Hypochromasia (manual) Poikilocytosis (manual Anisocytosis (manual) Ovalocytes Schistocytes Retic Count 1.8 H PT INR APTT 41 H Puncture Site pCO2 pO2 HCO3 ABG pH ABG Total CO2 ABG O2 Saturation ABG Base Excess Cruz Test ABG Potassium A-a O2 Difference Respiratory Index Glucose Lactate Vent Mode Mechanical Rate FiO2 Tidal Volume PEEP Crit Value Called To Crit Value Called By Crit Value Read Back Blood Gas Notified Time Sodium Potassium Chloride Carbon Dioxide Anion Gap BUN Creatinine Est GFR ( Amer) Est GFR (Non-Af Amer) POC Glucose (mg/dL) Random Glucose Hemoglobin A1c 6.2 Calcium Phosphorus Magnesium Iron TIBC % Saturation Transferrin Ferritin Total Bilirubin AST ALT Alkaline Phosphatase Total Creatine Kinase CK-MB (Mass) Troponin I NT-Pro-B Natriuret Pep Total Protein Albumin Globulin Albumin/Globulin Ratio Triglycerides Cholesterol LDL Cholesterol Direct HDL Cholesterol Vitamin B12 Folate Arterial Blood Potassium Urine Color Urine Clarity Urine pH Ur Specific Meeker Urine Protein Urine Glucose (UA) Urine Ketones Urine Blood Urine Nitrate Urine Bilirubin Urine Urobilinogen Ur Leukocyte Esterase Urine WBC (Auto) Urine RBC (Auto) Ur Squamous Epith Cells Urine Bacteria Blood Type Antibody Screen Assessment & Plan (1) Cardiac arrest Status: Acute (2) CKD (chronic kidney disease) requiring chronic dialysis Status: Acute
[2018-07-24 10:24] LABS: ABG ALLEN TEST PO; ARTERIAL BLOOD GAS HCO3 8.8 mmol/L (21-28); ARTERIAL BLOOD GAS O2 SAT 99.9 % (95-98); ARTERIAL BLOOD GAS PCO2 39 mm/Hg (35-45); ARTERIAL BLOOD GAS PH 7.01 (7.35-7.45); ARTERIAL BLOOD GAS PO2 260 mm/Hg (80-100)
--- NOTE | 2018-07-24 10:25 | CP.PCM.PN ---
<Momo Hsu - Last Filed: 07/24/18 10:20> Subjective - Date & Time of Evaluation Date of Evaluation: 07/24/18 Time of Evaluation: 10:20 - Subjective Subjective: Code Blue was called at 9:57 for pulselessness. Pt currently intubated. CPR was initiated. Total of 1x atropine and 1x epinephrine were given during resuscitation. ROSC was achieved at 10:00. Rhythm changed from asystole to sinus rhythm. Pt placed on epi drip. Stat ABG ordered. Dr. Pisano, attending physician, present at bedside for duration of Code Blue. Updated pt's at bedside with current clinical status. Palliative care consult placed, recs appreciated. Pt currently Full Code status. Objective - Vital Signs/Intake and Output Vital Signs (last 24 hours): Temp Pulse Resp BP Pulse Ox 91.6 F L 79 14 99/28 L 90 L 07/24/18 08:00 07/24/18 09:00 07/24/18 09:00 07/24/18 09:48 07/24/18 08:29 Intake and Output: 07/24/18 07/24/18 06:59 18:59 Intake Total 2286.1 1836.4 Output Total 400 0 Balance 1886.1 1836.4 - Medications Medications: Current Medications Albuterol/Ipratropium (Duoneb 3 Mg/0.5 Mg (3 Ml) Ud) 3 ml INH RQ4 [facility] Last Admin: 07/24/18 07:44 Dose: 3 ml Artificial Tears (Lacri-Lube) 1 gm OU Q4H [facility] Calcium Acetate (Phoslo) 667 mg PO DAILY [facility] Last Admin: 07/24/18 09:13 Dose: Not Given Ezetimibe (Zetia) 10 mg PO HS [facility] Last Admin: 07/23/18 21:44 Dose: Not Given Famotidine (Pepcid) 20 mg PO DAILY [facility] Last Admin: 07/24/18 09:13 Dose: Not Given Gabapentin (Neurontin) 100 mg PO HS [facility] Last Admin: 07/23/18 21:44 Dose: Not Given Heparin Sodium (Porcine) (Heparin) 5,000 units SC Q8 [facility] Last Admin: 07/24/18 05:48 Dose: 5,000 units Home Med (Patient's Own Medication) 1 tab PO DAILY [facility] Norepinephrine Bitartrate 4 mg (/ Sodium Chloride) 254 mls @ 15.24 mls/hr IV .[id number] PRN; Protocol PRN Reason: TITRATE PER MD ORDER Last Admin: 07/24/18 09:12 Dose: 10 mcg/min, 38.1 mls/hr Dopamine HCl/Dextrose (Dopamine 400mg/250ml D5w) 400 mg in 250 mls @ 7.032 mls/hr IV .Q24H PRN; Protocol PRN Reason: TITRATE PER MD ORDER Last Admin: 07/24/18 08:50 Dose: 20 mcg/kg/min, 70.319 mls/hr Vasopressin 40 units/ Dextrose 42 mls @ 0.63 mls/hr IV .Q24H [facility]; Protocol Last Admin: 07/24/18 09:48 Dose: 0.01 units/min, 0.63 mls/hr Sodium Bicarbonate 150 meq/ (Dextrose) 1,150 mls @ 60 mls/hr IV .[id number] [facility] Last Admin: 07/24/18 08:15 Dose: 60 mls/hr Epinephrine HCl 1 mg/ Sodium (Chloride) 251 mls @ 15.06 mls/hr IV .[id number] PRN; Protocol PRN Reason: TITRATE PER MD ORDER Last Admin: 07/24/18 10:14 Dose: 3 mcg/min, 45.18 mls/hr Vancomycin HCl (Vancomycin 1gm In Normal Saline Addvantage) 1 gm in 250 mls @ 167 mls/hr IVPB ONCE ONE; Protocol Stop: 07/24/18 11:59 Gentamicin Sulfate 80 mg/ (Sodium Chloride) 102 mls @ 100 mls/hr IVPB ONCE ONE; Protocol Stop: 07/24/18 12:01 Cefepime HCl (Maxipime Iv 1 Gm Premix) 1 gm in 50 mls @ 100 mls/hr IVPB Q24H [facility]; Protocol Insulin Human Regular (Novolin R) 0 unit SC Q1H [facility]; Protocol Last Admin: 07/24/18 08:16 Dose: Not Given Meperidine HCl (Demerol) 25 mg IVP Q30M PRN PRN Reason: Rigors Potassium Chloride (Potassium Chloride Oral Soln) 20 meq PO DAILY [facility] Last Admin: 07/24/18 09:14 Dose: Not Given Raltegravir (Isentress) 400 mg PO Q12H [facility]; Protocol - Labs Labs: 07/24/18 05:51 07/24/18 05:50 PT 13.7 SECONDS (9.7-12.2) H 07/23/18 22:15 INR 1.3 07/23/18 22:15 APTT 41 SECONDS (21-34) H 07/24/18 05:51 <Dante Pisano - Last Filed: 07/24/18 17:37> Objective - Vital Signs/Intake and Output Vital Signs (last 24 hours): Temp Pulse Resp BP Pulse Ox 91.6 F L 84 24 73/51 L 19 L 07/24/18 08:00 07/24/18 16:34 07/24/18 16:34 07/24/18 16:42 07/24/18 16:34 Intake and Output: 07/24/18 07/24/18 06:59 18:59 Intake Total 2286.1 4352.7 Output Total 400 0 Balance 1886.1 4352.7 - Medications Medications: Current Medications Albuterol/Ipratropium (Duoneb 3 Mg/0.5 Mg (3 Ml) Ud) 3 ml INH RQ4 [facility] Last Admin: 07/24/18 12:53 Dose: Not Given Artificial Tears (Lacri-Lube) 1 gm OU Q4H [facility] Last Admin: 07/24/18 12:13 Dose: 1 gm Calcium Acetate (Phoslo) 667 mg PO DAILY [facility] Last Admin: 07/24/18 09:13 Dose: Not Given Ezetimibe (Zetia) 10 mg PO HS [facility] Last Admin: 07/23/18 21:44 Dose: Not Given Famotidine (Pepcid) 20 mg PO DAILY [facility] Last Admin: 07/24/18 09:13 Dose: Not Given Gabapentin (Neurontin) 100 mg PO HS [facility] Last Admin: 07/23/18 21:44 Dose: Not Given Heparin Sodium (Porcine) (Heparin) 5,000 units SC Q8 [facility] Last Admin: 07/24/18 16:45 Dose: Not Given Home Med (Patient's Own Medication) 1 tab PO DAILY [facility] Norepinephrine Bitartrate 4 mg (/ Sodium Chloride) 254 mls @ 15.24 mls/hr IV .[id number] PRN; Protocol PRN Reason: TITRATE PER MD ORDER Last Admin: 07/24/18 14:16 Dose: 10 mcg/min, 38.1 mls/hr Dopamine HCl/Dextrose (Dopamine 400mg/250ml D5w) 400 mg in 250 mls @ 7.032 mls/hr IV .Q24H PRN; Protocol PRN Reason: TITRATE PER MD ORDER Last Admin: 07/24/18 16:42 Dose: 20 mcg/kg/min, 70.319 mls/hr Vasopressin 40 units/ Dextrose 42 mls @ 0.63 mls/hr IV .Q24H [facility]; Protocol Last Admin: 07/24/18 09:48 Dose: 0.01 units/min, 0.63 mls/hr Sodium Bicarbonate 150 meq/ (Dextrose) 1,150 mls @ 60 mls/hr IV .[id number] [facility] Last Admin: 07/24/18 08:15 Dose: 60 mls/hr Epinephrine HCl 1 mg/ Sodium (Chloride) 251 mls @ 15.06 mls/hr IV .[id number] PRN; Protocol PRN Reason: TITRATE PER MD ORDER Last Titration: 07/24/18 11:00 Dose: 1 mcg/min, 15.06 mls/hr Cefepime HCl (Maxipime Iv 1 Gm Premix) 1 gm in 50 mls @ 100 mls/hr IVPB Q24H [facility] ; Protocol Last Admin: 07/24/18 12:12 Dose: 100 mls/hr Insulin Human Regular (Novolin R) 0 unit SC Q1H [facility]; Protocol Last Admin: 07/24/18 12:14 Dose: Not Given Meperidine HCl (Demerol) 25 mg IVP Q30M PRN PRN Reason: Rigors Potassium Chloride (Potassium Chloride Oral Soln) 20 meq PO DAILY [facility] Last Admin: 07/24/18 09:14 Dose: Not Given Raltegravir (Isentress) 400 mg PO Q12H [facility]; Protocol - Labs Labs: 07/24/18 05:51 07/24/18 05:50 PT 13.7 SECONDS (9.7-12.2) H 07/23/18 22:15 INR 1.3 07/23/18 22:15 APTT 41 SECONDS (21-34) H 07/24/18 05:51 Attending/Attestation - Attestation I have personally seen and examined this patient.: Yes I have fully participated in the care of the patient.: Yes I have reviewed all pertinent clinical information, including history, physical exam and plan: Yes Notes (Text): 07/24/18 17:36 Patient seen and examined in the intensive care unit. Intubated on ventilatory support with no response to stimuli Status post cardiac arrest and code freeze Patient had a brief arrest in the ICU x2 status post resuscitation On multiple pressors signed DNR Prognosis poor
[2018-07-24] MEDS ORDERED: Vancomycin 1 GM 1 GM/250 ML BAG IVPB ONE (10:30)
[2018-07-24] MEDS ORDERED: Cefepime IV 1 gm in Dextrose 1 GM/50 ML BAG IVPB SCH (11:00)
--- NOTE | 2018-07-24 12:20 | CP.PCM.CON ---
History of Present Illness - History of Present Illness History of Present Illness: Palliative consult requested for goals of care discussion re poor prognosis Patient is a 63 yo male admitted from HD S/P cardiac arrest. Patient was eating protein bar when he arrested. No pulses were detected.Epi X 6 given by EMS plus patient was shocked X 1 and intubated on the field. Upon arrival to ED CPR was still in progress. Upon arrival patient diagnosed with metabolic and respiratory acidosis. Lactate 17.6. BiCarbs drip on board. Troponins elevated X 2. Since admission patient Coded X 5. Last Code Blue was around 10 am this morning. Prognosis is seen as grave. Palliative care is consulted to support patient's significant other during this difficult time and assist with decision making. PMH: DM, ESRD on HD, HDL Soc. Hx: parents , has no family member, single, lives with significant other Mr. Cheo Mcmullen for the last 30 years Fam. Hx: unknown Review of Systems - Review of Systems All systems: reviewed and no additional remarkable complaints except Review of Systems: ROS unobtainable from patient due to acuity of condition. Per nursing patient is on double pressors for BP support. Past Patient History - Past Medical History & Family History Past Medical History?: Yes - Past Social History Smoking Status: Unknown If Ever Smoked - CARDIAC Hx Hypercholesterolemia: Yes Hx Hypertension: Yes Other/Comment: Hx of CAD, coronary stents x 3 - placed in 2018 - PULMONARY Hx Respiratory Disorders: No - NEUROLOGICAL Hx Neurological Disorder: No - HEENT Hx Blind: Yes (Both eyes) - RENAL Hx Chronic Kidney Disease: Yes Hx Dialysis: Yes (Started in June 2017) Type of Dialysis Access: Left arm fistula Date of Last Dialysis Treatment: 07/23/18 - ENDOCRINE/METABOLIC Hx Diabetes Mellitus Type 2: Yes - HEMATOLOGICAL/ONCOLOGICAL Hx Human Immunodeficiency Virus (HIV): Yes - INTEGUMENTARY Hx Dermatological Problems: No - MUSCULOSKELETAL/RHEUMATOLOGICAL Hx Musculoskeletal Disorders: No Hx Falls: No - GASTROINTESTINAL Hx Gastrointestinal Disorders: No - GENITOURINARY/GYNECOLOGICAL Hx Genitourinary Disorders: No - PSYCHIATRIC Hx Substance Use: No (UNKNOWN) - SURGICAL HISTORY Hx Surgeries: (UNKNOWN) - ANESTHESIA Hx Anesthesia: No (UNKNOWN) Meds Allergies/Adverse Reactions: Allergies Allergy/AdvReac Type Severity Reaction Status Date / Time Peanut butter Allergy RASH Uncoded 07/23/18 19:34 - Medications Medications: Current Medications Albuterol/Ipratropium (Duoneb 3 Mg/0.5 Mg (3 Ml) Ud) 3 ml INH RQ4 [facility] Last Admin: 07/24/18 07:44 Dose: 3 ml Artificial Tears (Lacri-Lube) 1 gm OU Q4H [facility] Last Admin: 07/24/18 08:00 Dose: 1 gm Calcium Acetate (Phoslo) 667 mg PO DAILY [facility] Last Admin: 07/24/18 09:13 Dose: Not Given Ezetimibe (Zetia) 10 mg PO HS [facility] Last Admin: 07/23/18 21:44 Dose: Not Given Famotidine (Pepcid) 20 mg PO DAILY [facility] Last Admin: 07/24/18 09:13 Dose: Not Given Gabapentin (Neurontin) 100 mg PO HS [facility] Last Admin: 07/23/18 21:44 Dose: Not Given Heparin Sodium (Porcine) (Heparin) 5,000 units SC Q8 [facility] Last Admin: 07/24/18 05:48 Dose: 5,000 units Home Med (Patient's Own Medication) 1 tab PO DAILY [facility] Norepinephrine Bitartrate 4 mg (/ Sodium Chloride) 254 mls @ 15.24 mls/hr IV .[id number] PRN; Protocol PRN Reason: TITRATE PER MD ORDER Last Admin: 07/24/18 09:12 Dose: 10 mcg/min, 38.1 mls/hr Dopamine HCl/Dextrose (Dopamine 400mg/250ml D5w) 400 mg in 250 mls @ 7.032 m ls/hr IV .Q24H PRN; Protocol PRN Reason: TITRATE PER MD ORDER Last Admin: 07/24/18 08:50 Dose: 20 mcg/kg/min, 70.319 mls/hr Vasopressin 40 units/ Dextrose 42 mls @ 0.63 mls/hr IV .Q24H [facility]; Protocol Last Admin: 07/24/18 09:48 Dose: 0.01 units/min, 0.63 mls/hr Sodium Bicarbonate 150 meq/ (Dextrose) 1,150 mls @ 60 mls/hr IV .[id number] [facility] Last Admin: 07/24/18 08:15 Dose: 60 mls/hr Epinephrine HCl 1 mg/ Sodium (Chloride) 251 mls @ 15.06 mls/hr IV .[id number] PRN; Protocol PRN Reason: TITRATE PER MD ORDER Last Admin: 07/24/18 10:14 Dose: 3 mcg/min, 45.18 mls/hr Cefepime HCl (Maxipime Iv 1 Gm Premix) 1 gm in 50 mls @ 100 mls/hr IVPB Q24H [facility]; Protocol Insulin Human Regular (Novolin R) 0 unit SC Q1H [facility]; Protocol Last Admin: 07/24/18 10:33 Dose: Not Given Meperidine HCl (Demerol) 25 mg IVP Q30M PRN PRN Reason: Rigors Potassium Chloride (Potassium Chloride Oral Soln) 20 meq PO DAILY [facility] Last Admin: 07/24/18 09:14 Dose: Not Given Raltegravir (Isentress) 400 mg PO Q12H [facility]; Protocol Physical Exam - Constitutional Appears: In Acute Distress - Head Exam Head Exam: ATRAUMATIC, NORMAL INSPECTION, NORMOCEPHALIC - Eye Exam Eye Exam: Normal appearance Pupil Exam: Fixed - ENT Exam Additional comments: ETT, NGT drainage bloody - Neck Exam Neck exam: Positive for: Normal Inspection - Respiratory Exam Additional comments: On MV, no spontaneous breaths - Cardiovascular Exam Cardiovascular Exam: Tachycardia, Irregular Rhythm - GI/Abdominal Exam GI & Abdominal Exam: Distended, Hypoactive Bowel Sounds - Rectal Exam Rectal Exam: Deferred - Exam Additional comments: Herron cath in - Extremities Exam Extremities exam: Positive for: pedal edema - Back Exam Back exam: NORMAL INSPECTION - Neurological Exam Neurological exam: Motor Sensory Deficit - Psychiatric Exam Psychiatric exam: Flat Affect - Skin Skin Exam: Diaphoretic, Intact Results - Vital Signs Recent Vital Signs: Last Vital Signs Temp 91.6 F L 07/24/18 08:00 Pulse 86 07/24/18 11:19 Resp 16 07/24/18 11:19 BP 162/96 H 07/24/18 11:19 Pulse Ox 96 07/24/18 11:04 - Labs Result Diagrams: 07/24/18 05:51 07/24/18 05:50 Labs: Laboratory Results - last 24 hr 07/23/18 07/23/18 07/23/18 11:04 11:26 14:44 WBC 15.2 H RBC 3.59 L Hgb 10.1 L Hct 32.1 L MCV 89.3 D MCH 28.1 MCHC 31.5 L RDW 17.0 H Plt Count 178 MPV 8.8 Neut % (Auto) 84.4 H Lymph % (Auto) 7.4 L [place] % (Auto) 7.7 Eos % (Auto) 0.2 Baso % (Auto) 0.3 Neut # (Auto) 12.9 H Lymph # (Auto) 1.1 [place] # (Auto) 1.2 H Eos # (Auto) 0.0 Baso # (Auto) 0.0 Neutrophils % (Manual) 88 H Band Neutrophils % 2 Lymphocytes % (Manual) 7 L Monocytes % (Manual) 3 Nucleated RBC % Platelet Estimate Normal Large Platelets Giant Platelets Polychromasia Slight Hypochromasia (manual) Slight Poikilocytosis (manual Anisocytosis (manual) Slight Ovalocytes Slight Schistocytes Retic Count PT INR APTT Puncture Site pCO2 pO2 HCO3 ABG pH ABG Total CO2 ABG O2 Saturation ABG Base Excess Cruz Test ABG Potassium A-a O2 Difference Respiratory Index Glucose Lactate Vent Mode Mechanical Rate FiO2 Tidal Volume PEEP Crit Value Called To Crit Value Called By Crit Value Read Back Blood Gas Notified Time Sodium Potassium Chloride Carbon Dioxide Anion Gap BUN Creatinine Est GFR ( Amer) Est GFR (Non-Af Amer) POC Glucose (mg/dL) Random Glucose Hemoglobin A1c Calcium Phosphorus Magnesium Iron TIBC % Saturation Transferrin Ferritin Total Bilirubin AST ALT Alkaline Phosphatase Total Creatine Kinase CK-MB (Mass) Troponin I 0.2240 H* Total Protein Albumin Globulin Albumin/Globulin Ratio Triglycerides Cholesterol LDL Cholesterol Direct HDL Cholesterol Vitamin B12 Folate Arterial Blood Potassium Urine Color Urine Clarity Urine pH Ur Specific [place] Urine Protein Urine Glucose (UA) Urine Ketones Urine Blood Urine Nitrate Urine Bilirubin Urine Urobilinogen Ur Leukocyte Esterase Urine WBC (Auto) Urine RBC (Auto) Ur Squamous Epith Cells Urine Bacteria Influenza Typ A,B (EIA) Blood Type A POSITIVE Antibody Screen Negative 07/23/18 07/23/18 07/23/18 14:44 14:44 16:40 WBC RBC Hgb Hct MCV MCH MCHC RDW Plt Count MPV Neut % (Auto) Lymph % (Auto) [place] % (Auto) Eos % (Auto) Baso % (Auto) Neut # (Auto) Lymph # (Auto) [place] # (Auto) Eos # (Auto) Baso # (Auto) Neutrophils % (Manual) Band Neutrophils % Lymphocytes % (Manual) Monocytes % (Manual) Nucleated RBC % Platelet Estimate Large Platelets Giant Platelets Polychromasia Hypochromasia (manual) Poikilocytosis (manual Anisocytosis (manual) Ovalocytes Schistocytes Retic Count PT INR APTT Puncture Site pCO2 pO2 HCO3 ABG pH ABG Total CO2 ABG O2 Saturation ABG Base Excess Cruz Test ABG Potassium A-a O2 Difference Respiratory Index Glucose Lactate Vent Mode Mechanical Rate FiO2 Tidal Volume PEEP Crit Value Called To Crit Value Called By Crit Value Read Back Blood Gas Notified Time Sodium 138 Potassium 3.5 L Chloride 92 L Carbon Dioxide 25 Anion Gap 24 H BUN 18 Creatinine 7.9 H* Est GFR ( Amer) 8 Est GFR (Non-Af Amer) 7 POC Glucose (mg/dL) Random Glucose 282 H Hemoglobin A1c Calcium 9.4 Phosphorus 4.0 Magnesium 2.4 H Iron TIBC % Saturation Transferrin Ferritin Total Bilirubin 0.7 AST 527 H D ALT 446 H D Alkaline Phosphatase 74 Total Creatine Kinase 3962 H CK-MB (Mass) 103 H Troponin I 61.5000 H* Total Protein 7.5 Albumin 4.5 Globulin 3.0 Albumin/Globulin Ratio 1.5 Triglycerides Cholesterol LDL Cholesterol Direct HDL Cholesterol Vitamin B12 Folate Arterial Blood Potassium Urine Color Yellow Urine Clarity Hazy Urine pH 5.0 Ur Specific [place] 1.023 Urine Protein 1+ H Urine Glucose (UA) Normal Urine Ketones Negative Urine Blood Negative Urine Nitrate Negative Urine Bilirubin Negative Urine Urobilinogen Normal Ur Leukocyte Esterase Neg Urine WBC (Auto) 2 Urine RBC (Auto) 3 Ur Squamous Epith Cells < 1 Urine Bacteria Rare Influenza Typ A,B (EIA) Blood Type Antibody Screen 07/23/18 07/23/18 07/23/18 19:30 22:15 22:15 WBC 20.8 H RBC 3.36 L Hgb 9.5 L Hct 31.0 L MCV 92.4 D MCH 28.2 MCHC 30.6 L RDW 17.0 H Plt Count 181 MPV 9.2 Neut % (Auto) 91.2 H Lymph % (Auto) 3.8 L [place] % (Auto) 4.8 Eos % (Auto) 0.1 Baso % (Auto) 0.1 Neut # (Auto) 18.9 H Lymph # (Auto) 0.8 L [place] # (Auto) 1.0 H Eos # (Auto) 0.0 Baso # (Auto) 0.0 Neutrophils % (Manual) 88 H Band Neutrophils % 5 H Lymphocytes % (Manual) 2 L Monocytes % (Manual) 5 Nucleated RBC % Platelet Estimate Normal Large Platelets Giant Platelets Polychromasia Hypochromasia (manual) Poikilocytosis (manual Anisocytosis (manual) Ovalocytes Schistocytes Retic Count PT 13.7 H INR 1.3 APTT 40 H D Puncture Site Rba pCO2 43 pO2 285 H HCO3 15.3 L ABG pH 7.17 L* ABG Total CO2 17.0 L ABG O2 Saturation 99.5 H ABG Base Excess -12.4 L Cruz Test Pos ABG Potassium 3.7 A-a O2 Difference 374.0 Respiratory Index 1.3 Glucose 247 H Lactate 15.6 H* Vent Mode Prvc Mechanical Rate 20 FiO2 100.0 Tidal Volume 500 PEEP 5 Crit Value Called To Dr nuñez Crit Value Called By [facility] Crit Value Read Back Y Blood Gas Notified Time 1934 Sodium 142.0 Potassium Chloride 100.0 Carbon Dioxide Anion Gap BUN Creatinine Est GFR ( Amer) Est GFR (Non-Af Amer) POC Glucose (mg/dL) Random Glucose Hemoglobin A1c Calcium Phosphorus Magnesium Iron TIBC % Saturation Transferrin Ferritin Total Bilirubin AST ALT Alkaline Phosphatase Total Creatine Kinase CK-MB (Mass) Troponin I Total Protein Albumin Globulin Albumin/Globulin Ratio Triglycerides Cholesterol LDL Cholesterol Direct HDL Cholesterol Vitamin B12 Folate Arterial Blood Potassium 3.7 Urine Color Urine Clarity Urine pH Ur Specific [place] Urine Protein Urine Glucose (UA) Urine Ketones Urine Blood Urine Nitrate Urine Bilirubin Urine Urobilinogen Ur Leukocyte Esterase Urine WBC (Auto) Urine RBC (Auto) Ur Squamous Epith Cells Urine Bacteria Influenza Typ A,B (EIA) Blood Type Antibody Screen 07/23/18 07/23/18 07/24/18 22:15 22:15 00:04 WBC RBC Hgb Hct MCV MCH MCHC RDW Plt Count MPV Neut % (Auto) Lymph % (Auto) [place] % (Auto) Eos % (Auto) Baso % (Auto) Neut # (Auto) Lymph # (Auto) [place] # (Auto) Eos # (Auto) Baso # (Auto) Neutrophils % (Manual) Band Neutrophils % Lymphocytes % (Manual) Monocytes % (Manual) Nucleated RBC % Platelet Estimate Large Platelets Giant Platelets Polychromasia Hypochromasia (manual) Poikilocytosis (manual Anisocytosis (manual) Ovalocytes Schistocytes Retic Count PT INR APTT Puncture Site pCO2 pO2 HCO3 ABG pH ABG Total CO2 ABG O2 Saturation ABG Base Excess Cruz Test ABG Potassium A-a O2 Difference Respiratory Index Glucose Lactate Vent Mode Mechanical Rate FiO2 Tidal Volume PEEP Crit Value Called To Crit Value Called By Crit Value Read Back Blood Gas Notified Time Sodium 140 Potassium 3.4 L Chloride 93 L Carbon Dioxide 19 L Anion Gap 30 H BUN 21 H Creatinine 8.7 H* Est GFR ( Amer) 8 Est GFR (Non-Af Amer) 6 POC Glucose (mg/dL) 260 H Random Glucose 240 H Hemoglobin A1c Calcium 9.1 Phosphorus 6.9 H Magnesium 2.6 H Iron TIBC % Saturation Transferrin Ferritin Total Bilirubin AST ALT Alkaline Phosphatase Total Creatine Kinase 5933 H CK-MB (Mass) 168 H Troponin I 107.0000 H* Total Protein Albumin Globulin Albumin/Globulin Ratio Triglycerides Cholesterol LDL Cholesterol Direct HDL Cholesterol Vitamin B12 Folate Arterial Blood Potassium Urine Color Urine Clarity Urine pH Ur Specific [place] Urine Protein Urine Glucose (UA) Urine Ketones Urine Blood Urine Nitrate Urine Bilirubin Urine Urobilinogen Ur Leukocyte Esterase Urine WBC (Auto) Urine RBC (Auto) Ur Squamous Epith Cells Urine Bacteria Influenza Typ A,B (EIA) Blood Type Antibody Screen 07/24/18 07/24/18 07/24/18 01:13 02:20 03:47 WBC RBC Hgb Hct MCV MCH MCHC RDW Plt Count MPV Neut % (Auto) Lymph % (Auto) [place] % (Auto) Eos % (Auto) Baso % (Auto) Neut # (Auto) Lymph # (Auto) [place] # (Auto) Eos # (Auto) Baso # (Auto) Neutrophils % (Manual) Band Neutrophils % Lymphocytes % (Manual) Monocytes % (Manual) Nucleated RBC % Platelet Estimate Large Platelets Giant Platelets Polychromasia Hypochromasia (manual) Poikilocytosis (manual Anisocytosis (manual) Ovalocytes Schistocytes Retic Count PT INR APTT Puncture Site pCO2 pO2 HCO3 ABG pH ABG Total CO2 ABG O2 Saturation ABG Base Excess Cruz Test ABG Potassium A-a O2 Difference Respiratory Index Glucose Lactate Vent Mode Mechanical Rate FiO2 Tidal Volume PEEP Crit Value Called To Crit Value Called By Crit Value Read Back Blood Gas Notified Time Sodium Potassium Chloride Carbon Dioxide Anion Gap BUN Creatinine Est GFR ( Amer) Est GFR (Non-Af Amer) POC Glucose (mg/dL) 253 H 231 H 199 H Random Glucose Hemoglobin A1c Calcium Phosphorus Magnesium Iron TIBC % Saturation Transferrin Ferritin Total Bilirubin AST ALT Alkaline Phosphatase Total Creatine Kinase CK-MB (Mass) Troponin I Total Protein Albumin Globulin Albumin/Globulin Ratio Triglycerides Cholesterol LDL Cholesterol Direct HDL Cholesterol Vitamin B12 Folate Arterial Blood Potassium Urine Color Urine Clarity Urine pH Ur Specific [place] Urine Protein Urine Glucose (UA) Urine Ketones Urine Blood Urine Nitrate Urine Bilirubin Urine Urobilinogen Ur Leukocyte Esterase Urine WBC (Auto) Urine RBC (Auto) Ur Squamous Epith Cells Urine Bacteria Influenza Typ A,B (EIA) Blood Type Antibody Screen 07/24/18 07/24/18 07/24/18 04:40 05:13 05:50 WBC RBC Hgb Hct MCV MCH MCHC RDW Plt Count MPV Neut % (Auto) Lymph % (Auto) [place] % (Auto) Eos % (Auto) Baso % (Auto) Neut # (Auto) Lymph # (Auto) [place] # (Auto) Eos # (Auto) Baso # (Auto) Neutrophils % (Manual) Band Neutrophils % Lymphocytes % (Manual) Monocytes % (Manual) Nucleated RBC % Platelet Estimate Large Platelets Giant Platelets Polychromasia Hypochromasia (manual) Poikilocytosis (manual Anisocytosis (manual) Ovalocytes Schistocytes Retic Count PT INR APTT Puncture Site R brac pCO2 36 pO2 290 H HCO3 14.8 L ABG pH 7.20 L ABG Total CO2 15.2 L ABG O2 Saturation 99.7 H ABG Base Excess -13.1 L Cruz Test Na ABG Potassium 4.1 A-a O2 Difference 164.0 Respiratory Index 0.6 Glucose 131 H Lactate 17.6 H* Vent Mode Prvc Mechanical Rate 24 FiO2 70.0 Tidal Volume 500 PEEP 5 Crit Value Called To Polly cvicu rn Crit Value Called By Grazyna hernandez rt Crit Value Read Back Y Blood Gas Notified Time 615 Sodium 141.0 140 Potassium 3.5 L Chloride 99.0 91 L Carbon Dioxide 27 Anion Gap 25 H BUN 26 H Creatinine 8.9 H* Est GFR ( Amer) 7 Est GFR (Non-Af Amer) 6 POC Glucose (mg/dL) 151 H Random Glucose 134 H D Hemoglobin A1c Calcium 8.8 Phosphorus 5.7 H Magnesium 2.4 H Iron TIBC % Saturation Transferrin Ferritin 8070.0 Total Bilirubin 0.5 AST 590 H ALT 377 H Alkaline Phosphatase 64 Total Creatine Kinase CK-MB (Mass) Troponin I Total Protein 7.3 Albumin 4.4 Globulin 2.9 Albumin/Globulin Ratio 1.5 Triglycerides 274 H Cholesterol 142 LDL Cholesterol Direct 63 HDL Cholesterol 23 L Vitamin B12 781 Folate 6.3 Arterial Blood Potassium 4.1 Urine Color Urine Clarity Urine pH Ur Specific [place] Urine Protein Urine Glucose (UA) Urine Ketones Urine Blood Urine Nitrate Urine Bilirubin Urine Urobilinogen Ur Leukocyte Esterase Urine WBC (Auto) Urine RBC (Auto) Ur Squamous Epith Cells Urine Bacteria Influenza Typ A,B (EIA) Blood Type Antibody Screen 07/24/18 07/24/18 07/24/18 05:50 05:50 05:51 WBC 19.6 H RBC 3.42 L Hgb 9.6 L Hct 30.7 L MCV 89.9 D MCH 28.1 MCHC 31.2 L RDW 17.0 H Plt Count 183 MPV 9.0 Neut % (Auto) 87.7 H Lymph % (Auto) 7.2 L [place] % (Auto) 5.0 Eos % (Auto) 0.0 Baso % (Auto) 0.1 Neut # (Auto) 17.2 H Lymph # (Auto) 1.4 [place] # (Auto) 1.0 H Eos # (Auto) 0.0 Baso # (Auto) 0.0 Neutrophils % (Manual) 74 Band Neutrophils % 11 H* Lymphocytes % (Manual) 8 L Monocytes % (Manual) 7 Nucleated RBC % 1 H Platelet Estimate Normal Large Platelets Present Giant Platelets Present Polychromasia Hypochromasia (manual) Slight Poikilocytosis (manual Slight Anisocytosis (manual) Slight Ovalocytes Moderate Schistocytes Slight Retic Count PT INR APTT Puncture Site pCO2 pO2 HCO3 ABG pH ABG Total CO2 ABG O2 Saturation ABG Base Excess [place] Test ABG Potassium A-a O2 Difference Respiratory Index Glucose Lactate Vent Mode Mechanical Rate FiO2 Tidal Volume PEEP Crit Value Called To Crit Value Called By Crit Value Read Back Blood Gas Notified Time Sodium Potassium Chloride Carbon Dioxide Anion Gap BUN Creatinine Est GFR ( Amer) Est GFR (Non-Af Amer) POC Glucose (mg/dL) Random Glucose Hemoglobin A1c Calcium Phosphorus Magnesium Iron 46 L TIBC 210 L % Saturation 22 Transferrin 150.39 L Ferritin Total Bilirubin AST ALT Alkaline Phosphatase Total Creatine Kinase CK-MB (Mass) Troponin I Total Protein Albumin Globulin Albumin/Globulin Ratio Triglycerides Cholesterol LDL Cholesterol Direct HDL Cholesterol Vitamin B12 Folate Arterial Blood Potassium Urine Color Urine Clarity Urine pH Ur Specific [place] Urine Protein Urine Glucose (UA) Urine Ketones Urine Blood Urine Nitrate Urine Bilirubin Urine Urobilinogen Ur Leukocyte Esterase Urine WBC (Auto) Urine RBC (Auto) Ur Squamous Epith Cells Urine Bacteria Influenza Typ A,B (EIA) Blood Type Antibody Screen 07/24/18 07/24/18 07/24/18 05:51 05:51 05:51 WBC RBC Hgb Hct MCV MCH MCHC RDW Plt Count MPV Neut % (Auto) Lymph % (Auto) [place] % (Auto) Eos % (Auto) Baso % (Auto) Neut # (Auto) Lymph # (Auto) [place] # (Auto) Eos # (Auto) Baso # (Auto) Neutrophils % (Manual) Band Neutrophils % Lymphocytes % (Manual) Monocytes % (Manual) Nucleated RBC % Platelet Estimate Large Platelets Giant Platelets Polychromasia Hypochromasia (manual) Poikilocytosis (manual Anisocytosis (manual) Ovalocytes Schistocytes Retic Count 1.8 H PT INR APTT 41 H Puncture Site pCO2 pO2 HCO3 ABG pH ABG Total CO2 ABG O2 Saturation ABG Base Excess Cruz Test ABG Potassium A-a O2 Difference Respiratory Index Glucose Lactate Vent Mode Mechanical Rate FiO2 Tidal Volume PEEP Crit Value Called To Crit Value Called By Crit Value Read Back Blood Gas Notified Time Sodium Potassium Chloride Carbon Dioxide Anion Gap BUN Creatinine Est GFR ( Amer) Est GFR (Non-Af Amer) POC Glucose (mg/dL) Random Glucose Hemoglobin A1c 6.2 Calcium Phosphorus Magnesium Iron TIBC % Saturation Transferrin Ferritin Total Bilirubin AST ALT Alkaline Phosphatase Total Creatine Kinase CK-MB (Mass) Troponin I Total Protein Albumin Globulin Albumin/Globulin Ratio Triglycerides Cholesterol LDL Cholesterol Direct HDL Cholesterol Vitamin B12 Folate Arterial Blood Potassium Urine Color Urine Clarity Urine pH Ur Specific [place] Urine Protein Urine Glucose (UA) Urine Ketones Urine Blood Urine Nitrate Urine Bilirubin Urine Urobilinogen Ur Leukocyte Esterase Urine WBC (Auto) Urine RBC (Auto) Ur Squamous Epith Cells Urine Bacteria Influenza Typ A,B (EIA) Blood Type Antibody Screen 07/24/18 07/24/18 10:21 11:46 WBC RBC Hgb Hct MCV MCH MCHC RDW Plt Count MPV Neut % (Auto) Lymph % (Auto) [place] % (Auto) Eos % (Auto) Baso % (Auto) Neut # (Auto) Lymph # (Auto) [place] # (Auto) Eos # (Auto) Baso # (Auto) Neutrophils % (Manual) Band Neutrophils % Lymphocytes % (Manual) Monocytes % (Manual) Nucleated RBC % Platelet Estimate Large Platelets Giant Platelets Polychromasia Hypochromasia (manual) Poikilocytosis (manual Anisocytosis (manual) Ovalocytes Schistocytes Retic Count PT INR APTT Puncture Site Rra pCO2 39 pO2 260 H HCO3 8.8 L* ABG pH 7.01 L* ABG Total CO2 11.0 L ABG O2 Saturation 99.9 H ABG Base Excess -20.7 L Cruz Test Po ABG Potassium 3.3 L A-a O2 Difference 404.0 Respiratory Index 1.6 Glucose Lactate Vent Mode Prvc Mechanical Rate 24 FiO2 100.0 Tidal Volume 500 PEEP 5 Crit Value Called To Crit Value Called By Arie rodriguez,nancy Crit Value Read Back Y Blood Gas Notified Time 1025 Sodium 144.0 Potassium Chloride 98.0 Carbon Dioxide Anion Gap BUN Creatinine Est GFR ( Amer) Est GFR (Non-Af Amer) POC Glucose (mg/dL) Random Glucose Hemoglobin A1c Calcium Phosphorus Magnesium Iron TIBC % Saturation Transferrin Ferritin Total Bilirubin AST ALT Alkaline Phosphatase Total Creatine Kinase CK-MB (Mass) Troponin I Total Protein Albumin Globulin Albumin/Globulin Ratio Triglycerides Cholesterol LDL Cholesterol Direct HDL Cholesterol Vitamin B12 Folate Arterial Blood Potassium 3.3 L Urine Color Urine Clarity Urine pH Ur Specific [place] Urine Protein Urine Glucose (UA) Urine Ketones Urine Blood Urine Nitrate Urine Bilirubin Urine Urobilinogen Ur Leukocyte Esterase Urine WBC (Auto) Urine RBC (Auto) Ur Squamous Epith Cells Urine Bacteria Influenza Typ A,B (EIA) Negative for flu a/b Blood Type Antibody Screen Assessment & Plan - Assessment and Plan (Free Text) Assessment: Palliative consult There was no Advance Directive, PPS 10% I reviewed all medical records, diagnostic studies, examined patient in the bed, discussed goals of care with his partner. Patient is unresponsive to tactile/verbal stimuli, pupils fixed, corneal reflex absent, there is no cough reflex. Skin is diaphoretic, intact. Respirations supported by MV, O2Sat 96 %, cough reflex absent. Abdomen, distended, NGT drains maroon color gastric content, hypoactive bowel sounds. Herron cath at bed side, urine output minimal, Clinical Data Abstractor 8.9, last HD yesterday. There is no active ROM to upper nor lower extremities. BP 162/96, levophed and Vasopressin on board. WBC 19.6, Band neutrofils 11, Vanco and Genta IV on board. Patient's partner Mr. Grider at bed side. Patient was just Coded last time at 10 am this morning. Mr. Grider has been at bedside since last night. He admits being in disbelief about what happened. per him, patient was in his normal state of being before HD with mild cough only for the last few days. Mr. Grider stated he had a chance to talk to the Doctors and understands that patient's condition was very complex with poor outcome expected. I reviewed patient's latest clinical status, blood results and therapy provided. Using very gentle words, I led discussion toward end of life care and supported Mr. Grider all along. He cried repeating that he could not let go his partner. I further elicited if patient ever had spoken about the . Mr. Grider confirmed it and said that patient used to tell him no to ever allow his life to be prolonged by life support ( " tubes" how he called it). patient also spoke in the past that he would like to be buried next to Mr. Grider's mother. I shared with Doctor Grider that after speaking with Doctor Pisano and medical residents , the impression was that patient will never resume meaningfull recovery . Mr. Sheridan cried again. I encouraged him to hold patient's hand and talk to him. I questioned further aggressive interventions such as CPR. Mr. Sheridan said that despite how difficult it was for him to let go, he just can not take to see his partner suffering any further and wanted to be at bed side when the oc curs. I introduced POLST. mr. Grider choose to continue with all Medical interventions, BP support meds, IV antibiotics, but no CPR. I discussed further HD as unlikely due to patient's low BP. He understood. Mr. Rodriguez signed DNR and agreed that natural is promoted if patient's heart stops again. This was shared with ICU team on rounds. Impression * GCS 3, S/P cardiac arrest * Meaningful recovery is not expected * Metabolic acidosis * Respiratory acidosis * Patient's partner at bed side advocates for promotion of natural * Spiritual distress among immediate family/frien Suggestion * In respect of patient's partner wishes, I would continue pressors and IVF. This will give a partner more time to absorb all that happened so fast * Would not continue with HD due to low BP * No further diagnostic studies * Allow natural if heart stops again * Pastoral care for spiritual support * Agree with DNR Palliative care will sign off at this point. Family will need a lot of Spiritual support at this time. Advance care planing 60 min.
--- NOTE | 2018-07-24 12:58 | RAD ---
Date of service: 07/24/2018 HISTORY: Evaluate for interval change COMPARISON: Comparison made with through prior chest radiograph 07/23/2028 TECHNIQUE: 1 view obtained. FINDINGS: In situ ETT, the tip of which lies just subjacent to the superior margin of the transverse portion of the aortic arch.. Note that the belkis is not seen with certainty and the tip is estimated approximately 2.82.9 cm above belkis. In situ NGT, tip of which lies left upper quadrant of the abdomen. LUNGS: Improved pulmonary venous congestion PLEURA: No significant pleural effusion identified. CARDIOVASCULAR: Mild aortic atherosclerotic calcification present. Heart remains enlarged. OSSEOUS STRUCTURES: No significant abnormalities. VISUALIZED UPPER ABDOMEN: Normal. OTHER FINDINGS: None. IMPRESSION: ETT and NGT as above No active disease. Improved pulmonary venous congestion.
[2018-07-24 13:26] VITALS: RESP 24
[2018-07-24 16:38] VITALS: O2SAT 19
[2018-07-24 19:23] VITALS: BP 61/14; PULSE 53
--- NOTE | 2018-07-24 20:53 | CON ---
DATE: 07/24/2018 ATTENDING PHYSICIAN: Dr. Zuñiga. HISTORY OF PRESENT ILLNESS: Mr. Clark is in a coma and the history is obtained from the records. Mr. Clark is a 63-year-old black male with a history of HIV on HAART treatment, diabetes, hypertension, coronary artery disease, post 3 stents on maintenance hemodialysis Monday, Monday, Monday. Apparently after his treatment on 07/23/2018, he was eating a protein bar, apparently arrested with a questionable choking episode. In the field, he apparently had ventricular fibrillation. He was taken to the emergency room where he was intubated with CPR continuing. He subsequently was placed on a hypothermic blanket and early this morning he had another asystolic cardiac arrest. On 07/23/2018, his white count was 15,200, his hemoglobin was 10.1, hematocrit 32.1, platelet count 178,000. Blood gas showed a pH of 7.17 with a pO2 of 285 and a pCO2 of 43 with a base excess of -12.4. Sodium was 135, potassium 3.5, chloride 92, CO2 of 25, BUN 18, creatinine 7.9, glucose 282, calcium 9.4, phosphorus 4, magnesium 2.4. Total bili 0.7, AST of 527, ALT of 446, alk phos of 74, total protein 7.5, albumin 4.5. His troponin was 61.5 and repeated 107. His CPK was 168. Today, his white count is 19,600 with a hemoglobin of 9.6. His pH is 7.2, pO2 of 290 with a pCO2 of 36 and a base excess of -13. Sodium 140, potassium 3.5, glucose 151. PAST MEDICAL HISTORY: Please see the above. His hospitalizations are not known. ALLERGIES: HE IS ALLERGIC TO PEANUT BUTTER WHICH CAUSES HIVES. MEDICATIONS: Include albuterol, PhosLo, Zetia, Pepcid, Neurontin, insulin. He is presently on vasopressin, a bicarbonate drip and Levophed. FAMILY HISTORY: Unknown. SOCIAL HISTORY: He discontinued cigarette 30 years ago. There was no alcohol or drug abuse. REVIEW OF SYSTEMS: Unknown other than a cough with white sputum over the last several days. PHYSICAL EXAMINATION: GENERAL: He was an obese male, intubated and unresponsive. He was intubated in no distress. VITAL SIGNS: His blood pressure was 159/95. His last temperature was 91.6, pulse was 76. LUNGS: Clear with coarse sounds. HEART: The heart sounds were distant and regular. ABDOMEN: Soft, not overly distended. EXTREMITIES: Access in his left arm revealed no bruit and there was no leg edema. IMPRESSION: End-stage renal disease dialysis dependent, diabetic nephropathy, cannot rule out the effect of human immunodeficiency virus on renal function, history of hypertension, coronary artery disease, post percutaneous transluminal coronary angioplasty and stent, cardiac arrest, etiology unclear. RECOMMENDATIONS: Recommend case to be discussed with the packing checker. To obtain consent from family. We will schedule dialysis with no heparin in view of marked metabolic acidosis. We will continue to follow with you. Thank you for your kind referral. Sincerely Vishnu Liriano MD
--- NOTE | 2018-07-25 06:18 | HP ---
HISTORY OF PRESENT ILLNESS: Mr. Clark was admitted to the hospital with cardiac arrest. The patient underwent multiple CPRs of the alcoholism, admitted to the ICU with hypertension. PHYSICAL EXAMINATION: GENERAL: The patient is comatose, not responded to any dose of chemical stimuli. HEENT: Within normal limit. NECK: Supple. CHEST: Symmetrical. HEART: Regular. ABDOMEN: Soft. EXTREMITIES: No edema. ASSESSMENT AND PLAN: The patient suffers from cardiac arrest and respiratory failure. The patient is to get bedrest, supportive care in intensive care unit. Wendy Zuñiga MD
--- NOTE | 2018-07-25 21:36 | CARD ---
APPROVED REPORT Date of service: 07/23/2018 EKG Measurement Heart [id number] <Conclusion> Atrial fibrillation with rapid ventricular response Right bundle branch block Abnormal ECG
== END 2018-07-24 17:42 | DRG 296 ==
LOC: C.ER 10:21 → C.9I 11:36
PROVIDERS: ADMIT Internal Medicine Pulmonary Disease; ATTEND Internal Medicine Pulmonary Disease
PROC: 5A1945Z Respiratory Ventilation, 24-96 Consecutive Hours (ICD-10-PCS; principal; 2018-07-23)
PROC: 5A12012 Performance of Cardiac Output, Single, Manual (ICD-10-PCS; 2018-07-23)
PROC: 0BH17EZ Insertion of Endotracheal Airway into Trachea, Via Natural or Artificial Opening (ICD-10-PCS; 2018-07-23)
PROC: 3E033XZ Introduction of Vasopressor into Peripheral Vein, Percutaneous Approach (ICD-10-PCS; 2018-07-24)
DX: I46.9 Cardiac arrest, cause unspecified (principal); N18.6 End stage renal disease; J96.90 Respiratory failure, unspecified, unspecified whether with hypoxia or hypercapnia; E87.4 Mixed disorder of acid-base balance; I13.11 Hypertensive heart and chronic kidney disease without heart failure, with stage 5 chronic kidney disease, or end stage renal disease; I49.01 Ventricular fibrillation; Z99.2 Dependence on renal dialysis; I25.10 Atherosclerotic heart disease of native coronary artery without angina pectoris; Z95.5 Presence of coronary angioplasty implant and graft; E11.22 Type 2 diabetes mellitus with diabetic chronic kidney disease; E11.21 Type 2 diabetes mellitus with diabetic nephropathy; Z21 Asymptomatic human immunodeficiency virus [HIV] infection status; F10.20 Alcohol dependence, uncomplicated; Z87.891 Personal history of nicotine dependence; D63.8 Anemia in other chronic diseases classified elsewhere; D69.6 Thrombocytopenia, unspecified; Z51.5 Encounter for palliative care; Z66 Do not resuscitate